=== PATIENT | male | born 1945 | race Caucasian/White ===

== ENCOUNTER 2019-06-01 16:17 | Inpatient (IN) ==
[2019-06-01] MEDS ORDERED: MoRPHine SULFATE 2 MG/ML CARP IV PRN (16:53)
[2019-06-01] MEDS ORDERED: MoRPHine SULFATE 4 MG/ML 1 ML CARP\\VIAL IV PRN ×2 (16:53→19:53)
[2019-06-01 17:38] LABS: Basophils # (auto) 0.01 K/uL (0-0.2); Eosinophils # (auto) 0.19 K/uL (0-0.5); Eosinophils % (auto) 0.9 %; Hemoglobin 13.5 g/dL (14.0-18.0); Immature Granulocytes # (auto) 0.07 K/uL (0.00-0.02); Immature Granulocytes % (auto) 0.3 %; Lymphocytes # (auto) 1.12 K/uL (1.2-3.4); Lymphocytes % (auto) 5.6 %; Mean Corpuscular Hemoglobin 26.3 pg (25-34); Mean Corpuscular Hgb Conc 31.4 g/dL (32-36); Mean Corpuscular Volume 83.8 fL (80-100); Mean Platelet Volume 9.9 fL (7.4-10.4); Monocytes # (auto) 1.51 K/uL (0.11-0.59); Monocytes % (auto) 7.5 %; Neutrophils # (auto) 17.16 K/uL (1.4-6.5); Neutrophils % (auto) 85.7 %; Nucleated RBC # (auto) 0.02 K/uL (0-0); Nucleated RBC % (auto) 0.1 %; Platelet Count 265 K/uL (130-400); RDW Coefficient of Variation 15.9 % (11.5-14.5); RDW Standard Deviation 48.6 fL (36.4-46.3); Red Blood Count 5.13 M/uL (4.7-6.1); White Blood Count 20.06 K/uL (4.8-10.8)
[2019-06-01 17:47] LABS: INR 1.1 (0.9-1.1); Partial Thromboplastin Time 26.6 Seconds (21.0-31.0); Prothrombin Time 11.1 Seconds (9.0-12.0)
[2019-06-01 17:54] LABS: BUN Creatinine Ratio 21.5 (10-20); Calcium 9.3 mg/dl (8.5-10.1); Est GFR (African American) 103.6; Est GFR (Non-African American) 89.4; Potassium 3.5 mmol/L (3.5-5.1)
--- NOTE | 2019-06-01 18:10 | XRay Report ---
XR chest 1V portable CLINICAL HISTORY: Right hip pain. COMPARISON STUDY: Chest radiograph November 21, 2009. FINDINGS: There is underlying emphysema. Cardiomediastinal silhouette is unremarkable. There is no pn eumothorax or pleural effusion. No consolidation to suggest pneumonia. Mild interstitial prominence. IMPRESSION: 1. No pneumothorax. 2. Subtle interstitial thickening which could reflect mild pulmonary edema superimposed upon emphysem a. ACT 112: Negative or not required by law. Electronically signed by: Vick Covington M.D. 06/01/2019 6:09 PM
--- NOTE | 2019-06-01 18:10 | XRay Report ---
XR hip RT 2V w pelvis HISTORY: 73 years-old Male r hip pain acute pelvic and right hip pain status post fall COMPARISON: CT abdomen and pelvis 12/30/2017 TECHNIQUE: AP view the pelvis with 2 views of the right hip FINDINGS: Mild to moderate bilateral hip osteoarthritis with chondrocalcinosis. Mildly demineralized appearance the bones. Mild soft tissue swelling about the right hip. There is an acute transcervical fracture o f the right femur with a few millimeters of impaction and superior displacement. No dislocation. No a cute pelvic fracture. IMPRESSION: Acute slightly impacted and minimally displaced transcervical fracture of the right femur . ACT 112: Negative or not required by law. The above report was generated using voice recognition software. It may contain grammatical, syntax o r spelling errors. Electronically signed by: Luis A Briseno M.D. 06/01/2019 6:08 PM
--- NOTE | 2019-06-01 18:11 | XRay Report ---
XR wrist RT min 3V routine HISTORY: 73 years-old Male r wrist pain acute right-sided wrist pain status post fall COMPARISON: None TECHNIQUE: 4 views of the right wrist FINDINGS: Demineralized appearance of the bones. Chondrocalcinosis of the TFCC and radiocarpal joint. Moderate radiocarpal with severe first carpometacarpal osteoarthritis. Moderate degenerative changes of the di stal radioulnar joint. Demineralized appearance of the bones. Cortical irregularity of the distal rad ial metaphysis is most pronounced along the dorsal margin. Mild soft tissue swelling. IMPRESSION: Cortical irregularity of the distal radial metaphysis is suggestive of a subtle acute non displaced fracture with mild associated soft tissue swelling. ACT 112: Negative or not required by law. The above report was generated using voice recognition software. It may contain grammatical, syntax o r spelling errors. Electronically signed by: Luis A Briseno M.D. 06/01/2019 6:10 PM
--- NOTE | 2019-06-01 18:22 | History & Physical Report ---
Date of Service June 01, 2019 Assessment & Plan (1) Closed right hip fracture: - Admit to med surg with tele - Ortho consulted, Dr. Cole network control technician - Hip fracture order set completed - Pain management with Tylenol [id number], Percocet, IV morphine sulfate as needed, bowel regimen ordered - Pt has not really started xarelto as this was only prescribed today. Start after surgical procedure. - Allow diet tonight and make NPO after midnight in anticipation of surgical procedure in morning. - Check type and screen - Imaging reviewed revealing an acute transcervical fracture of the right femur with a few millimeters of impaction and superior displacement. No dislocation. No acute pelvic fracture. (2) Right radial fracture: - Imaging reviewed showing cortical irregularity of the distal radial metaphysis is suggestive of a subtle acute nondisplaced fracture with mild associated soft tissue swelling. - Await ortho recs for splint (3) Atrial fibrillation with RVR: - Active on admission, cardizem not compatible with other IV meds, difficulty with placing second line. Will try lopressor IV 5 mg stat, and then Q5min prn, and give Toprol XL 25 mg PO now ( as per [employer] meds). BP elevated at 180s/90s. - Will hold on cardizem gtt at this time unless toprol not sufficient to convert. - Consider cardiology consultation - Dr. Dinero see's as outpt, was in office earlier this morning - Paroxysmal prior to this admission. - Recently had holter monitor evaluation about 2 weeks ago. - Xarelto to start after surgery, can continue asa 81 mg - EKG reviewed (4) CAD (coronary artery disease): -Continue ASA 81 mg, continue Imdur, lisinopril, metoprolol, simvastatin (5) Hypertension: -Medications as above, BP elevated at 187/77, monitor, likely due to pain (6) Hypercholesterolemia: -Continue simvastatin 40 mg HS (7) COPD (chronic obstructive pulmonary disease): - Currently smoking 1 ppd x 51 years. Will order nicotine patch to start now. - Check Vit D level with am labs, likely osteoporosis contributing to hip f racture. (8) Psoriasis: - stable (9) DVT prophylaxis: -Abdirahman on left leg, hold chemical ppx in the setting of likely surgery tomorrow CODE STATUS: Full Disposition: Patient from home, likely to remain in the hospital x1 to 2 days History of Present Illness Primary Care Provider: Mingo Dinero MD This is a 73-year-old male with past medical history of paroxysmal A. fib on Xarelto, HTN, HLD, CAD, COPD, current tobacco use with 50 pack year hx, hypokalemia, psoriasis who presents after fall sustained resulting in a right transcervical fracture of the right femur as well as a right distal radius fracture. The patient notes that he was outside attempting to picking tech some soda cans in his yard earlier this afternoon, when he lost his balance and fell in the yard. He had significant difficulty getting up and so layed in his yard for about 30 minutes. He was eventually able to crawl through the yard to his parked car, and get inside it. He called his who then notified EMS. He also notes that he was in this morning for a routine cardiology appointment, where he reviewed his holter monitor results with Dr. Dinero. He was given a Rx for Xarelto, but has not yet started taking this medication yet. He takes all other medications on the list routinely. Upon presentation to the ER the patient was found to be in A. fib with RVR with a heart rate of 130 as documented by EKG and is the same while at bedside. Allergies Allergy/AdvReac Type Severity Reaction Status Date / Time Penicillins Allergy Unknown ` Verified 06/01/19 18:11 Home Medications Home Medications Medication Instructions Recorded Confirmed Type Symbicort 2 puff INHALATION BID PRN 12/27/17 06/01/19 History aspirin [Aspir-81] 81 mg PO QAM 12/27/17 06/01/19 History isosorbide mononitrate 30 mg PO QAM 12/27/17 06/01/19 History lisinopril 20 mg PO QAM 12/27/17 06/01/19 History metoprolol succinate 25 mg PO BID 12/27/17 06/01/19 History simvastatin 40 mg PO HS 12/27/17 06/01/19 History amiodarone 200 mg tablet 200 mg PO BID #60 tab 06/01/19 06/01/19 Rx rivaroxaban 20 mg tablet 20 mg PO DAILY #90 tab 06/01/19 06/01/19 Rx Past Med/Surg History Medical History Abscess (Acute) CAD (coronary artery disease) (Chronic) COPD (chronic obstructive pulmonary disease) (Chronic) Diverticulitis (Acute) Dyslipidemia (Chronic) History of left heart catheterization (Resolved) Hypertension (Chronic) Psoriasis (Chronic) Surgical History Stented coronary artery (Resolved) Family History Father Myocardial infarction Social History Preferred Language: Irish Communication Ability: Effective Beliefs That Will Affect Care: None marital status: Current Living Situation: Spouse Other Information That Helps Us Care for You: No Feels Safe at Home: Yes Safety Concerns: Feels Safe At This Time Smoking Status: Never smoker Tobacco Type: cigarettes ; Cigarettes Per Day: 20 ; Second Hand Exposure: No ; Hx Alcohol Use: No Hx Substance Use: No Review of Systems Review of Systems: Constitutional: No fever, sweats or chills, + smells of smoke Eyes: No diplopia, no worsening or blurred vision ENT: normal hearing, no trouble swallowing Respiratory: No cough, sputum, dyspnea at rest or on exertion Cardiovascular: No chest pain, tightness or palpitations Abdomen: No pain, nausea, vomiting, diarrhea or constipation Musculoskeletal: + R hip joint pain, R wrist pain with minimal movement. No calf pain or swelling Neurologic: No weakness, numbness/tingling, or balance problems Psychiatric: No anxiety or depression Skin: No rash or itch Physical Exam Physical Exam: General: awake, alert, no apparent distress, + smells of smoke Head: Normocephalic, atraumatic ENT: PERRL, EOMI, no pharyngeal exudate, mucous membranes moist Chest: Clear to auscultation, on2L via NC, no adventitious breath sounds Cardiac: Afib with RVR with HR in the 130s at rest laying in bed, no murmur, no JVD, normal peripheral pulses, good capillary refill Abdominal: NABS x 4 quadrants, soft, nontender to palpation, no rebound, guarding or tenderness Extremities: + RLE externally rotated and shortened, pain with palpation over the R hip region, sensation to light touch intact distally. R wrist pain with pronation. Otherwise normal inspection, no peripheral edema or erythema, calfs nontender to palpation Psych: Normal mood and affect Neuro: AAO x 3, no motor deficits, speech is clear, no peripheral sensory deficits Constitutional: WD/WN, vitals as above Eyes: normal visual nicolas by confrontation and + anicteric sclerae Neck: normal visual inspection and trachea midline Respiratory: normal respiratory effort, lungs clear to auscultation Cardiovascular: Rate/Rhythm: + irregularly irregular Gastrointestinal (Abdomen): Inspection/Auscultation: abdomen not distended Percussion/Palpation: abdomen soft; abdomen nontender Musculoskeletal: Head/Neck/Chest: normocephalic and head atraumatic Neg for peripheral LE edema, + pedal pulses Skin: no rashes, warm and dry Neurologic: awake; not confused Speech / Cognition: normal speech Psychiatric: A+Ox3, euthymic affect Lymphatic: Exam as done by Amanda Noriega DO Results & Data Vital Signs (Past 12 Hours) Vital Signs Temp Pulse Resp BP Pulse Ox 06/01/19 16:27 36.8 C 78 18 211/92 H 99 Diagnostic Findings XR chest 1V portable CLINICAL HISTORY: Right hip pain. COMPARISON STUDY: Chest radiograph November 21, 2009. FINDINGS: There is underlying emphysema. Cardiomediastinal silhouette is unremarkable. There is no pneumothorax or pleural effusion. No consolidation to suggest pneumonia. Mild interstitial prominence. IMPRESSION: 1. No pneumothorax. 2. Subtle interstitial thickening which could reflect mild pulmonary edema superimposed upon emphysema. ACT 112: Negative or not required by law. XR hip RT 2V w pelvis HISTORY: 73 years-old Male r hip pain acute pelvic and right hip pain status post fall COMPARISON: CT abdomen and pelvis 12/30/2017 TECHNIQUE: AP view the pelvis with 2 views of the right hip FINDINGS: Mild to moderate bilateral hip osteoarthritis with chondrocalcinosis. Mildly demineralized appearance the bones. Mild soft tissue swelling about the right hip. There is an acute transcervical fracture of the right femur with a few millimeters of impaction and superior displacement. No dislocation. No acute pelvic fracture. IMPRESSION: Acute slightly impacted and minimally displaced transcervical fracture of the right femur. ACT 112: Negative or not required by law. The above report was generated using voice recognition software. It may contain grammatical, syntax or spelling errors. Electronically signed by: Luis A Briseno M.D. 06/01/2019 6:08 PM XR wrist RT min 3V routine HISTORY: 73 years-old Male r wrist pain acute right-sided wrist pain status post fall COMPARISON: None TECHNIQUE: 4 views of the right wrist FINDINGS: Demineralized appearance of the bones. Chondrocalcinosis of the TFCC and radiocarpal joint. Moderate radiocarpal with severe first carpometacarpal osteoarthritis. Moderate degenerative changes of the distal radioulnar joint. Demineralized appearance of the bones. Cortical irregularity of the distal radial metaphysis is most pronounced along the dorsal margin. Mild soft tissue swelling. IMPRESSION: Cortical irregularity of the distal radial metaphysis is suggestive of a subtle acute nondisplaced fracture with mild associated soft tissue swelling. ACT 112: Negative or not required by law. The above report was generated using voice recognition software. It may contain grammatical, syntax or spelling errors. ECG Additional Comments: 01-JUN-2019 18:15:01 [facility]-EDSTAT ROUTINE RETRIEVAL Poor data quality, interpretation may be adversely affected Atrial fibrillation with rapid ventricular response with premature ventricular or aberrantly conducted complexes Inferior infarct , age undetermined Marked ST abnormality, possible anterolateral subendocardial injury Abnormal ECG When compared with ECG of 24-NOV-2009 06:16, Significant changes have occurred 25mm/s 10mm/mV 150Hz 9.0.9 12SL 241 JEZ: 10 Referred by: REFERRED SELF Unconfirmed Vent. rate 130 BPM MT interval * ms QRS duration 108 ms QT/QTc 338/497 ms P-R-T axes * 46 265 Code Status & VTE Plan Code Status Full code - discussed with the pt at bedside. Supervising Physician Co-Signing Physician Notes Pt seen and examined by me. States purely mechanical fall. Has pain with any movement of R LE. Denies chest pain or SOB. Tolerating PO without issue. Agree with HPI/ROS as noted by PA See above for my exam in PE section Agree with plan as outlined above R hip fx, planning for OR R wrist fx, nondisplaced Afib, hx of same on xarelto. Monitor PG Care Time/CCT Total # of Minutes Spent Total Time Spent with Patient: Total time spent is greater than 50% in coordination of care (as documented) at patient's floor/unit and/or counseling patient: Coding Level of Care Code 25560 Initial Inpt Care Lvl 3 Diagnoses Closed right hip fracture S72.001A Right radial fracture S52.91XA Atrial fibrillation with RVR I48.91 CAD (coronary artery disease) I25.10 Associated angina: without angina Coronary Disease-Associated Artery/Lesion type: [place] artery [place] vs. transplanted heart: [place] heart Hypertension I10 Hypertension type: essential hypertension Hypercholesterolemia E78.00 COPD (chronic obstructive pulmonary disease) J44.9 COPD type: unspecified COPD Psoriasis L40.9 DVT prophylaxis Z29.9 (1) CAD (coronary artery disease) Associated angina: without angina Coronary Disease-Associated Artery/Lesion type: [place] artery [place] vs. transplanted heart: [place] heart Qualified Code(s): I25.10 - Atherosclerotic heart disease of [place] coronary artery without angina pectoris (2) COPD (chronic obstructive pulmonary disease) COPD type: unspecified COPD Qualified Code(s): J44.9 - Chronic obstructive pulmonary disease, unspecified (3) Hypertension Hypertension type: essential hypertension Qualified Code(s): I10 - Essential (primary) hypertension
[2019-06-01] MEDS ORDERED: dilTIAZem HCl 5 MG/ML 5 ML VIAL IV STA (18:29)
[2019-06-01] MEDS ORDERED: dilTIAZem HCL 125 MG in DEXTROSE 5% 100 ML IV SCH (18:30)
[2019-06-01] MEDS ORDERED: METOPROLOL TARTRATE 1 MG/ML VIAL IV PRN (18:53)
[2019-06-01] MEDS ORDERED: METOPROLOL TARTRATE 1 MG/ML VIAL IV STA (18:58)
[2019-06-01 19:18] LABS: Appearance Urine Cloudy (Clear); Bacteria Urine Automated Negative (Negative); Bilirubin Urine Negative (Negative); Blood Urine 2+ (Negative); Color Urine Dark Yellow; Epithelial Cell Urine Auto 20-30 /lpf (0-5); Glucose Urine UA Negative (Negative); Ketones Urine 1+ (Negative); Leukocyte Esterase Urine Negative (Negative); Nitrite Urine Negative (Negative); Protein Urine 1+ (Negative); RBC Urine Automated >30 /hpf (0-4); Specific Gravity Urine 1.028 (1.000-1.030); Urobilinogen Urine Negative (Negative); pH Urine 5.5 (4.5-7.5)
[2019-06-01] MEDS: METOPROLOL SUCC 50MG EXT REL TAB PO SCH ×2 (19:28→23:36)
[2019-06-01] MEDS ORDERED: NALOXONE HCL 0.4 MG/1 ML VIAL/CARP IV PRN (19:53)
[2019-06-01] MEDS ORDERED: MAGNESIUM HYDROXIDE SUSP 30 ML UDC PO PRN (19:53)
[2019-06-01] MEDS ORDERED: bisacodyL 10 MG SUPP PR PRN (19:53)
[2019-06-01] MEDS: OXYCODONE HCL IR 5 MG TAB (IMMEDIATE RELEASE) PO PRN (21:30)
[2019-06-01] MEDS: ACETAMINOPHEN 500 MG TAB PO SCH (21:31)
[2019-06-01] MEDS: AMIODARONE 200 MG TAB PO SCH (21:32)
[2019-06-01] MEDS: DOCUSATE SODIUM/SENNA 50/8.6MG TAB PO SCH (21:32)
[2019-06-01] MEDS: SIMVASTATIN 40 MG TAB PO SCH (21:33)
[2019-06-01] MEDS: NICOTINE 21 MG/24 HR TDSY TD SCH (21:34)
--- NOTE | 2019-06-01 22:47 | Emergency Department Note ---
Entered by Monica Landaverde acting as a scribe for Villa Hudson DO History of Present Illness General Chief complaint: Fall Stated complaint: FALL, R HIP & WRIST PAIN History of Present Illness Onset (ago): hour(s) (prior to arrival) Location: right (fall) Pain Consistency: + other (episode) Maximum Pain Intensity: 8 Exacerbated By: + other (pressure and rotating hip) Associated symptoms: + denies other symptoms (numbness and tingling, back pain) and + other (right hip pain, right wrist pain); no chest pain The patient is a 73 year old M who presents to the Emergency Room with complaints of an episode of a fall that occurred prior to arrival. The patient states that he was outside, trying to grape picker something from the end of his driveway, when he ended up falling. He adds that he ended up falling on his right side and injured his right wrist and right hip. He notes that due to his right hip pain, he cannot put pressure on it or rotate his hip. He denies experiencing any numbness or tingling in his toes and fingers. He also denies hitting his head from the fall. He states that he is not on any blood thinning medications. He denies that he is currently experiencing back pain and chest pain. He states that he has a history of stent placement. He adds that he is a current smoker. Home Medications Home Medications Medication Instructions Recorded Confirmed Type Symbicort 2 puff INHALATION BID PRN 12/27/17 06/01/19 History aspirin [Aspir-81] 81 mg PO QAM 12/27/17 06/01/19 History isosorbide mononitrate 30 mg PO QAM 12/27/17 06/01/19 History lisinopril 20 mg PO QAM 12/27/17 06/01/19 History metoprolol succinate 25 mg PO BID 12/27/17 06/01/19 History simvastatin 40 mg PO HS 12/27/17 06/01/19 History amiodarone 200 mg tablet 200 mg PO BID #60 tab 06/01/19 06/01/19 Rx rivaroxaban 20 mg tablet 20 mg PO DAILY #90 tab 06/01/19 06/01/19 Rx Allergies Allergy/AdvReac Type Severity Reaction Status Date / Time Penicillins Allergy Unknown ` Verified 06/01/19 18:11 Past Med/Surg History Social History Preferred Language: Luxembourgish Communication Ability: Effective Beliefs That Will Affect Care: None marital status: Current Living Situation: Spouse Other Information That Helps Us Care for You: No Feels Safe at Home: Yes Safety Concerns: Feels Safe At This Time Smoking Status: Never smoker Tobacco Type: cigarettes ; Cigarettes Per Day: 20 ; Second Hand Exposure: No ; Hx Alcohol Use: No Hx Substance Use: No Review of Systems See HPI for pertinent positives & negatives. and A total of 10 systems reviewed and were otherwise negative Physical Exam Vital Signs Vital Signs - 24 hr 06/01/19 16:27 06/01/19 17:01 06/01/19 17:31 Temperature 36.8 C Temperature Source Oral Pulse Rate 78 72 68 Pulse Rate from SpO2 Sensor 65 63 Respiratory Rate 18 23 25 H Blood Pressure 211/92 H 182/84 H 187/77 H Blood Pressure Mean 131 95 126 Pulse Oximetry 99 94 95 Oxygen Delivery Method Room Air Sepsis Recent Fever Within 48 Hours No Sepsis New/Unexplained Change in Mental Status No Sepsis Action Taken by Nursing No Action Required GENERAL: alert, well appearing, well nourished, no distress, non-toxic HEAD: normal cephalic, atraumatic EYE EXAM: normal conjunctiva, PERRL and EOM's grossly intact OROPHARYNX: no exudate, no erythema, lips, buccal mucosa, and tongue normal and mucous membranes are moist EARS: TMs clear b/l NECK: supple, no nuchal rigidity, no adenopathy, non-tender CHEST: stable to compression anteriorly and posteriorly LUNGS: clear to auscultation. Normal chest wall mechanics HEART: no murmurs, S1 normal and S2 normal ABDOMEN: abdomen soft, non-tender, normo-active bowel sounds, no masses, no rebound or guarding. PELVIS: stable to compression anteriorly and posteriorly BACK: Back is symmetrical on inspection and there is no deformity, no midline tenderness, no CVA tenderness. UPPER EXTREMITIES: Full active and passive range of motion of all extremities with exception of right wrist, skin intact radial pulse 2/4, no tenderness throughout digits, forearm and shoulder. LOWER EXTREMITIES: Full active and passive range of motion of all extremities with exception of right leg which is in 30 degree flexion, significant pain to rotation and palpation. No tenderness to palpation of the mid femur tracking through, knee, schultz and foot. Able to wiggle toes. DP pulse 2/4. NEURO EXAM: Normal sensorium, cranial nerves II-XII grossly intact, normal speech. GCS: 15. Course Course ED COURSE: Vital signs were reviewed and showed hypertension. The patients medical record was reviewed The above diagnostic studies were performed and reviewed. ED treatments and interventions as stated above. 1648: The patient was evaluated in room A3. A complete history and physical examination was performed. 1830: Patient declines any chest pain and shortness of breath. Patient is currently in A fib with RVR. He states that he wants to go with Dr. Cole, Orthopedic Surgeon. 185: I reviewed the patient's case with Patricia Webb. [facility] Hospitalist. She will evaluate the patient for further management. She states that the admitting service wants to hold the Cardizem drip because we are unable to get a secondary IV into the patient. She wants me to start the patient on IV Lopressor. 1857: Upon reevaluation, the patient is not doing any better. I discussed my findings with the patient and he understands and agrees with the treatment plan. Based on the patients age, coexisting illnesses, exam and lab findings the decision to treat as an inpatient was made. The patient remained stable while under my care. The patient will be evaluated for further management. Administered Medications Acetaminophen (Tylenol) 1,000 mg PO Q8 RAMON Stop: 07/01/19 21:59 Last Admin: 06/01/19 21:31 Dose: 1,000 mg Documented by: [id number] Amiodarone HCl (Cordarone) 200 mg PO BID RAMON Stop: 07/01/19 20:59 Last Admin: 06/01/19 21:32 Dose: 200 mg Documented by: [id number] Metoprolol Succinate (Toprol Xl) 25 mg PO BID RAMON Stop: 07/01/19 18:59 Last Admin: 06/01/19 19:28 Dose: 25 mg Documented by: [id number] Nicotine (Nicoderm Cq) 21 mg TD QAM RAMON Stop: 07/01/19 20:59 Last Admin: 06/01/19 21:34 Dose: Not Given Documented by: [id number] Oxycodone HCl (Roxicodone Immediate Rel) 5 mg PO Q4H PRN PRN Reason: MODERATE Pain (Scale 4,5,6) Stop: 06/15/19 19:52 Last Admin: 06/01/19 21:30 Dose: 5 mg Documented by: [id number] Senna/Docusate Sodium (Senokot S) 2 tab PO [facility] Stop: 07/01/19 20:59 Last Admin: 06/01/19 21:32 Dose: 2 tab Documented by: [id number] Simvastatin (Zocor) 40 mg PO [facility] Stop: 07/01/19 20:59 Last Admin: 06/01/19 21:33 Dose: 40 mg Documented by: [id number] Discontinued Medications Diltiazem HCl (Cardizem) 10 mg IV NOW STA Stop: 06/01/19 18:30 Last Admin: 06/01/19 20:03 Dose: Not Given Documented by: [id number] Diltiazem HCl 125 mg/ Dextrose 125 mls @ 5 mls/hr IV .Q24H RAMON; Protocol Stop: 07/01/19 18:29 Last Admin: 06/01/19 20:03 Dose: Not Given Documented by: [id number] Diltiazem HCl 10 mg/ Syringe 2 mls @ 1 mls/min IV ONE ONE Stop: 06/01/19 18:46 Last Admin: 06/01/19 20:03 Dose: Not Given Documented by: [id number] Metoprolol Tartrate (Lopressor) 5 mg IV NOW STA Stop: 06/01/19 18:59 Last Admin: 06/01/19 19:14 Dose: 5 mg Documented by: [id number] Morphine Sulfate (Morphine Sulfate) 4 mg IV Q1H PRN PRN Reason: Severe Pain (Rating 7,8,9,10) Stop: 06/15/19 16:52 Last Admin: 06/01/19 17:36 Dose: 4 mg Documented by: [id number] Critical Care Time Critical Care Time: Yes Total Critical Care Time: 32 I have personally spent 32 minutes of critical care time in the direct management of this patient. This includes bedside care, interpretation of diagnostic studies, and testing, discussion with consultants, patient, and family members, and other required patient management activities. This 32 minutes is in excess of all separately billable procedures. Medical Decision Making Differential Diagnosis Differential diagnoses include major intracranial, cervical, spinal, thoracic, abdominal, pelvic and neurologic injury. Fracture, contusion, sprain, strain, laceration, abrasions included as well. Medical Records Attestation: I reviewed the patient's medical records. Home Medications Current Medication List: was personally reviewed by me Laboratory Data Attestation: I reviewed the patient's lab results. Result diagrams: 06/01/19 17:20 06/01/19 17:20 Lab Results 06/01/19 06/01/19 06/01/19 Range/Units 17:20 17:20 17:20 WBC 20.06 H (4.8-10.8) K/uL RBC 5.13 (4.7-6.1) M/uL Hgb 13.5 L (14.0-18.0) g/dL Hct 43.0 (42-52) % MCV 83.8 (80-100) fL MCH 26.3 (25-34) pg MCHC 31.4 L (32-36) g/dL RDW Std Deviation 48.6 H (36.4-46.3) fL RDW Coeff of Ike 15.9 H (11.5-14.5) % Plt Count 265 (130-400) K/uL MPV 9.9 (7.4-10.4) fL Immature Gran % (Auto) 0.3 % Neut % (Auto) 85.7 % Lymph % (Auto) 5.6 % Irion % (Auto) 7.5 % Eos % (Auto) 0.9 % Baso % (Auto) 0.0 % Immature Gran # (Auto) 0.07 H (0.00-0.02) K/uL Neut # (Auto) 17.16 H (1.4-6.5) K/uL Lymph # (Auto) 1.12 L (1.2-3.4) K/uL Irion # (Auto) 1.51 H (0.11-0.59) K/uL Eos # (Auto) 0.19 (0-0.5) K/uL Baso # (Auto) 0.01 (0-0.2) K/uL Absolute Nucleated RBC 0.02 H (0-0) K/uL Nucleated RBC % (auto) 0.1 % PT 11.1 (9.0-12.0) Seconds INR 1.1 (0.9-1.1) APTT 26.6 (21.0-31.0) Seconds PTT Ratio 1.0 Sodium 140 (136-145) mmol/L Potassium 3.5 (3.5-5.1) mmol/L Chloride 103 (98-107) mmol/L Carbon Dioxide 34 H (21-32) mmol/L Anion Gap 3.0 (3-11) BUN 17 (7-18) mg/dl Creatinine 0.81 (0.6-1.4) mg/dl Est Cr Clr Drug Dosing 97.0 ml/min Est GFR ( Amer) 103.6 Est GFR (Non-Af Amer) 89.4 BUN/Creatinine Ratio 21.5 H (10-20) Glucose 112 H (70-99) mg/dl Calcium 9.3 (8.5-10.1) mg/dl Blood Type Antibody Screen 06/01/19 Range/Units 17:20 WBC (4.8-10.8) K/uL RBC (4.7-6.1) M/uL Hgb (14.0-18.0) g/dL Hct (42-52) % MCV (80-100) fL MCH (25-34) pg MCHC (32-36) g/dL RDW Std Deviation (36.4-46.3) fL RDW Coeff of Ike (11.5-14.5) % Plt Count (130-400) K/uL MPV (7.4-10.4) fL Immature Gran % (Auto) % Neut % (Auto) % Lymph % (Auto) % Irion % (Auto) % Eos % (Auto) % Baso % (Auto) % Immature Gran # (Auto) (0.00-0.02) K/uL Neut # (Auto) (1.4-6.5) K/uL Lymph # (Auto) (1.2-3.4) K/uL Irion # (Auto) (0.11-0.59) K/uL Eos # (Auto) (0-0.5) K/uL Baso # (Auto) (0-0.2) K/uL Absolute Nucleated RBC (0-0) K/uL Nucleated RBC % (auto) % PT (9.0-12.0) Seconds INR (0.9-1.1) APTT (21.0-31.0) Seconds PTT Ratio Sodium (136-145) mmol/L Potassium (3.5-5.1) mmol/L Chloride (98-107) mmol/L Carbon Dioxide (21-32) mmol/L Anion Gap (3-11) BUN (7-18) mg/dl Creatinine (0.6-1.4) mg/dl Est Cr Clr Drug Dosing ml/min Est GFR ( Amer) Est GFR (Non-Af Amer) BUN/Creatinine Ratio (10-20) Glucose (70-99) mg/dl Calcium (8.5-10.1) mg/dl Blood Type O Positive Antibody Screen NEGATIVE Imaging Data Radiologist's Impression: Radiology results as stated below per my review and the radiologist's interpretation: XR chest 1V portable CLINICAL HISTORY: Right hip pain. COMPARISON STUDY: Chest radiograph November 21, 2009. FINDINGS: There is underlying emphysema. Cardiomediastinal silhouette is u nremarkable. There is no pneumothorax or pleural effusion. No consolidation to suggest pneumonia. Mild interstitial prominence. IMPRESSION: 1. No pneumothorax. 2. Subtle interstitial thickening which could reflect mild pulmonary edema superimposed upon emphysema. ACT 112: Negative or not required by law. Electronically signed by: Vick Covington M.D. 06/01/2019 6:09 PM XR hip RT 2V w pelvis HISTORY: 73 years-old Male r hip pain acute pelvic and right hip pain status post fall COMPARISON: CT abdomen and pelvis 12/30/2017 TECHNIQUE: AP view the pelvis with 2 views of the right hip FINDINGS: Mild to moderate bilateral hip osteoarthritis with chondrocalcinosis. Mildly demineralized appearance the bones. Mild soft tissue swelling about the right hip. There is an acute transcervical fracture of the right femur with a few millimeters of impaction and superior displacement. No dislocation. No acute pelvic fracture. IMPRESSION: Acute slightly impacted and minimally displaced transcervical fracture of the right femur. ACT 112: Negative or not required by law. The above report was generated using voice recognition software. It may contain grammatical, syntax or spelling errors. Electronically signed by: Luis A Briseno M.D. 06/01/2019 6:08 PM XR wrist RT min 3V routine HISTORY: 73 years-old Male r wrist pain acute right-sided wrist pain status post fall COMPARISON: None TECHNIQUE: 4 views of the right wrist FINDINGS: Demineralized appearance of the bones. Chondrocalcinosis of the TFCC and radiocarpal joint. Moderate radiocarpal with severe first carpometacarpal osteoarthritis. Moderate degenerative changes of the distal radioulnar joint. Demineralized appearance of the bones. Cortical irregularity of the distal radial metaphysis is most pronounced along the dorsal margin. Mild soft tissue swelling. IMPRESSION: Cortical irregularity of the distal radial metaphysis is suggestive of a subtle acute nondisplaced fracture with mild associated soft tissue swelling. ACT 112: Negative or not required by law. The above report was generated using voice recognition software. It may contain grammatical, syntax or spelling errors. Electronically signed by: Luis A Briseno M.D. 06/01/2019 6:10 PM ECG Data Attestation: I personally reviewed and interpreted this ECG as follows: Indication: + other (trauma) Rate (beats per minute): 130 Rhythm: + atrial fibrillation (with RVR) ECG Intervals/blocks: + Prolonged QT ECG [place]: + Normal ECG ST segments: + ST depression (Septal, anterior and lateral) Blood Pressure Blood Pressure Findings: Elevated blood pressure Blood Pressure Disposition: further management by hospitalist MDM Narrative Patient is a 73-year-old male who presents the ER following a mechanical fall onto his right hip. IV was established blood work was obtained. X-ray showed a right hip fracture as well as a right distal radial fracture. They requested not to be seen by [facility] but did not care what other group. Labs show a leukocytosis of 20,000. No significant anemia. INR was unremarkable. BMP was unremarkable. UA was contaminated with multiple epithelial cells. Chest x-ray was unremarkable. Discussed with Dr. Cole and patient was accepted. While in the ER patient went into A. fib with RVR. EKG was obtained. Initially ordered Cardizem drip and bolus. Nishi from the hospitalist recommended sw itching to Lopressor and I canceled Cardizem. This was ordered 5 mg every 15 minutes. Patient was updated and admitted to the hospital for further work-up for hip fracture, distal radial fracture and A. fib with RVR. Impression & Plan Closed fracture of right hip, Atrial fibrillation with RVR, Distal radius fracture, right Discharge Plan Visit Data *Final* Discharge Date/Time: 06/01/19 19:10 Chief Complaint: Fall Stated Complaint: FALL, R HIP & WRIST PAIN ED Provider: Villa Hudson Discharge Problem: Closed fracture of right hip, Atrial fibrillation with RVR, Distal radius fracture, right Patient Disposition: Admitted As Inpatient Discharge Instructions Interventions: ED Discharge Assessment Last Done: 06/01/19 19:10 Discharge Problem: Closed fracture of right hip Qualifiers: Encounter type: initial encounter Qualified Code(s): S72.001A - Fracture of unspecified part of neck of right femur, initial encounter for closed fracture Distal radius fracture, right Qualifiers: Encounter type: initial encounter Fracture type: closed Fracture morphology: unspecified fracture morphology Qualified Code(s): S52.501A - Unspecified fracture of the lower end of right radius, initial encounter for closed fracture The scribe's documentation has been prepared under my direction and personally reviewed by me in its entirety. I confirm that the note above accurately refl ects all work, treatment, procedures, and medical decision making performed by me.
[2019-06-02 05:40] LABS: Hematocrit (blood only) 39.8 % (42-52); Hemoglobin 12.8 g/dL (14.0-18.0); Mean Corpuscular Hemoglobin 26.5 pg (25-34); Mean Corpuscular Hgb Conc 32.2 g/dL (32-36); Mean Corpuscular Volume 82.4 fL (80-100); Mean Platelet Volume 9.5 fL (7.4-10.4); Platelet Count 254 K/uL (130-400); RDW Standard Deviation 48.4 fL (36.4-46.3); Red Blood Count 4.83 M/uL (4.7-6.1); White Blood Count 15.69 K/uL (4.8-10.8)
[2019-06-02] MEDS ORDERED: CLINDAMYCIN 900 MG in DEXTROSE 5% 50 ML IV SCH (06:00)
[2019-06-02] MEDS: ACETAMINOPHEN 500 MG TAB PO SCH ×3 (06:05→21:37)
[2019-06-02 06:10] LABS: BUN Creatinine Ratio 18.7 (10-20); Calcium 8.9 mg/dl (8.5-10.1); Creatinine Clr Calc Pharmacy 83.4 ml/min; Est GFR (African American) 91.8; Est GFR (Non-African American) 79.2; Potassium 3.7 mmol/L (3.5-5.1)
[2019-06-02] MEDS: OXYCODONE HCL IR 5 MG TAB (IMMEDIATE RELEASE) PO PRN (06:15)
[2019-06-02] MEDS: ASPIRIN 81 MG ECTAB PO SCH (08:19)
[2019-06-02] MEDS: METOPROLOL SUCC 50MG EXT REL TAB PO SCH ×3 (08:21→21:37)
[2019-06-02] MEDS: lisinopriL 20 MG TAB PO SCH (08:21)
[2019-06-02] MEDS: ISOSORBIDE MONO EXTENDED REL 30 MG TABCR PO SCH (09:02)
[2019-06-02] MEDS: AMIODARONE 200 MG TAB PO SCH ×2 (09:02→21:45)
[2019-06-02] MEDS: bisacodyL 5 MG TABEC PO SCH (09:03)
[2019-06-02] MEDS: NICOTINE 21 MG/24 HR TDSY TD SCH (09:03)
[2019-06-02] MEDS: FLUTICASONE/VILANTEROL 100/25MCG 14 PUFFS/INHALER INH SCH (09:05)
--- NOTE | 2019-06-02 09:07 | Orthopedic Consultation ---
Date of Consultation June 02, 2019 Assessment & Plan (1) Closed fracture of right hip: He is n.p.o. at this time. We will plan to take him the operating room today for a right hip cemented bipolar hemiarthroplasty versus total hip replacement. procedure was explained clearly risks benefits and alternatives to surgery and consent was obtained. (2) Distal radius fracture, right: He is in a cock-up wrist splint at this time. We will plan on placing him into a short arm cast. History of Present Illness Reason for Consultation: Right hip pain and right wrist pain Attending Physician: Amanda Noriega DO History of Present Illness Mingo is a 73-year-old male who had a fall at home yesterday while in his driveway. He was able to eventually crawl to his vehicle and call for help. Is brought to the emergency department x-rays were obtained he is found to have a displaced femoral neck fracture as well as a distal radius fracture. He denies any hip pain prior to this fall. Previously ambulated independently. He complains of right wrist and right hip pain at this time. No numbness or tingling. No other musculoskeletal complaints. He was just at his arcgis developer yesterday and apparently was started on Xarelto which she has not taken yet. Allergies Allergy/AdvReac Type Severity Reaction Status Date / Time Penicillins Allergy Unknown ` Verified 06/01/19 18:11 Home Medications Home Medications Medication Instructions Recorded Confirmed Type Symbicort 2 puff INHALATION BID PRN 12/27/17 06/01/19 History aspirin [Aspir-81] 81 mg PO QAM 12/27/17 06/01/19 History isosorbide mononitrate 30 mg PO QAM 12/27/17 06/01/19 History lisinopril 20 mg PO QAM 12/27/17 06/01/19 History metoprolol succinate 25 mg PO BID 12/27/17 06/01/19 History simvastatin 40 mg PO HS 12/27/17 06/01/19 History amiodarone 200 mg tablet 200 mg PO BID #60 tab 06/01/19 06/01/19 Rx rivaroxaban 20 mg tablet 20 mg PO DAILY #90 tab 06/01/19 06/01/19 Rx Patient History Medical History Abscess (Acute) CAD (coronary artery disease) (Chronic) COPD (chronic obstructive pulmonary disease) (Chronic) Diverticulitis (Acute) Dyslipidemia (Chronic) History of left heart catheterization (Resolved) Hypertension (Chronic) Psoriasis (Chronic) Surgical History Stented coronary artery (Resolved) Family History Father Myocardial infarction Social History Preferred Language: Polish Communication Ability: Effective Beliefs That Will Affect Care: None marital status: Current Living Situation: Spouse Other Information That Helps Us Care for You: No Feels Safe at Home: Yes Safety Concerns: Feels Safe At This Time Smoking Status: Never smoker Tobacco Type: cigarettes ; Cigarettes Per Day: 20 ; Second Hand Exposure: No ; Hx Alcohol Use: No Hx Substance Use: No Review of Systems Musculoskeletal: as per Subjective / HPI Neurologic: no loss of sensation, no tingling and no numbness Physical Exam Physical Exam: He is alert and oriented. No acute distress. Although he is drowsy. On examination of the right upper extremity he has tenderness palpation of the distal radius. He is able to flex and extend his thumb and fingers appropriately. But does have pain with in the wrist area with motion of his fingers. He is neurovascular intact. Examination of the right lower extremity his leg is shortened and externally rotated. I did not do any motion of his hip today. He is able dorsiflex plantarflex appropriately. He is neurovascular intact. No pain with motion of the left hip. He does have lesions all around his extremities from eczema he states. No history of any cellulitis or infections. Skin: + lesion Results & Data ([facility]) Vital Signs (Past 12 Hours) Vital Signs Temp Pulse Pulse Resp BP Pulse Ox 06/02/19 07:36 72 06/02/19 06:46 37.3 C 74 20 93/59 L 92 06/02/19 03:13 37.3 C 63 20 93/60 L 96 06/01/19 22:42 36.5 C 94 H 18 117/77 95 06/01/19 21:25 116 H Diagnostic Findings X-rays of the wrist were reviewed which show a nondisplaced distal radius fracture X-rays of his hip were reviewed which show a displaced right femoral neck fracture PG Care Time/CCT Total # of Minutes Spent Total Time Spent with Patient: Total time spent is greater than 50% in coordination of care (as documented) at patient's floor/unit and/or counseling patient: Coding Level of Care Code 66980 Initial Inpt Care Lvl 3 Diagnoses Closed fracture of right hip S72.001A Encounter type: initial encounter Distal radius fracture, right S52.501A Encounter type: initial encounter Fracture morphology: unspecified fracture morphology Fracture type: closed (1) Closed fracture of right hip Encounter type: initial encounter Qualified Code(s): S72.001A - Fracture of unspecified part of neck of right femur, initial encounter for closed fracture (2) Distal radius fracture, right Encounter type: initial encounter Fracture morphology: unspecified fracture morphology Fracture type: closed Qualified Code(s): S52.501A - Unspecified fracture of the lower end of right radius, initial encounter for closed fracture
--- NOTE | 2019-06-02 11:18 | Electrocardiogram Report ---
Test Reason : Blood Pressure : / mmHG Vent. Rate : 130 BPM Atrial Rate : 096 BPM P-R Int : 000 ms QRS Dur : 108 ms QT Int : 338 ms P-R-T Axes : 000 046 265 degrees QTc Int : 497 ms Poor data quality, interpretation may be adversely affected Atrial fibrillation with rapid ventricular response with premature ventricular or aberrantly conducte d complexes Inferior infarct , age undetermined Marked ST abnormality, possible anterolateral subendocardial injury Abnormal ECG When compared with ECG of 24-NOV-2009 06:16, Atrial fibrillation is now Present ST now depressed in Anterolateral leads Confirmed by Brett Mejia ([id number]) on 06/02/2019 11:18:34 AM Referred By: REFERRED SELF Confirmed By:Brett Mejia
[2019-06-02] MEDS ORDERED: ALBUT/IPRATROP 3MG/0.5MG NEB 3 ML VIAL NEB STA (12:32)
--- NOTE | 2019-06-02 12:46 | Hospitalist Progress Note ---
Date of Service June 02, 2019 Assessment & Plan (1) Closed right hip fracture: - Admit to med surg with tele - Ortho consulted, Dr. Cole hearing healthcare practitioner - Hip fracture order set completed - Pain management with Tylenol [id number], Percocet, IV morphine sulfate as needed, bowel regimen ordered - Pt has not really started xarelto as this was just prescribed on day of admission. Plan to start after surgical procedure. - Check type and screen - Imaging reviewed revealing an acute transcervical fracture of the right femur with a few millimeters of impaction and superior displacement. No dislocation. No acute pelvic fracture. Plan for OR today--> pending ECHO without significant abnormalities as below (2) Right radial fracture: - Imaging reviewed showing cortical irregularity of the distal radial metaphysis is suggestive of a subtle acute nondisplaced fracture with mild associated soft tissue swelling. - Await ortho recs for splint and eventual casting most likely -pain control prn (3) Atrial fibrillation with RVR: - in rapid afib on admission, now converted to SB -received lopressor IV 5 mg x 1,and usual Toprol XL 25 mg PO now - Recently had event monitor which revealed frequent rapid afib with rates into the 140s-170s at times - Xarelto to start after surgery, can continue asa 81 mg - -continue Toprol XL 25mg po bid Cardio consult appreciated -continue tele monitoring post-op (4) COPD (chronic obstructive pulmonary disease): With exacerbation, requiring O2 Diminished air movement throughout -add on scheduled Duonebs -continue O2 to keep POx 88-92% - Currently smoking 1 ppd x 51 years. -continue nicotine patch (5) Abnormal ECG: Anterolat ST depressions with rapid Afib -trop mildly elevated, no chest pain Repeat ECG today now sinus rohan, no ischemic changes -discussed with Cardiology -check ECHO (6) CAD (coronary artery disease): With a h/o inferior wall [place] and RANJAN to the RCA in 11/[address] depression on admission ECG in setting of Rapid Afib -trop mildly elevated 0.131 but likely demand ischemia -no chest pain now or on admission -Continue ASA 81 mg, continue Imdur, metoprolol, simvastatin -hold lisinopril for hypotension (7) Demand ischemia of myocardium: as above, trop mildly elevated, due to rapid Afib (8) Acute respiratory failure with hypoxia: secondary to COPD exacerbation as above -wean off supplemental O2 as able to (9) Vitamin D deficiency: Vit D level only 7 -add on Vit D 1000 units po qAM (10) Psoriasis: Pt with diffuse macular rash with excoriations. He tells me he has eczema based on biopsy by [facility], NOT psoriasis No current treatment -suspect possible Staph infection -is getting Clinda for preop abx and would refer to DERM after discharge (11) Hypercholesterolemia: -Continue simvastatin 40 mg HS (12) Hypertension: -Medications as above, BP elevated, monitor, likely due to pain (13) DVT prophylaxis: -Abdirahman on left leg, hold chemical ppx in the setting of likely surgery and then will add Xarelto when ok with Irtho CODE STATUS: Full Disposition: continue tele monitoring Admission and Anticipated Discharge Date Admission Date: June 01, 2019 Subjective Feeling SOB at times, is an active heavy smoker and has COPD. Has not received any albuterol since admission. Is on O2. No chest pain now or upon admission. History reviewed and discussed case with Dr. Dinero of Cardiology Having a lot of pain in his right hip and some in right wrist. Some more minor pain in right shoulder Tele with rapid Afib and now in sinus bradycardia Review of Systems Review of Systems: All systems reviewed & are unremarkable except as noted in HPI & below Physical Exam Constitutional: WD/WN, vitals as above Eyes: + anicteric sclerae ENMT: external ear and nose normal, oropharynx normal Neck: trachea midline, no thyromegaly Respiratory: normal respiratory effort; no labored breathing Auscultation: + diminished lung sounds (throughout); no crackles, no rhonchi and no wheezes Cardiovascular: RRR, no murmur, no edema Chest (Breasts): Chest: normal inspection of chest Gastrointestinal (Abdomen): normal bowel sounds, soft, nontender, no hepatosplenomegaly Musculoskeletal: Extremities: + extremities abnormal to inspection (RLE shortened and externally rotated, distally NVI), no cyanosis and no clubbing Skin: + lesion (inumerable 0.5-1.0 cm circular macular lesions and excoriations all over ) Neurologic: moves all extremities and awake; no focal motor deficits Psychiatric: A+Ox3, euthymic affect Lymphatic: no lymphedema Results & Data ([facility]) Vital Signs (Past 12 Hours) Vital Signs Temp Pulse Pulse Resp BP Pulse Ox 06/02/19 12:00 36.5 C 75 20 91/59 L 95 06/02/19 09:00 54 L 122/70 06/02/19 07:36 72 06/02/19 06:46 37.3 C 74 20 93/59 L 92 06/02/19 03:13 37.3 C 63 20 93/60 L 96 Laboratory Results 06/02/19 06/02/19 06/02/19 Range/Units 10:01 05:18 05:18 WBC 15.69 H (4.8-10.8) K/uL RBC 4.83 (4.7-6.1) M/uL Hgb 12.8 L (14.0-18.0) g/dL Hct 39.8 L (42-52) % MCV 82.4 (80-100) fL MCH 26.5 (25-34) pg MCHC 32.2 (32-36) g/dL RDW Std Deviation 48.4 H (36.4-46.3) fL RDW Coeff of Ike 16.0 H (11.5-14.5) % Plt Count 254 (130-400) K/uL MPV 9.5 (7.4-10.4) fL Immature Gran % (Auto) % Neut % (Auto) % Lymph % (Auto) % Dixon % (Auto) % Eos % (Auto) % Baso % (Auto) % Immature Gran # (Auto) (0.00-0.02) K/uL Neut # (Auto) (1.4-6.5) K/uL Lymph # (Auto) (1.2-3.4) K/uL Dixon # (Auto) (0.11-0.59) K/uL Eos # (Auto) (0-0.5) K/uL Baso # (Auto) (0-0.2) K/uL Absolute Nucleated RBC (0-0) K/uL Nucleated RBC % (auto) % PT (9.0-12.0) Seconds INR (0.9-1.1) APTT (21.0-31.0) Seconds PTT Ratio Sodium 135 L (136-145) mmol/L Potassium 3.7 (3.5-5.1) mmol/L Chloride 98 (98-107) mmol/L Carbon Dioxide 34 H (21-32) mmol/L Anion Gap 4.0 (3-11) BUN 18 (7-18) mg/dl Creatinine 0.96 (0.6-1.4) mg/dl Est Cr Clr Drug Dosing 83.4 ml/min Est GFR ( Amer) 91.8 Est GFR (Non-Af Amer) 79.2 BUN/Creatinine Ratio 18.7 (10-20) Glucose 125 H (70-99) mg/dl Calcium 8.9 (8.5-10.1) mg/dl Troponin I 0.131 H* (0-0.045) ng/ml 25-OH Vitamin D Total (30-100) ng/ml Urine Color Urine Appearance (Clear) Urine pH (4.5-7.5) Ur Specific [place] (1.000-1.030) Urine Protein (Negative) Urine Glucose (UA) (Negative) Urine Ketones (Negative) Urine Blood (Negative) Urine Nitrite (Negative) Urine Bilirubin (Negative) Urine Urobilinogen (Negative) Ur Leukocyte Esterase (Negative) Urine WBC (Auto) (0-5) /hpf Urine RBC (Auto) (0-4) /hpf U Hyaline Cast (Auto) (0-5) /lpf U Epithel Cells (Auto) (0-5) /lpf Urine Bacteria (Auto) (Negative) Blood Type Antibody Screen 06/01/19 06/01/19 06/01/19 Range/Units 20:09 18:55 17:20 WBC (4.8-10.8) K/uL RBC (4.7-6.1) M/uL Hgb (14.0-18.0) g/dL Hct (42-52) % MCV (80-100) fL MCH (25-34) pg MCHC (32-36) g/dL RDW Std Deviation (36.4-46.3) fL RDW Coeff of Ike (11.5-14.5) % Plt Count (130-400) K/uL MPV (7.4-10.4) fL Immature Gran % (Auto) % Neut % (Auto) % Lymph % (Auto) % Dixon % (Auto) % Eos % (Auto) % Baso % (Auto) % Immature Gran # (Auto) (0.00-0.02) K/uL Neut # (Auto) (1.4-6.5) K/uL Lymph # (Auto) (1.2-3.4) K/uL Dixon # (Auto) (0.11-0.59) K/uL Eos # (Auto) (0-0.5) K/uL Baso # (Auto) (0-0.2) K/uL Absolute Nucleated RBC (0-0) K/uL Nucleated RBC % (auto) % PT (9.0-12.0) Seconds INR (0.9-1.1) APTT (21.0-31.0) Seconds PTT Ratio Sodium (136-145) mmol/L Potassium (3.5-5.1) mmol/L Chloride (98-107) mmol/L Carbon Dioxide (21-32) mmol/L Anion Gap (3-11) BUN (7-18) mg/dl Creatinine (0.6-1.4) mg/dl Est Cr Clr Drug Dosing ml/min Est GFR ( Amer) Est GFR (Non-Af Amer) BUN/Creatinine Ratio (10-20) Glucose (70-99) mg/dl Calcium (8.5-10.1) mg/dl Troponin I (0-0.045) ng/ml 25-OH Vitamin D Total 7.3 L (30-100) ng/ml Urine Color Dark Yellow Urine Appearance Cloudy A (Clear) Urine pH 5.5 (4.5-7.5) Ur Specific [place] 1.028 (1.000-1.030) Urine Protein 1+ H (Negative) Urine Glucose (UA) Negative (Negative) Urine Ketones 1+ H (Negative) Urine Blood 2+ H (Negative) Urine Nitrite Negative (Negative) Urine Bilirubin Negative (Negative) Urine Urobilinogen Negative (Negative) Ur Leukocyte Esterase Negative (Negative) Urine WBC (Auto) 1-5 (0-5) /hpf Urine RBC (Auto) >30 H (0-4) /hpf U Hyaline Cast (Auto) 5-10 H (0-5) /lpf U Epithel Cells (Auto) 20-30 H (0-5) /lpf Urine Bacteria (Auto) Negative (Negative) Blood Type O Positive Antibody Screen NEGATIVE 06/01/19 06/01/19 06/01/19 Range/Units 17:20 17:20 17:20 WBC 20.06 H (4.8-10.8) K/uL RBC 5.13 (4.7-6.1) M/uL Hgb 13.5 L (14.0-18.0) g/dL Hct 43.0 (42-52) % MCV 83.8 (80-100) fL MCH 26.3 (25-34) pg MCHC 31.4 L (32-36) g/dL RDW Std Deviation 48.6 H (36.4-46.3) fL RDW Coeff of Ike 15.9 H (11.5-14.5) % Plt Count 265 (130-400) K/uL MPV 9.9 (7.4-10.4) fL Immature Gran % (Auto) 0.3 % Neut % (Auto) 85.7 % Lymph % (Auto) 5.6 % Dixon % (Auto) 7.5 % Eos % (Auto) 0.9 % Baso % (Auto) 0.0 % Immature Gran # (Auto) 0.07 H (0.00-0.02) K/uL Neut # (Auto) 17.16 H (1.4-6.5) K/uL Lymph # (Auto) 1.12 L (1.2-3.4) K/uL Dixon # (Auto) 1.51 H (0.11-0.59) K/uL Eos # (Auto) 0.19 (0-0.5) K/uL Baso # (Auto) 0.01 (0-0.2) K/uL Absolute Nucleated RBC 0.02 H (0-0) K/uL Nucleated RBC % (auto) 0.1 % PT 11.1 (9.0-12.0) Seconds INR 1.1 (0.9-1.1) APTT 26.6 (21.0-31.0) Seconds PTT Ratio 1.0 Sodium 140 (136-145) mmol/L Potassium 3.5 (3.5-5.1) mmol/L Chloride 103 (98-107) mmol/L Carbon Dioxide 34 H (21-32) mmol/L Anion Gap 3.0 (3-11) BUN 17 (7-18) mg/dl Creatinine 0.81 (0.6-1.4) mg/dl Est Cr Clr Drug Dosing 97.0 ml/min Est GFR ( Amer) 103.6 Est GFR (Non-Af Amer) 89.4 BUN/Creatinine Ratio 21.5 H (10-20) Glucose 112 H (70-99) mg/dl Calcium 9.3 (8.5-10.1) mg/dl Troponin I (0-0.045) ng/ml 25-OH Vitamin D Total (30-100) ng/ml Urine Color Urine Appearance (Clear) Urine pH (4.5-7.5) Ur Specific [place] (1.000-1.030) Urine Protein (Negative) Urine Glucose (UA) (Negative) Urine Ketones (Negative) Urine Blood (Negative) Urine Nitrite (Negative) Urine Bilirubin (Negative) Urine Urobilinogen (Negative) Ur Leukocyte Esterase (Negative) Urine WBC (Auto) (0-5) /hpf Urine RBC (Auto) (0-4) /hpf U Hyaline Cast (Auto) (0-5) /lpf U Epithel Cells (Auto) (0-5) /lpf Urine Bacteria (Auto) (Negative) Blood Type Antibody Screen PG Care Time/CCT Total # of Minutes Spent Total Time Spent with Patient: Total time spent is greater than 50% in coordination of care (as documented) at patient's floor/unit and/or counseling patient: Coding Level of Care Code 49826 Subseq Hosp Care Lvl 3 Diagnoses Closed right hip fracture S72.001A Right radial fracture S52.91XA Atrial fibrillation with RVR I48.91 COPD (chronic obstructive pulmonary disease) J44.9 COPD type: unspecified COPD Abnormal ECG R94.31 CAD (coronary artery disease) I25.10 Coronary Disease-Associated Artery/Lesion type: [place] artery [place] vs. transplanted heart: [place] heart Associated angina: without angina Demand ischemia of myocardium I24.8 Acute respiratory failure with hypoxia J96.01 Vitamin D deficiency E55.9 Psoriasis L40.9 Hypercholesterolemia E78.00 Hypertension I10 Hypertension type: essential hypertension DVT prophylaxis Z29.9 (1) CAD (coronary artery disease) Coronary Disease-Associated Artery/Lesion type: [place] artery [place] vs. transplanted heart: [place] heart Associated angina: without angina Qualified Code(s): I25.10 - Atherosclerotic heart disease of [place] coronary artery without angina pectoris (2) Hypertension Hypertension type: essential hypertension Qualified Code(s): I10 - Essential (primary) hypertension (3) COPD (chronic obstructive pulmonary disease) COPD type: unspecified COPD Qualified Code(s): J44.9 - Chronic obstructive pulmonary disease, unspecified
--- NOTE | 2019-06-02 13:12 | XCELERA ---
[id number] [id number]
[2019-06-02] MEDS ORDERED: BACITRACIN INJ 50,000 UNIT VIAL ONE (13:55)
[2019-06-02] MEDS ORDERED: ATROPINE SULFATE 0.1 MG/ML 10ML SYR IV PRN (14:02)
[2019-06-02] MEDS ORDERED: ePHEDrine sulfate 50 MG/ML AMP IV PRN (14:02)
[2019-06-02] MEDS ORDERED: HYDROmorphone INJ 1 MG/ML SYRINGE IV PRN (14:02)
[2019-06-02] MEDS ORDERED: ONDANSETRON INJ 2 MG/ML 2 ML VIAL IV PRN (14:02)
[2019-06-02] MEDS ORDERED: fentaNYL citrate 100 MCG/2 ML VIAL IV PRN (14:02)
--- NOTE | 2019-06-02 14:04 | Anesthesiology Consultation ---
Date of Service June 02, 2019 Assessment & Plan (1) Encounter for pre-operative examination: Chart Review Chart Review: Acceptable Risk for Surgery and Patient NOT seen in Pre Admission Testing Consults Requested none History Surgery Operation Date: 06/02/19 08:50 Proposed Procedures p Right Total Hip Arthroplasty - Marcus Haines MD Height/Weight Height: 6 ft 4 in Weight: 83.5 kg Allergies Allergy/AdvReac Type Severity Reaction Status Date / Time Penicillins Allergy Unknown ` Verified 06/01/19 18:11 Medications Home Medications Medication Instructions Recorded Confirmed Last Taken Symbicort 2 puff INHALATION BID PRN 12/27/17 06/01/19 06/01/19 aspirin [Aspir-81] 81 mg PO QAM 12/27/17 06/01/19 06/01/19 isosorbide mononitrate 30 mg PO QAM 12/27/17 06/01/19 06/01/19 lisinopril 20 mg PO QAM 12/27/17 06/01/19 06/01/19 metoprolol succinate 25 mg PO BID 12/27/17 06/01/19 06/01/19 simvastatin 40 mg PO HS 12/27/17 06/01/19 05/31/19 amiodarone 200 mg tablet 200 mg PO BID #60 tab 06/01/19 06/01/19 Unknown rivaroxaban 20 mg tablet 20 mg PO DAILY #90 tab 06/01/19 06/01/19 Unknown Active Medications Generic Name Dose Route Start Last Admin Trade Name Freq PRN Reason Stop Dose Admin Acetaminophen 1,000 mg 06/01/19 22:00 06/02/19 14:05 Tylenol PO 07/01/19 21:59 Not Given Q8 RAMON Amiodarone HCl 200 mg 06/01/19 21:00 06/02/19 09:02 Cordarone PO 07/01/19 20:59 200 mg BID RAMON Administration Aspirin 81 mg 06/02/19 09:00 06/02/19 08:19 Ecotrin Ectab PO 07/02/19 08:59 Not Given QAM RAMON Bisacodyl 5 mg 06/02/19 09:00 06/02/19 09:03 Dulcolax PO 07/02/19 08:59 5 mg DAILY RAMON Administration Fluticasone/Vilanterol 1 puffs 06/02/19 09:00 06/02/19 09:05 Breo Ellipta 100/25 Mcg Inh INH 07/02/19 08:59 1 puffs DAILY RAMON Administration Clindamycin Phosphate 900 mg/ 56 mls @ 112 mls/hr 06/02/19 06:00 06/02/19 06:45 Dextrose IV 06/02/19 18:00 Infused PREOP RAMON Infusion Isosorbide Mononitrate 30 mg 06/02/19 09:00 06/02/19 09:02 Imdur Extended Rel PO 07/02/19 08:59 30 mg QAM RAMON Administration Lisinopril 20 mg 06/02/19 09:00 06/02/19 08:21 Zestril PO 07/02/19 08:59 Not Given QAM RAMON Metoprolol Succinate 25 mg 06/01/19 19:00 06/02/19 10:04 Toprol Xl PO 07/01/19 18:59 25 mg BID RAMON Administration Miscellaneous 1 ea 06/02/19 08:59 06/02/19 08:20 Remove Nicoderm Patch N/A 07/02/19 08:58 Not Given DAILY@0859 RAMON Nicotine 21 mg 06/01/19 21:00 06/02/19 09:03 Nicoderm Cq TD 07/01/19 20:59 Not Given QAM RAMON Oxycodone HCl 5 mg 06/01/19 19:53 06/02/19 06:15 Roxicodone Immediate Rel PO 06/15/19 19:52 5 mg Q4H PRN Administration MODERATE Pain (Scale 4,5,6) Senna/Docusate Sodium 2 tab 06/01/19 21:00 06/01/19 21:32 Senokot S PO 07/01/19 20:59 2 tab HS RAMON Administration Simvastatin 40 mg 06/01/19 21:00 06/01/19 21:33 Zocor PO 07/01/19 20:59 40 mg HS RAMON Administration NPO Date Last Intake of Fluids: 06/01/19 Time Last Intake of Fluids: 23:55 Last Intake of Fluids Comment: sip of water 0900 w/meds Date Last Intake of Solids: 06/01/19 Time Last Intake of Solids: 21:00 Past Medical History Medical History Abscess (Acute) CAD (coronary artery disease) (Chronic) COPD (chronic obstructive pulmonary disease) (Chronic) Diverticulitis (Acute) Dyslipidemia (Chronic) History of left heart catheterization (Resolved) Hypertension (Chronic) Psoriasis (Chronic) Vitamin D deficiency Hospitalist progress note: (3) Atrial fibrillation with RVR: - in rapid afib on admission, now converted to SB -received lopressor IV 5 mg x 1,and usual Toprol XL 25 mg PO now - Recently had event monitor which revealed frequent rapid afib with rates into the 140s-170s at times - Xarelto to start after surgery, can continue asa 81 mg - -continue Toprol XL 25mg po bid Cardio consult appreciated -continue tele monitoring post-op (4) COPD (chronic obstructive pulmonary disease): With exacerbation, requiring O2 Diminished air movement throughout -add on scheduled Duonebs -continue O2 to keep POx 88-92% - Currently smoking 1 ppd x 51 years. -continue nicotine patch (5) Abnormal ECG: Anterolat ST depressions with rapid Afib -trop mildly elevated, no chest pain Repeat ECG today now sinus rohan, no ischemic changes -discussed with Cardiology -check ECHO (6) CAD (coronary artery disease): With a h/o inferior wall [place] and RANJAN to the RCA in 11/[address] depression on admission ECG in setting of Rapid Afib -trop mildly elevated 0.131 but likely demand ischemia -no chest pain now or on admission -Continue ASA 81 mg, continue Imdur, metoprolol, simvastatin -hold lisinopril for hypotension (7) Demand ischemia of myocardium: as above, trop mildly elevated, due to rapid Afib (8) Acute respiratory failure with hypoxia: secondary to COPD exacerbation as above -wean off supplemental O2 as able to Exercise / Class Metabolic Activity II 4-5 Yardwork/Stairs/Walk up hill Past Family History Family History Father Myocardial infarction Past Surgical History Surgical History Stented coronary artery (Resolved) right knee surgery Past Anesthesia History No Hx of Anesthesia Complications History of PONV No Hx of PONV and No Hx of Motion Sickness Social History Smoking Status: Never smoker tobacco type: cigarettes Smoking cigarettes per day: 20 Do You Dip or Chew Tobacco: No Hx Alcohol Use: No alcohol intake frequency: holidays/special occasions only Hx Substance Use: No Physical Exam Vital Signs Last Vital Signs Temp 37.1 C 06/02/19 13:35 Pulse 60 06/02/19 13:35 Resp 22 06/02/19 13:35 BP 105/60 06/02/19 13:35 Pulse Ox 91 06/02/19 13:35 Testing Laboratory Results 06/02/19 05:18 06/02/19 05:18 PT 11.1 Seconds (9.0-12.0) 06/01/19 17:20 INR 1.1 (0.9-1.1) 06/01/19 17:20 APTT 26.6 Seconds (21.0-31.0) 06/01/19 17:20 Urine Color Dark Yellow 06/01/19 18:55 Urine Appearance Cloudy (Clear) A 06/01/19 18:55 Urine pH 5.5 (4.5-7.5) 06/01/19 18:55 Ur Specific [place] 1.028 (1.000-1.030) 06/01/19 18:55 Urine Protein 1+ (Negative) H 06/01/19 18:55 Urine Glucose (UA) Negative (Negative) 06/01/19 18:55 Urine Ketones 1+ (Negative) H 06/01/19 18:55 Urine Nitrite Negative (Negative) 06/01/19 18:55 Ur Leukocyte Esterase Negative (Negative) 06/01/19 18:55 Urine WBC (Auto) 1-5 /hpf (0-5) 06/01/19 18:55 Urine RBC (Auto) >30 /hpf (0-4) H 06/01/19 18:55 U Hyaline Cast (Auto) 5-10 /lpf (0-5) H 06/01/19 18:55 U Epithel Cells (Auto) 20-30 /lpf (0-5) H 06/01/19 18:55 Urine Bacteria (Auto) Negative (Negative) 06/01/19 18:55 Blood Type O Positive 06/01/19 17:20 Antibody Screen NEGATIVE 06/01/19 17:20 Electrocardiogram Date: 06/02/19 Findings: + SB @ (56) Sinus bradycardia with Premature supraventricular complexes Otherwise normal ECG When compared with ECG of 01-JUN-2019 18:15, (unconfirmed) Sinus rhythm has replaced Atrial fibrillation Vent. rate has decreased BY [address] no longer depressed in Inferior leads ST no longer depressed in Anterolateral leads T wave inversion no longer evident in Inferior leads T wave inversion no longer evident in Lateral leads Chest X-Ray Date: 06/01/19 XR chest 1V portable CLINICAL HISTORY: Right hip pain. COMPARISON STUDY: Chest radiograph November 21, 2009. FINDINGS: There is underlying emphysema. Cardiomediastinal silhouette is unremarkable. There is no pneumothorax or pleural effusion. No consolidation to suggest pneumonia. Mild interstitial prominence. IMPRESSION: 1. No pneumothorax. 2. Subtle interstitial thickening which could reflect mild pulmonary edema camacho perimposed upon emphysema. Echocardiogram Date: 06/02/19 Valvular Disease: + LV systolic function is normal. No RWMA. Mild LVH. EF 55-60%, AT LEAST MODERATE AORTIC STENOSIS.
[2019-06-02] MEDS ORDERED: BUPIVACAINE/EPINEPHRINE 0.5% MPF 1:200,000 10 ML VIAL ONE ×2 (14:05→14:10)
[2019-06-02] MEDS ORDERED: PROPOFOL IV EMULSION 10 MG/ML 20 ML VIAL IV ONE (14:13)
[2019-06-02] MEDS ORDERED: ROCURONIUM BROMIDE 10 MG/ML 5 ML VIAL ONE (14:13)
[2019-06-02] MEDS ORDERED: LIDOCAINE HCL 2% 2 ML VIAL/AMP(20MG/ML) INFIL ONE (14:13)
[2019-06-02] MEDS ORDERED: MIDAZOLAM HCL 1 MG/ML 2ML VIAL ONE (14:14)
[2019-06-02] MEDS ORDERED: fentaNYL citrate 100 MCG/2 ML VIAL ONE ×2 (14:14)
[2019-06-02] MEDS ORDERED: HYDROmorphone INJ 2 MG/ML SYR/VIAL ONE (14:14)
[2019-06-02] MEDS ORDERED: KETAMINE HCL INJ 50 MG/ML 10 ML VIAL ONE (14:14)
[2019-06-02] MEDS ORDERED: CEFAZOLIN 2000MG 2,000 MG/15 ML SYR IV ONE (14:18)
[2019-06-02] MEDS ORDERED: CEFAZOLIN 2,000 MG/15 ML IV PUSH IV ONE (14:21)
[2019-06-02] MEDS ORDERED: ALBUT/IPRATROP 3MG/0.5MG NEB 3 ML VIAL INH PRN (14:29)
[2019-06-02] MEDS ORDERED: VANCOMYCIN HCL 1000MG/20ML VIAL ONE (14:41)
--- NOTE | 2019-06-02 15:05 | Electrocardiogram Report ---
Test Reason : Blood Pressure : / mmHG Vent. Rate : 056 BPM Atrial Rate : 056 BPM P-R Int : 160 ms QRS Dur : 108 ms QT Int : 470 ms P-R-T Axes : 075 056 079 degrees QTc Int : 453 ms Sinus bradycardia with Premature supraventricular complexes Otherwise normal ECG When compared with ECG of 01-JUN-2019 18:15, (unconfirmed) Sinus rhythm has replaced Atrial fibrillation Vent. rate has decreased BY [address] no longer depressed in Inferior leads ST no longer depressed in Anterolateral leads T wave inversion no longer evident in Inferior leads Confirmed by Brett Mejia ([id number]) on 06/02/2019 3:04:47 PM Referred By: REFERRED SELF Confirmed By:Brett Mejia
[2019-06-02] MEDS: ALBUT/IPRATROP 3MG/0.5MG NEB 3 ML VIAL NEB SCH ×2 (15:08→20:07)
--- NOTE | 2019-06-02 15:11 | Cardiology Progress Note ---
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 Coronary artery disease has been quiescent on medical management. (2) Hypertension: Adequate control on current regimen. There is evidence of mild LVH on his current echocardiogram. (3) Hypercholesterolemia: Continue simvastatin. (4) Aortic stenosis: Echocardiogram today notes at least moderate aortic stenosis. Doppler study of the aortic valve was inadequate. (5) PAF (paroxysmal atrial fibrillation): The patient recently finished a 30 day event monitor which noted daily episodes of atrial fibrillation. He was seen in the office yesterday and started on amiodarone and Xarelto. (6) Preoperative cardiovascular examination: Acceptable cardiac risk for orthopedic surgery without further cardiac testing. Admission and Anticipated Discharge Date Admission Date: June 01, 2019 Subjective The patient is resting comfortably in bed without complaints of chest pain, dyspnea, or palpitations. The patient was just seen in the office yesterday. On his return home, the patient fell fracturing his right hip. He will undergo surgical repair today. Physical Exam Physical Exam: In general this is a well-developed well-nourished white male in no acute distress. HEENT exam is negative. Neck reveals normal carotid upstrokes without bruits. No JVD. There is no thyromegaly. Cardiovascular exam reveals a regular rhythm with a normal S1 and S2. A 2/6 basal systolic ejection murmur is noted.. Lungs are clear without rales, rhonchi, or wheezes. Abdomen is soft without bruits. Extremities reveal intact radial artery and posterior tibial pulses bilaterally. There is no peripheral edema. Results & Data ([facility]) Vital Signs (Past 12 Hours) Vital Signs Temp Pulse Pulse Resp BP Pulse Ox 06/02/19 13:35 37.1 C 60 22 105/60 91 06/02/19 12:56 68 20 92 06/02/19 12:00 36.5 C 75 20 91/59 L 95 06/02/19 09:00 54 L 122/70 06/02/19 07:36 72 06/02/19 06:46 37.3 C 74 20 93/59 L 92 06/02/19 03:13 37.3 C 63 20 93/60 L 96 Laboratory Results CBC notes a hemoglobin of 12.8, hematocrit 39.8, white count 15.6, platelet count of [id number]. Electrolytes notes a sodium of 135, potassium 3.7, chloride 98, bicarb 34, BUN 18, creatinine 0.96, a glucose of 125. Troponin I level was 0.131. Diagnostic Findings Initial EKG noted atrial fibrillation with a rapid ventricular response. There is an old inferior myocardial infarction pattern and a market anterolateral ST abnormality. Follow-up study noted sinus rhythm PG Care Time/CCT Total # of Minutes Spent Total Time Spent with Patient: Total time spent is greater than 50% in coordination of care (as documented) at patient's floor/unit and/or counseling patient: Coding Level of Care Code 89407 Subseq Hosp Care Lvl 3 Diagnoses CAD (coronary artery disease) I25.10 Associated angina: without angina Coronary Disease-Associated Artery/Lesion type: [place] artery [place] vs. transplanted heart: [place] heart Hypertension I10 Hypertension type: essential hypertension Hypercholesterolemia E78.00 Aortic stenosis I35.0 PAF (paroxysmal atrial fibrillation) I48.0 Preoperative cardiovascular examination Z01.810 (1) CAD (coronary artery disease) Associated angina: without angina Coronary Disease-Associated Artery/Lesion type: [place] artery [place] vs. transplanted heart: [place] heart Qualified Code(s): I25.10 - Atherosclerotic heart disease of [place] coronary artery without angina pectoris (2) Hypertension Hypertension type: essential hypertension Qualified Code(s): I10 - Essential (primary) hypertension
[2019-06-02] MEDS ORDERED: ePHEDrine sulfate 50 MG/ML AMP ONE (16:04)
[2019-06-02] MEDS ORDERED: SODIUM CHLORIDE 0.9% INJ 10 ML VIAL ONE (16:04)
[2019-06-02] MEDS ORDERED: DEXAMETHASONE SOD INJ 4 MG/ML VIAL ONE (16:04)
[2019-06-02] MEDS ORDERED: ONDANSETRON INJ 2 MG/ML 2 ML VIAL ONE (16:04)
[2019-06-02] MEDS ORDERED: PHENYLEPHRINE 100MCG/ML 5ML SYR ONE (16:04)
[2019-06-02] MEDS: BUPIVACAINE/EPINEPHRINE 0.5% MPF 1:200,000 10 ML VIAL ONE ×2 (16:09→16:14)
--- NOTE | 2019-06-02 16:41 | Post Operative Brief Note ---
PG Immediate Post Op with CF Date of Surgery June 02, 2019 Pre & Post Diagnosis Operation Date: 06/02/19 08:50 Pre-Op Diagnosis: Right hip fracture, Right distal radius fracture Post-Op Diagnosis: Right hip fracture, Right distal radius fracture I identified the patient and participated in the time-out.: Yes Procedure Operation Date: 06/02/19 08:50 Actual Procedures p Right Total Hip Arthroplasty and Casting of Right distal radius fracture(Right) - Marcus Haines MD Surgeon Marcus Haines MD Territory Representative Elisha, TATYANA Estimated Blood Loss 200 Findings Consistent with Post-Op Diagnosis Fluids 1300 cc Specimens Specimen Description: A: Right Femoral Head Anesthesia Type General Complications none Disposition Accompanied Patient To Recovery: No Disposition: Recovery Room
--- NOTE | 2019-06-02 17:24 | XRay Report ---
XR hip RT min 2V CLINICAL HISTORY: 73 years-old Male presenting with Post-Operative implant position. TECHNIQUE: Frontal and crosstable lateral views of the right hip were obtained. COMPARISON: 06/01/2019. FINDINGS: There has been interval total right hip arthroplasty for the transcervical right femoral neck fractur e. No malalignment. No periprosthetic fracture. Overlying skin edie and soft tissue emphysema note d. Visualized portion of the bony pelvis intact apart from postsurgical change. IMPRESSION: Expected postsurgical appearance status post total right hip arthroplasty. ACT 112: Negative or not required by law. Electronically signed by: Miguel Ellison M.D. 06/02/2019 5:23 PM
--- NOTE | 2019-06-02 17:26 | Operative Report ---
Post Operative Report Pre & Post Diagnosis Operation Date: 06/02/19 08:50 Pre-Op Diagnosis: Right displaced femoral neck fracture, Right distal radius fracture Post-Op Diagnosis: Right displaced femoral neck fracture, Right distal radius fracture I identified the patient and participated in the time-out.: Yes Procedure Operation Date: 06/02/19 08:50 Actual Procedures p Right Total Hip Arthroplasty and Casting of Right distal radius fracture(Right) - Marcus Haines MD Surgeon Marcus Haines MD Money Examiner Elisha, PAC Estimated Blood Loss 200 Findings Consistent with Post-Op Diagnosis Fluids 1300 cc Specimens Right femoral head sent for pathology. Drains None. Anesthesia Type General Complications none Disposition Accompanied Patient To Recovery: No Disposition: Recovery Room Indications Patient is a 73-year-old gentleman with multiple medical comorbidities who sustained a fall yesterday. He injured his right hip and his right wrist. Of note, he has been recently diagnosed with atrial fibrillation. He was mid to the emergency room, medically optimized, and indicated for surgical treatment. We discussed in depth the treatment of his hip fracture and the he is elected to proceed with total hip arthroplasty as he is very independent ambulator and fairly active gentleman. His wrist fracture was nondisplaced. Description of Procedure Operative implants consisted of: 1. Biomet G7 size 56 mm acetabular shell. 2. Highly cross-linked polyethylene liner with a 56 mm outer diameter and 40 mm inner diameter. 3. 6.5 cancellus acetabular screws 1 of 35 mm length and 130 mm length. 4. [place] eliminator. 5. Peng size 5 [place] cemented high offset femoral stem. 6. +5/40 mm metal articular ball. Patient taken to the operating room identified placed on the operating table supine position protectors were properly padded. IV antibiotics were tried by anesthesia team. A general anesthetic was implemented. The patient was then placed in the left lateral decubitus position. An axillary roll was placed. A Stulberg hip positioner was used for positioning. The right hip and leg were then scrubbed with Hibiclens and then prepped with ChloraPrep and draped in the usual sterile fashion. A posterior lateral approach of the right hip was then performed to a curvilinear incision centered over the greater trochanter. Sharp lysis got through subcutaneous tissue down to level the IT band gluteal fascia with the IT band gluteal fascia were then incised longitudinally in line with the skin incision. The underlying greater bursa was excised. Piriformis and external rotators and the posterior capsule were then released in the posterior aspect of the hip joint as a single layer. Great care was taken throughout the procedure to protect the sciatic nerve at all times. Hip was then internally rotated. Femoral neck osteotomy cut was made just below the fracture site. The femoral neck was removed and sent for pathology. The femur was retracted anteriorly. The femoral head was removed and this was sent for pathology as well. The acetabulum labrum was excised. The pulmonary fat was excised. Sequential reaming the acetabular was then performed begin with size 47 and progressing up to a 55. Then trialed with a 55 trial and it was still pretty tight so I did reamed with a 56. A 56 mm Biomet G7 acetabular shell was then placed in about 40 degrees lateral opening and 20 degrees of anteversion. It was fixed with two 6.5 cancellus acetabular screws. A trial liner was placed. Attention drawn the femur. The proximal femur was entered with a cookie-cutter followed by canal finder and lateralizing reamer. I then broached beginning with the size 1 and progressing up to 5. Got good fit with a 5. We then trialed the hip and the high offset stem fit most appropriately. Create re-created the leg lengths and soft tissue tension appropriately and the hip was fully stable in full extension external rotation and internal rotation to [address] I elected to place these implants. We elected to maximize his head size to him in order to maximize his stability. All trial implants were removed. An apex hole limited was placed but highly cross-link polyethylene liner was placed. A large cement restrictor was then placed down the canal. A double batch [place] G cement was mixed. I did add an additional gram of vancomycin as he has a terrible extensive skin condition throughout his body to decrease the risk of infection. The canal was then injected with the cement and a [place] size 5 high offset femoral stem was placed. All extraneous cement was removed. We held this until cement hardened. A +5/40 mm metal articular ball was then placed and hip was located once again found to be stable. Attention turned toward closing. The wound was irrigated extensively. I did inject locally with 50 cc of half percent Marcaine with epinephrine. Posterior capsule and external rotators were repaired as a single layer through the drill holes in the posterior trochanter with #2 Tycron suture. The IT band gluteal fascia then closed with #1 PDS suture in a running fashion subcutaneous tissue then closed with 2 layers the deep layer #1 Vicryl suture and subcutaneous tissues with 2-0 Dexon suture in a buried interrupted fashion. Skin was then closed with skin edie. The leg was then cleaned and dried a sterile dressing composed of Xeroform, 4 x 4's, sterile ABD pad and foam tape was applied. The patient was then placed back on the transport cart but Under general anesthesia while we placed his cast. The splint was removed from the right arm. A right arm short arm fiberglass cast was well molded to the wrist in neutral position and placed. Once this was set and molded the patient was then brought out of general anesthesia and transferred to the recovery room in stable condition. The patient tolerated procedure well and there were no complications. I attest to the content of the Intraoperative Record and any orders documented therein. Any exceptions are noted below.
--- NOTE | 2019-06-02 17:53 | Anesthesiology Progress Note ---
Date of Service June 02, 2019 Anesthesia Post Procedure Vital Signs Vital Signs: Temp Pulse Pulse Resp BP BP Pulse Ox 06/02/19 17:45 62 14 104/62 95 06/02/19 17:41 59 L 16 95 06/02/19 17:35 57 L 10 L 97/61 L 96 06/02/19 17:25 59 L 13 100/63 92 06/02/19 17:15 63 13 84/62 L 92 06/02/19 17:05 57 L 11 L 93/53 L 92 06/02/19 16:56 36.3 C L 57 L 10 L 102/53 L 96 06/02/19 13:35 37.1 C 60 22 105/60 91 06/02/19 12:56 68 20 92 06/02/19 12:00 36.5 C 75 20 91/59 L 95 06/02/19 09:00 54 L 122/70 06/02/19 07:36 72 06/02/19 06:46 37.3 C 74 20 93/59 L 92 06/02/19 03:13 37.3 C 63 20 93/60 L 96 06/01/19 22:42 36.5 C 94 H 18 117/77 95 06/01/19 21:25 116 H 06/01/19 19:56 36.6 C 96 H 18 162/91 H 96 06/01/19 19:29 105 H 20 126/80 92 06/01/19 19:16 134 H 19 125/90 93 06/01/19 19:14 121 H 125/90 06/01/19 19:10 115 H 20 132/97 94 06/01/19 19:00 124 H 17 132/97 91 06/01/19 18:31 141 H 16 165/87 H 90 Pain Intensity Right Hip: Pain Intensity: 0 Transfer of Care Handoff Completed per policy Notes Mental Status: alert / awake / arousable and participated in evaluation Patient Amnestic to Procedure: Yes Nausea / Vomiting: adequately controlled Pain: adequately controlled Airway Patency, RR, SpO2: stable & adequate BP & HR: stable & adequate Hydration State: stable & adequate Anesthetic Complications: no major complications apparent
[2019-06-02] MEDS ORDERED: NALOXONE HCL 0.4 MG/1 ML VIAL/CARP IV PRN (18:19)
[2019-06-02] MEDS: SIMVASTATIN 40 MG TAB PO SCH (21:36)
[2019-06-02] MEDS: DOCUSATE SODIUM/SENNA 50/8.6MG TAB PO SCH (21:38)
[2019-06-03] MEDS: ACETAMINOPHEN 500 MG TAB PO SCH ×3 (05:45→22:05)
[2019-06-03] MEDS: ALBUT/IPRATROP 3MG/0.5MG NEB 3 ML VIAL NEB SCH ×2 (06:46→11:39)
--- NOTE | 2019-06-03 07:36 | Anesthesiology Progress Note ---
Date of Service June 03, 2019 Anesthesia Post Procedure Vital Signs Vital Signs: Temp Pulse Pulse Resp BP Pulse Ox Pulse Ox 06/03/19 06:49 78 18 96 06/03/19 04:00 95 06/03/19 03:00 36.6 C 60 19 98/58 L 95 06/02/19 23:54 36.4 C L 58 L 18 105/58 L 98 06/02/19 22:19 54 L 06/02/19 20:16 36.3 C L 53 L 12 105/62 99 06/02/19 20:15 36.3 C L 54 L 14 100/63 94 06/02/19 20:07 54 L 16 94 06/02/19 19:53 97 06/02/19 19:45 36.2 C L 56 L 13 94/51 L 95 06/02/19 19:15 36.2 C L 61 15 94/58 L 96 06/02/19 18:51 53 L 06/02/19 18:21 36.6 C 53 L 14 102/59 L 92 06/02/19 18:00 56 L 15 100/62 92 06/02/19 17:55 36.4 C L 58 L 17 102/55 L 92 06/02/19 17:45 62 14 104/62 95 06/02/19 17:41 59 L 16 95 06/02/19 17:35 57 L 10 L 97/61 L 96 06/02/19 17:25 59 L 13 100/63 92 06/02/19 17:15 63 13 84/62 L 92 06/02/19 17:05 57 L 11 L 93/53 L 92 06/02/19 16:56 36.3 C L 57 L 10 L 102/53 L 96 06/02/19 13:35 37.1 C 60 22 105/60 91 06/02/19 12:56 68 20 92 06/02/19 12:00 36.5 C 75 20 91/59 L 95 06/02/19 09:00 54 L 122/70 Pain Intensity Right Hip: Pain Intensity: 0 Notes Mental Status: alert / awake / arousable and participated in evaluation Patient Amnestic to Procedure: Yes Nausea / Vomiting: adequately controlled Pain: adequately controlled Airway Patency, RR, SpO2: stable & adequate BP & HR: stable & adequate Hydration State: stable & adequate Anesthetic Complications: no major complications apparent and Pt Satisfied with anesthetic care
[2019-06-03 07:54] LABS: Basophils # (auto) 0.01 K/uL (0-0.2); Basophils % (auto) 0.1 %; Eosinophils # (auto) 0.98 K/uL (0-0.5); Eosinophils % (auto) 7.7 %; Hematocrit (blood only) 33.8 % (42-52); Hemoglobin 10.5 g/dL (14.0-18.0); Immature Granulocytes # (auto) 0.02 K/uL (0.00-0.02); Immature Granulocytes % (auto) 0.2 %; Lymphocytes % (auto) 9.4 %; Mean Corpuscular Hemoglobin 26.2 pg (25-34); Mean Corpuscular Hgb Conc 31.1 g/dL (32-36); Mean Corpuscular Volume 84.3 fL (80-100); Mean Platelet Volume 9.9 fL (7.4-10.4); Monocytes # (auto) 1.46 K/uL (0.11-0.59); Monocytes % (auto) 11.5 %; Neutrophils # (auto) 9.07 K/uL (1.4-6.5); Neutrophils % (auto) 71.1 %; Platelet Count 204 K/uL (130-400); RDW Coefficient of Variation 16.1 % (11.5-14.5); RDW Standard Deviation 49.6 fL (36.4-46.3); Red Blood Count 4.01 M/uL (4.7-6.1); White Blood Count 12.74 K/uL (4.8-10.8)
[2019-06-03 08:22] LABS: BUN Creatinine Ratio 25.8 (10-20); Calcium 8.7 mg/dl (8.5-10.1); Creatinine Clr Calc Pharmacy 68.5 ml/min; Est GFR (African American) 70.8; Est GFR (Non-African American) 61.1; Potassium 3.5 mmol/L (3.5-5.1)
--- NOTE | 2019-06-03 10:03 | Cardiology Progress Note ---
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 Coronary disease has been quiescent on medical management. (2) Hypertension: Adequate control on current regimen. Mild LVH on his current echocardiogram. (3) Hypercholesterolemia: Continue simvastatin. (4) Aortic stenosis: Echocardiogram notes at least moderate aortic stenosis. Doppler study of the aortic valve was inadequate. (5) PAF (paroxysmal atrial fibrillation): The patient finished a 30 day event monitor which noted daily episodes of atrial fibrillation. He was seen in the office earlier this week and started on amiodarone and Xarelto. (6) Closed fracture of right hip: The patient underwent a right total hip replacement yesterday Dr. Haines. Admission and Anticipated Discharge Date Admission Date: June 01, 2019 Subjective The patient is resting comfortably in bed without complaints of chest pain, dyspnea, or palpitations. Postoperative pain is adequately controlled. Physical Exam Physical Exam: In general this is a well-developed well-nourished white male in no acute distress. HEENT exam is negative. Neck reveals normal carotid upstrokes without bruits. No JVD. There is no thyromegaly. Cardiovascular exam reveals a regular rhythm with a normal S1 and S2. A 2/6 basal systolic ejection murmur is noted.. Lungs are clear without rales, rhonchi, or wheezes. Abdomen is soft without bruits. Extremities reveal intact radial artery and posterior tibial pulses bilaterally. There is no peripheral edema. Results & Data ([facility]) Vital Signs (Past 12 Hours) Vital Signs Temp Pulse Pulse Resp BP Pulse Ox Pulse Ox 06/03/19 08:28 57 L 06/03/19 08:05 36.9 C 66 19 100/52 L 90 06/03/19 06:49 78 18 96 06/03/19 04:00 95 06/03/19 03:00 36.6 C 60 19 98/58 L 95 06/02/19 23:54 36.4 C L 58 L 18 105/58 L 98 06/02/19 22:19 54 L PG Care Time/CCT Total # of Minutes Spent Total Time Spent with Patient: Total time spent is greater than 50% in coordination of care (as documented) at patient's floor/unit and/or counseling patient: Coding Level of Care Code 55850 Subseq Hosp Care Lvl 3 Diagnoses CAD (coronary artery disease) I25.10 Associated angina: without angina Coronary Disease-Associated Artery/Lesion type: [place] artery [place] vs. transplanted heart: [place] heart Hypertension I10 Hypertension type: essential hypertension Hypercholesterolemia E78.00 Aortic stenosis I35.0 PAF (paroxysmal atrial fibrillation) I48.0 Closed fracture of right hip S72.001A Encounter type: initial encounter (1) CAD (coronary artery disease) Associated angina: without angina Coronary Disease-Associated Artery/Lesion type: [place] artery [place] vs. transplanted heart: [place] heart Qualified Code(s): I25.10 - Atherosclerotic heart disease of [place] coronary artery without angina pectoris (2) Hypertension Hypertension type: essential hypertension Qualified Code(s): I10 - Essential (primary) hypertension (3) Closed fracture of right hip Encounter type: initial encounter Qualified Code(s): S72.001A - Fracture of unspecified part of neck of right femur, initial encounter for closed fracture
[2019-06-03] MEDS: FLUTICASONE/VILANTEROL 100/25MCG 14 PUFFS/INHALER INH SCH (10:09)
[2019-06-03] MEDS: AMIODARONE 200 MG TAB PO SCH (10:09)
[2019-06-03] MEDS: CHOLECALCIFEROL 1,000 UNITS 25 MCG TAB PO SCH (10:09)
[2019-06-03] MEDS: bisacodyL 5 MG TABEC PO SCH (10:10)
[2019-06-03] MEDS: ISOSORBIDE MONO EXTENDED REL 30 MG TABCR PO SCH (10:10)
[2019-06-03] MEDS: ASPIRIN 81 MG ECTAB PO SCH (10:11)
[2019-06-03] MEDS: NICOTINE 21 MG/24 HR TDSY TD SCH (10:11)
[2019-06-03] MEDS: OXYCODONE HCL IR 5 MG TAB (IMMEDIATE RELEASE) PO PRN (10:19)
[2019-06-03] MEDS ORDERED: SODIUM CHLORIDE 0.9% 500 ML IV SCH ×2 (12:00→16:30)
[2019-06-03] MEDS: METOPROLOL SUCC 50MG EXT REL TAB PO SCH (13:10)
[2019-06-03] MEDS: lisinopriL 20 MG TAB PO SCH (13:11)
[2019-06-03] MEDS ORDERED: ALBUT/IPRATROP 3MG/0.5MG NEB 3 ML VIAL NEB PRN (14:23)
[2019-06-03] MEDS ORDERED: METOPROLOL TARTRATE 1 MG/ML VIAL IV STA (14:53)
[2019-06-03] MEDS ORDERED: METOPROLOL TARTRATE 1 MG/ML VIAL IV ONE (14:56)
[2019-06-03] MEDS ORDERED: POTASSIUM CHLORIDE 20 MEQ TABCR PO STA (16:28)
--- NOTE | 2019-06-03 16:39 | Hospitalist Progress Note ---
Date of Service June 03, 2019 Assessment & Plan (1) Closed right hip fracture: Secondary to mechanical fall onto his driveway after slipping - Ortho consulted-appreciate management-no status post right hybrid total hip arthroplasty for displaced femoral neck fracture -Continue pain management with Tylenol [id number], Percocet, but will DC IV morphine given low blood pressures -Continue bowel regimen -DVT prophylaxis with Xarelto 10 mg daily x3 days starting 06/04, then orthoped ics says it would be safe to increase to the full anticoagulation dose for his A. fib as below -Hemoglobin did drop somewhat since admission from 12.8-10.5-acute blood loss anemia secondary to hip fracture and hip surgery -Follow CBC in the morning PT/OT evaluations-orthopedics reports he is allowed to fully weight-bear as tolerated in the right leg (2) Right radial fracture: - Imaging reviewed showing cortical irregularity of the distal radial metaphysis is suggestive of a subtle acute nondisplaced fracture with mild associated soft tissue swelling. -He is now status post casting of a right distal radius fracture -pain control prn as above -Orthopedics recommends he can use his right arm for weightbearing and walker assistance and would probably benefit from a platform walker given his hip fracture as above (3) Atrial fibrillation with RVR: - in rapid afib on admission, then converted to sinus bradycardia prior to surgery on 06/02 -He has now been in rapid atrial fibrillation again since the afternoon of 06/03 again with rates to the 160s-170s -He gets symptomatic with palpitations and left upper extremity pain when his rates are very fast - Recently had event monitor as an outpatient which revealed frequent rapid afib with rates into the 140s-170s at times and was seen by cardiology on the day of admission-recommendation was to start p.o. amiodarone and Xarelto -Was given 2 doses of IV Lopressor today which did slow the rates down somewhat, however his blood pressure has been low at times in the 80s to 90s systolic. He has been unable to receive his metoprolol today by mouth -Discussed with cardiology-we will start amiodarone drip without a bolus given the soft blood pressures -DC p.o. amiodarone for now -Convert Toprol-XL to metoprolol tartrate for now in case has low blood pressures, give only if systolic blood pressure greater than 100 Cardio consult appreciated -continue tele monitoring-transitioning to PCU today given the need for amiodarone drip -To start Xarelto 10 mg daily tomorrow as above per orthopedic recommendation and can increase further to the therapeutic 20 mg dose daily 3 days after that to reduce the risk of hematoma with the recent hip surgery -Keep electrolytes replete-we will give potassium chloride 40 mEq p.o. x1 today -Follow BMP, magnesium (4) COPD (chronic obstructive pulmonary disease): With mild exacerbation on admission, requiring O2 Diminished air movement throughout Improved today, no longer short of breath but remains on supplemental O2 -Change scheduled Duonebs to as needed -continue O2 to keep POx 88-92% - Currently smoking 1 ppd x 51 years. -continue nicotine patch (5) Abnormal ECG: Anterolat ST depressions with rapid Afib -trop mildly elevated, no chest pain Repeat ECG the morning after admission then with sinus rohan, no further ST depressions Echocardiogram with mild LVH, at least moderate aortic stenosis, no wall motion abnormalities and preserved LV function (6) CAD (coronary artery disease): With a h/o inferior wall [place] and RANJAN to the RCA in 11/[address] depression on admission ECG in setting of Rapid Afib -trop mildly elevated 0.131 but likely demand ischemia -no chest pain now or on admission -Continue ASA 81 mg -Will hold Imdur now for hypotension -Continue metoprolol but convert to tartrate 25 mg twice daily for now given rapid A. fib and hypotension -Continue simvastatin -Continue to hold lisinopril for hypotension (7) Demand ischemia of myocardium: as above, trop mildly elevated, due to rapid Afib (8) Acute respiratory failure with hypoxia: secondary to COPD exacerbation as above -wean off supplemental O2 as able to (9) Vitamin D deficiency: Vit D level only 7 -add on Vit D 1000 units po qAM (10) Psoriasis: Pt with diffuse macular rash with excoriations. He tells me he has eczema based on biopsy by [facility], NOT psoriasis No current treatment -suspect possible Staph infection -is getting Clinda for preop abx and would refer to DERM after discharge (11) Hypercholesterolemia: -Continue simvastatin 40 mg HS (12) Hypertension: With hypotension postoperatively due to acute blood loss anemia, rapid atrial fibrillation -Hold lisinopril and Imdur -Give metoprolol with hold parameters for rapid atrial fibrillation -Attempting to cardiovert medically with IV amiodarone as above which should help with blood pressures -Give gentle normal saline IV fluid boluses as needed for low blood pressures Continue to monitor blood pressure (13) Aortic stenosis: (14) DVT prophylaxis: -Teds, SCDs, starting Xarelto 10 mg daily on 06/04 CODE STATUS: Full Disposition: continue tele monitoring and transition to PCU for IV amiodarone drip as above PT/OT will continue to work with him daily Referrals have been made to rehab facility Admission and Anticipated Discharge Date Admission Date: June 01, 2019 Anticipated date of discharge: 06/05/19 Subjective Patient reports pain in the hip is much improved since his surgery. He is also having pain in the right wrist and is now casted. He went into rapid atrial fibrillation earlier this afternoon with rates as high as the 170s and he was symptomatic with palpitations and pain down the left arm as he has been in the past with this. He was given IV Lopressor and had improvement of his rates down to the 120s to 130s and had resolution of the left arm pain. Blood pressures however remained quite borderline he was bolused 500 mL's of normal saline on 2 occasions. He denies chest pains. Reports that shortness of breath is improved now on oxygen. Denies abdominal pain or nausea. He is tolerating p.o. No bowel movement yet. He is making urine. I discussed the case with cardiology on 2 occasions today. Decision was then made to put him on IV amiodarone and transfer him to the PCU I also discussed his case with the orthopedic surgeon in regards to his Xarelto dosing. Telemetry with normal sinus rhythm rates in the 50s to 60s followed by rapid atrial fibrillation as above Review of Systems Review of Systems: All systems reviewed & are unremarkable except as noted in HPI & below Physical Exam Constitutional: WD/WN, vitals as above Eyes: + anicteric sclerae ENMT: external ear and nose normal, oropharynx normal Neck: trachea midline, no thyromegaly Respiratory: normal respiratory effort; no labored breathing Auscultation: + diminished lung sounds (throughout); no crackles, no rhonchi and no wheezes Cardiovascular: Rate/Rhythm: + tachycardic and + irregularly irregular Heart Sounds: no murmur Extremities: no edema Chest (Breasts): Chest: normal inspection of chest Gastrointestinal (Abdomen): normal bowel sounds, soft, nontender, no hepatosplenomegaly Musculoskeletal: Extremities: + wrist abnormality Right (Cast in place over right forearm); + extremities abnormal to inspection (Right hip with dressing clean dry and intact, 1+ dorsalis pedis pulses bilaterally, sensation intact distally in the feet), no cyanosis and no clubbing Skin: + lesion (inumerable 0.5-1.0 cm circular macular lesions and excoriations all over ) Neurologic: moves all extremities and awake; no focal motor deficits Psychiatric: A+Ox3, euthymic affect Lymphatic: no lymphedema Results & Data ([facility]) Vital Signs (Past 12 Hours) Vital Signs Temp Pulse Pulse Resp BP BP Pulse Ox 06/03/19 15:02 132 H 06/03/19 13:10 144 H 133/67 06/03/19 12:47 36.6 C 132 H 20 133/67 94 06/03/19 11:53 36.3 C L 70 20 88/52 L 93 06/03/19 11:41 70 18 93 06/03/19 10:14 80 06/03/19 08:28 57 L 06/03/19 08:05 36.9 C 66 19 100/52 L 90 06/03/19 06:49 78 18 96 Laboratory Results 06/03/19 06/03/19 Range/Units 07:07 07:07 WBC 12.74 H (4.8-10.8) K/uL RBC 4.01 L (4.7-6.1) M/uL Hgb 10.5 L (14.0-18.0) g/dL Hct 33.8 L (42-52) % MCV 84.3 (80-100) fL MCH 26.2 (25-34) pg MCHC 31.1 L (32-36) g/dL RDW Std Deviation 49.6 H (36.4-46.3) fL RDW Coeff of [place]ke 16.1 H (11.5-14.5) % Plt Count 204 (130-400) K/uL MPV 9.9 (7.4-10.4) fL Immature Gran % (Auto) 0.2 % Neut % (Auto) 71.1 % Lymph % (Auto) 9.4 % [place] % (Auto) 11.5 % Eos % (Auto) 7.7 % Baso % (Auto) 0.1 % Immature Gran # (Auto) 0.02 (0.00-0.02) K/uL Neut # (Auto) 9.07 H (1.4-6.5) K/uL Lymph # (Auto) 1.20 (1.2-3.4) K/uL [place] # (Auto) 1.46 H (0.11-0.59) K/uL Eos # (Auto) 0.98 H (0-0.5) K/uL Baso # (Auto) 0.01 (0-0.2) K/uL Sodium 134 L (136-145) mmol/L Potassium 3.5 (3.5-5.1) mmol/L Chloride 97 L (98-107) mmol/L Carbon Dioxide 30 (21-32) mmol/L Anion Gap 7.0 (3-11) BUN 31 H D (7-18) mg/dl Creatinine 1.19 (0.6-1.4) mg/dl Est Cr Clr Drug Dosing 68.5 ml/min Est GFR ( Amer) 70.8 Est GFR (Non-Af Amer) 61.1 BUN/Creatinine Ratio 25.8 H (10-20) Glucose 114 H (70-99) mg/dl Calcium 8.7 (8.5-10.1) mg/dl PG Care Time/CCT Total # of Minutes Spent Total Time Spent with Patient: Total time spent is greater than 50% in coordination of care (as documented) at patient's floor/unit and/or counseling patient: Coding Level of Care Code 39144 Subseq Hosp Care Lvl 3 Diagnoses Closed right hip fracture S72.001A Right radial fracture S52.91XA Atrial fibrillation with RVR I48.91 COPD (chronic obstructive pulmonary disease) J44.9 COPD type: unspecified COPD Abnormal ECG R94.31 CAD (coronary artery disease) I25.10 Associated angina: without angina Coronary Disease-Associated Artery/Lesion type: [place] artery [place] vs. transplanted heart: [place] heart Demand ischemia of myocardium I24.8 Acute respiratory failure with hypoxia J96.01 Vitamin D deficiency E55.9 Psoriasis L40.9 Hypercholesterolemia E78.00 Hypertension I10 Hypertension type: essential hypertension Aortic stenosis I35.0 DVT prophylaxis Z29.9 (1) CAD (coronary artery disease) Associated angina: without angina Coronary Disease-Associated Artery/Lesion type: [place] artery [place] vs. transplanted heart: [place] heart Qualified Code(s): I25.10 - Atherosclerotic heart disease of [place] coronary artery without angina pectoris (2) COPD (chronic obstructive pulmonary disease) COPD type: unspecified COPD Qualified Code(s): J44.9 - Chronic obstructive pulmonary disease, unspecified (3) Hypertension Hypertension type: essential hypertension Qualified Code(s): I10 - Essential (primary) hypertension
[2019-06-03] MEDS ORDERED: AMIODARONE / D5W 360 MG/200 ML BAG IV SCH (17:00)
[2019-06-03] MEDS: METOPROLOL TARTRATE 25 MG TAB PO SCH ×2 (18:14→20:25)
--- NOTE | 2019-06-03 19:15 | Progress Note ---
DATE: 06/03/2019 SUBJECTIVE: 73-year-old gentleman postop day 1 from a right hybrid total hip arthroplasty done for fracture as well as casting of a right wrist fracture. He is doing well. He has minimal pain while resting. He says it hurts quite a bit when he has been up and ambulating with some assistance. His wrist is sore but manageable. No other new complaints. He denied any chest pain or shortness of breath on rounds this morning. OBJECTIVE: VITAL SIGNS: Temperature 36.6. Vital signs stable. GENERAL: He is a pleasant elderly male. He is lying in bed, looks pretty comfortable. EXTREMITIES: Examination of the right hip reveals leg lengths to be equal. His dressing is clean, dry and intact. Thigh is soft and supple. He can dorsiflex and plantarflex his foot appropriately. He is neurologically intact. Examination of the wrist reveals short arm cast to be in place. No swelling. His wrist looks well aligned. He is neurologically intact. Reflexes and extends his fingers appropriately. LABORATORY DATA: Hemoglobin is 10.5, hematocrit 33.8. ASSESSMENT: 73-year-old gentleman with new onset atrial fibrillation now postop day 1 from a right hybrid total hip arthroplasty for displaced femoral neck fracture and casting of a right distal radius fracture. Orthopedically seems to be doing well. Pain is reasonably well controlled. Hip is located. He is neurologically intact. PLAN: 1. DVT prophylaxis including thigh-high TEDS, SCDs and he is going to be going on Xarelto. We will start him on a prophylactic dose 24 hours after surgery and then once he is 3 days out I think it is fine to go to full dose. I would really prefer him to stay at the prophylactic dose unless it is really medically necessary for him to be on a higher dose and then we can do that. Certainly this risks him developing a hematoma which could require further surgical intervention which we obviously want to avoid. 2. PT/OT. He can fully weightbear as tolerated in the right leg. He can also use his right arm for weightbearing in walker assistance. Probably benefit from a platform walker. 3. Pain control. Seems to be doing pretty well with current pain regimen. 4. Medical management as per the medical service. Once again for his atrial fibrillation it would be best if he can wait 3 days before putting on a full dose of anticoagulation. If it is absolutely medically necessary to do so beforehand, obviously that would be okay with us, but it risks hematoma formation. 5. Disposition: He will likely need a rehab stay.
[2019-06-03] MEDS ORDERED: SODIUM CHLORIDE 0.9% 1000ML 1,000 ML IV ONE (20:21)
[2019-06-03] MEDS: DOCUSATE SODIUM/SENNA 50/8.6MG TAB PO SCH (20:26)
[2019-06-03] MEDS: SIMVASTATIN 40 MG TAB PO SCH (20:26)
[2019-06-03] MEDS ORDERED: METOPROLOL SUCC 25MG EXT REL TAB PO SCH (21:00)
[2019-06-04] MEDS: AMIODARONE / D5W 360 MG/200 ML BAG IV SCH ×2 (01:27→12:42)
[2019-06-04 05:57] LABS: Basophils # (auto) 0.01 K/uL (0-0.2); Basophils % (auto) 0.1 %; Eosinophils # (auto) 1.04 K/uL (0-0.5); Eosinophils % (auto) 9.3 %; Hemoglobin 10.2 g/dL (14.0-18.0); Immature Granulocytes # (auto) 0.02 K/uL (0.00-0.02); Immature Granulocytes % (auto) 0.2 %; Lymphocytes # (auto) 1.05 K/uL (1.2-3.4); Lymphocytes % (auto) 9.4 %; Mean Corpuscular Hemoglobin 26.3 pg (25-34); Mean Corpuscular Hgb Conc 31.9 g/dL (32-36); Mean Corpuscular Volume 82.5 fL (80-100); Mean Platelet Volume 10.1 fL (7.4-10.4); Monocytes % (auto) 11.7 %; Neutrophils # (auto) 7.73 K/uL (1.4-6.5); Neutrophils % (auto) 69.3 %; Platelet Count 179 K/uL (130-400); RDW Standard Deviation 48.2 fL (36.4-46.3); Red Blood Count 3.88 M/uL (4.7-6.1); White Blood Count 11.15 K/uL (4.8-10.8)
[2019-06-04] MEDS: ACETAMINOPHEN 500 MG TAB PO SCH ×3 (06:07→21:11)
[2019-06-04 06:33] LABS: BUN Creatinine Ratio 25.3 (10-20); Calcium 8.3 mg/dl (8.5-10.1); Creatinine Clr Calc Pharmacy 107.2 ml/min; Est GFR (African American) 106.4; Est GFR (Non-African American) 91.8; Magnesium 1.6 mg/dl (1.8-2.4); Potassium 3.3 mmol/L (3.5-5.1)
[2019-06-04] MEDS: NICOTINE 21 MG/24 HR TDSY TD SCH (08:14)
[2019-06-04] MEDS: ASPIRIN 81 MG ECTAB PO SCH (08:15)
[2019-06-04] MEDS: FLUTICASONE/VILANTEROL 100/25MCG 14 PUFFS/INHALER INH SCH (08:15)
[2019-06-04] MEDS: CHOLECALCIFEROL 1,000 UNITS 25 MCG TAB PO SCH (08:16)
[2019-06-04] MEDS: RIVAROXABAN 10 MG TABLET PO SCH (08:16)
--- NOTE | 2019-06-04 08:21 | Progress Note ---
DATE: 06/04/2019 SUBJECTIVE: A 73-year-old gentleman postop day 2 from right hybrid total hip arthroplasty for femoral neck fracture and casting of a distal radius fracture. He is doing okay. He has been moved to the PCU due to increased heart rate related to his AFib. He is really asymptomatic. Both his hip and wrist hurt him some, but manageable. No new complaints. OBJECTIVE: VITAL SIGNS: Temperature 36.9. Vital signs stable. Heart rate around 100. GENERAL: Reveals a pleasant, middle-aged male. He is sitting on bed, looks pretty comfortable. EXTREMITIES: Examination of the right wrist reveals a short arm cast to be in place. There is no significant swelling. No visible deformity. He can flex and extend his fingers appropriately. Examination of the right hip reveals the leg lengths to be equal. Dressing is clean, dry and intact. Thigh is soft and supple. He is neurologically intact. LABORATORY DATA: Hemoglobin is 10.2. Hematocrit 32.0. White cell count is slightly elevated related to stress. Electrolytes are stable. Potassium a little bit low at 3.3. ASSESSMENT: A 73-year-old gentleman with multiple medical comorbidities with recently diagnosed with atrial fibrillation postop day 2 from right hybrid total hip arthroplasty for fracture and treatment and casting for risk fracture. Orthopedically, he is doing fine. He has had tachycardia now, the PCU for rate control. Seems to be getting better, but is still a little on the tachycardic side. PLAN: From the orthopedic standpoint, he can weightbear as tolerated. Needs to obey hip precautions. We are going to start him on prophylactic dose of Lovenox, I believe it is going to start this morning and we will do that for 2 days. After that, I think he could go to full dose. This is a risk-benefit ratio concerning his recent surgery and bleeding and hematoma formation. Continue other DVT prophylaxis including TEDs and SCDs. He can weightbear as tolerated. Needs to obey hip precautions. Any orthopedic questions can be directed to me at [phone]. From the orthopedic standpoint, he can be discharged to a rehab any time medically stable.
[2019-06-04] MEDS ORDERED: Nursing to Pharmacy Communication ONE (08:23)
[2019-06-04] MEDS: METOPROLOL TARTRATE 25 MG TAB PO SCH ×2 (08:25→21:10)
[2019-06-04] MEDS ORDERED: POTASSIUM CHLORIDE 20 MEQ TABCR PO STA (08:46)
[2019-06-04] MEDS: MAGNESIUM SULFATE / D5W 1 GM/100 ML BAG IV SCH ×2 (09:40→11:20)
--- NOTE | 2019-06-04 11:50 | Cardiology Progress Note ---
Date of Service June 04, 2019 Assessment & Plan (1) CAD (coronary artery disease): He has coronary disease but that does not seem to be an acute issue, he has no symptoms to suggest angina. (2) Hypertension: Adequate control on current regimen. Mild LVH on his current echocardiogram. (3) Hypercholesterolemia: Maintained on simvastatin which he should continue with his coronary artery disease. (4) Aortic stenosis: He has newly discovered aortic stenosis which is at least moderate. His had questions about the disease and prognosis, I did tell her that I could not tell her too much about the valve because it was not well visualized but it is somewhat narrowed and it probably will progress over time and ultimately he may need a valve replacement but certainly not in the near future and this will have to be followed. (5) PAF (paroxysmal atrial fibrillation): He remains in atrial fibrillation with a rapid heart rate, even on intravenous amiodarone. Amiodarone clearly is not working in intravenous form, I am therefore going to discontinue it. We need something for rate control and he was having difficulty with hypotension causing holding of his beta-blockade. This morning he did receive low-dose metoprolol (12.5 mg) which may have helped somewhat with the heart rate but it still remains high. I am going to add digoxin to his regimen because of the hypotension and continue metoprolol 12.5 mg twice a day. He needs to continue on anticoagulation I would increase to full anticoagulation as soon as it is felt safe. (6) Closed fracture of right hip: The is doing well postoperatively, he is on low-dose anticoagulation. When safe from the orthopedic standpoint I would like to increase that to Xarelto 20 mg daily. Admission and Anticipated Discharge Date Admission Date: June 01, 2019 Anticipated date of discharge: 06/05/19 Subjective Patient feels pretty well today, he is discouraged from having to stay here but is not having hip or arm discomfort and is generally not aware of his atrial arrhythmia. He has remained in atrial fibrillation for about 24 hours now, the rate is only moderately well controlled. He is only aware of the rhythm when it is more rapid however. No chest pain to suggest angina. Physical Exam Physical Exam: Constitutional: Alert, cooperative and in no distress. HEENT: Unremarkable Neck: No jugular venous distention, carotid pulses are irregular but otherwise normal and equal bilaterally without bruits. Pulmonary: Clear to auscultation bilaterally. Cardiac: Irregular rapid rhythm with a grade 2/6 crescendo decrescendo murmur at the base, no gallop or rub. Abdomen: Soft, nontender with normal bowel sounds. Extremities: No edema. Distal pulses intact. Neurologic: No focal findings. Gait is steady. Skin: No rash, ecchymoses or petechiae. Results & Data ([facility]) Vital Signs (Past 12 Hours) Vital Signs Temp Pulse Pulse Resp BP Pulse Ox Pulse Ox 06/04/19 11:01 36.8 C 96 H 18 123/66 97 06/04/19 10:30 93 H 98/63 L 06/04/19 09:37 113 H 101/60 06/04/19 08:00 123 H 113/65 06/04/19 07:05 36.9 C 100 H 20 100/63 100 06/04/19 06:15 101 H 93/64 L 93 06/04/19 05:05 109 H 88/58 L 94 06/04/19 04:00 37.0 C 131 H 20 86/62 L 95 93 06/04/19 01:45 119 H Laboratory Results CBC 06/04/19 Range/Units 05:32 WBC 11.15 H (4.8-10.8) K/uL RBC 3.88 L (4.7-6.1) M/uL Hgb 10.2 L (14.0-18.0) g/dL Hct 32.0 L (42-52) % Plt Count 179 (130-400) K/uL Neut # (Auto) 7.73 H (1.4-6.5) K/uL Lymph # (Auto) 1.05 L (1.2-3.4) K/uL [place] # (Auto) 1.30 H (0.11-0.59) K/uL Eos # (Auto) 1.04 H (0-0.5) K/uL Baso # (Auto) 0.01 (0-0.2) K/uL Comprehensive Metabolic Panel 06/04/19 Range/Units 05:32 Sodium 135 L (136-145) mmol/L Potassium 3.3 L (3.5-5.1) mmol/L Chloride 101 (98-107) mmol/L Carbon Dioxide 29 (21-32) mmol/L BUN 19 H (7-18) mg/dl Creatinine 0.76 D (0.6-1.4) mg/dl Glucose 116 H (70-99) mg/dl Calcium 8.3 L (8.5-10.1) mg/dl Intake and Output 06/03/19 06/04/19 06/04/19 22:59 06:59 14:59 Intake Total 1620 / 2587.863 247.863 / 2587.863 100 / 100 Output Total 400 / 625 125 / 625 Balance 1220 / 1962.863 122.863 / 1962.863 100 / 100 Intake: IV 1500 / 2242.863 242.863 / 2242.863 100 / 100 NEXTERONE / D5W 360 mg In 200 242.863 / 242.863 ml @ 0.5 MG/MIN 16.667 mls/hr IV .Q12H RAMON Rx#:[id number] MAGNESIUM SULFATE / D5W 1 gm In 100 / 100 100 ml @ 100 mls/hr IV Q1H RAMON Rx#:[id number] Nss 1000ML 1,000 ml @ 999 mls/ 1000 / 1000 hr IV .Q1H1M ONE Rx#:[id number] Nss 500 ml @ 250 mls/hr IV .Q2H 500 / 500 RAMON Rx#:[id number] Oral 120 / 345 5 / 345 Output: Urine 400 / 625 125 / 625 Other: Weight 86.4 kg Diagnostic Findings Telemetry: Atrial fibrillation and flutter since around 11 AM on June 03, 2019. The rate has improved somewhat, but still remains rapid. This morning he appears to be in atrial flutter with 2-1 AV conduction. PG Care Time/CCT Total # of Minutes Spent Total Time Spent with Patient: Total time spent is greater than 50% in coordination of care (as documented) at patient's floor/unit and/or counseling patient: Coding Level of Care Code 53148 Subseq Hosp Care Lvl 3 Diagnoses CAD (coronary artery disease) I25.10 Coronary Disease-Associated Artery/Lesion type: [place] artery [place] vs. transplanted heart: [place] heart Associated angina: without angina Hypertension I10 Hypertension type: essential hypertension Hypercholesterolemia E78.00 Aortic stenosis I35.0 PAF (paroxysmal atrial fibrillation) I48.0 Closed fracture of right hip S72.001A Encounter type: initial encounter (1) CAD (coronary artery disease) Coronary Disease-Associated Artery/Lesion type: [place] artery [place] vs. transplanted heart: [place] heart Associated angina: without angina Qualified Code(s): I25.10 - Atherosclerotic heart disease of [place] coronary artery without angina pectoris (2) Hypertension Hypertension type: essential hypertension Qualified Code(s): I10 - Essential (primary) hypertension (3) Closed fracture of right hip Encounter type: initial encounter Qualified Code(s): S72.001A - Fracture of unspecified part of neck of right femur, initial encounter for closed fracture
--- NOTE | 2019-06-04 12:00 | Hospitalist Progress Note ---
Date of Service June 04, 2019 Assessment & Plan (1) Closed right hip fracture: Secondary to mechanical fall onto his driveway after slipping Likely osteoporosis with current pathological fracture, R femur and R radius - Ortho consulted-appreciate management-now status post right hybrid total hip arthroplasty for displaced femoral neck fracture on 06/02 -Continue pain management with Tylenol [id number], Percocet prn -Continue bowel regimen -DVT prophylaxis with Xarelto 10 mg daily x3 days starting 06/04, then orthopedics says it would be safe to increase to the full anticoagulation dose for his A. fib as below -Hemoglobin did drop somewhat since admission from 12.8-10.5 on POD1 and now stable-acute blood loss anemia secondary to hip fracture and hip surgery -Follow CBC in the morning PT/OT evaluations-orthopedics reports he is allowed to fully weight-bear as tolerated in the right leg (2) Right radial fracture: - Imaging reviewed showing cortical irregularity of the distal radial metaphysis is suggestive of a subtle acute nondisplaced fracture with mild associated soft tissue swelling. -He is now status post casting of a right distal radius fracture on 06/02 -pain control prn as above -Orthopedics recommends he can use his right arm for weightbearing and walker assistance and would probably benefit from a platform walker given his hip fracture as above (3) Atrial fibrillation with RVR: - in rapid afib on admission, then converted to sinus bradycardia prior to surgery on 06/02 -He has now been in rapid atrial fibrillation again since the afternoon of 06/03 -rates initially in the 160s, now improved but remain 100-130s despite IV amiodarone and IV lopressor, po metoprolol lowd ose -Low BPs limiting use of AV hyacinth blocking agents -He gets symptomatic with palpitations and left upper extremity pain when his rates are very fast - Recently had event monitor as an outpatient which revealed frequent rapid afib with rates into the 140s-170s at times and was seen by cardiology on the day of admission-recommendation was to start p.o. amiodarone and Xarelto Cardio consult appreciated -dc IV amiodarone and load with IV digoxin followed by po digoxin today -continue metoprolol tartrate but lowered dose to 12.5mg po bid due to low BPs -continue tele monitoring -cont Xarelto 10 mg daily as above per orthopedic recommendation and can increase further to the therapeutic 20 mg dose daily 3 days (on 06/07) after that to reduce the risk of hematoma with the recent hip surgery -Keep electrolytes replete- will give potassium chloride 60 mEq p.o. x1 today -Follow BMP, magnesium (4) COPD (chronic obstructive pulmonary disease): With mild exacerbation on admission, requiring O2 Diminished air movement throughout but is now improving -dyspnea improved but remains on supplemental O2 -continue Duonebs as needed -continue O2 to keep POx 88-92% - Currently smoking 1 ppd x 51 years-encouraged cessation -continue nicotine patch (5) Abnormal ECG: Anterolat ST depressions with rapid Afib on admission -trop mildly elevated at 0.131, no chest pain Repeat ECG the morning after admission then with sinus rohan, no further ST depressions Echocardiogram with mild LVH, at least moderate aortic stenosis, no wall motion abnormalities and preserved LV function (6) CAD (coronary artery disease): With a h/o inferior wall [place] and RANJAN to the RCA in 11/[address] depression on admission ECG in setting of Rapid Afib -trop mildly elevated 0.131 but likely demand ischemia -no chest pain now or on admission -Continue ASA 81 mg -Will hold Imdur now for hypotension -Continue metoprolol tartrate 12.5 mg twice daily -Continue simvastatin -Continue to hold lisinopril for hypotension (7) Demand ischemia of myocardium: as above, trop mildly elevated, due to rapid Afib (8) Acute respiratory failure with hypoxia: secondary to COPD exacerbation as above -wean off supplemental O2 as able to (9) Vitamin D deficiency: Vit D level only 7 -started Vit D 1000 units po qAM (10) Psoriasis: Pt with diffuse macular rash with excoriations. He tells me he has eczema based on biopsy by [facility], NOT psoriasis No current treatment -suspect possible Staph infection -is getting Clinda for preop abx and would refer to DERM after discharge (11) Hypercholesterolemia: -Continue simvastatin 40 mg HS (12) Hypertension: With hypotension postoperatively due to acute blood loss anemia, rapid atrial fibrillation -Hold lisinopril and Imdur -Give metoprolol with hold parameters for rapid atrial fibrillation -Give gentle normal saline IV fluid boluses as needed for low blood pressures Continue to monitor blood pressure (13) Aortic stenosis: at least moderate follow as outpt (14) Acute blood loss anemia: with hgb drop as above no need for transfusion hemodynamic instability related to rapid Af-b -follow CBC (15) DVT prophylaxis: -Teds, SCDs, starting Xarelto 10 mg daily CODE STATUS: Full Disposition: continue tele PT/OT will continue to work with him daily Referrals have been made to rehab facility Admission and Anticipated Discharge Date Admission Date: June 01, 2019 Anticipated date of discharge: 06/05/19 Subjective Pt feeling much better today. Less pain in hip. BPs were quite low overnight in the 70s systolic and responded to bolus of IVFs 1 LNS. Remains in rapid Afib today and I discussed the case with Cardiology-decided to dc IV amiodarone and digoxin load. Pt denies chest pain or SOB. He denies abd pain or nausea. Tele with rapid Afib in the 100s-130s Review of Systems Review of Systems: All systems reviewed & are unremarkable except as noted in HPI & below Physical Exam Constitutional: WD/WN, vitals as above Eyes: + anicteric sclerae Neck: trachea midline, no thyromegaly Respiratory: normal respiratory effort; no labored breathing Auscultation: + diminished lung sounds (throughout); no crackles, no rhonchi and no wheezes Cardiovascular: Rate/Rhythm: + tachycardic and + irregularly irregular Heart Sounds: + murmur (2/6 SAIRA at RUSB) Extremities: no edema Chest (Breasts): Chest: normal inspection of chest Gastrointestinal (Abdomen): normal bowel sounds, soft, nontender, no hepatosplenomegaly Musculoskeletal: Extremities: + wrist abnormality (cast in place, rt fingers NVI) Right; + extremities abnormal to inspection (Right hip with dressing clean dry and intact, 1+ dorsalis pedis pulses bilaterally, sensation intact distally in the feet), no cyanosis and no clubbing Skin: + lesion (inumerable 0.5-1.0 cm circular macular lesions and excoriations all over ) Neurologic: awake Psychiatric: A+Ox3, euthymic affect Lymphatic: no lymphedema Results & Data ([facility]) Vital Signs (Past 12 Hours) Vital Signs Temp Pulse Pulse Resp BP Pulse Ox Pulse Ox 06/04/19 11:01 36.8 C 96 H 18 123/66 97 06/04/19 10:30 93 H 98/63 L 06/04/19 09:37 113 H 101/60 06/04/19 08:00 123 H 113/65 06/04/19 07:05 36.9 C 100 H 20 100/63 100 06/04/19 06:15 101 H 93/64 L 93 06/04/19 05:05 109 H 88/58 L 94 06/04/19 04:00 37.0 C 131 H 20 86/62 L 95 93 06/04/19 01:45 119 H Laboratory Results 06/04/19 06/04/19 Range/Units 05:32 05:32 WBC 11.15 H (4.8-10.8) K/uL RBC 3.88 L (4.7-6.1) M/uL Hgb 10.2 L (14.0-18.0) g/dL Hct 32.0 L (42-52) % MCV 82.5 (80-100) fL MCH 26.3 (25-34) pg MCHC 31.9 L (32-36) g/dL RDW Std Deviation 48.2 H (36.4-46.3) fL RDW Coeff of Ike 16.0 H (11.5-14.5) % Plt Count 179 (130-400) K/uL MPV 10.1 (7.4-10.4) fL Immature Gran % (Auto) 0.2 % Neut % (Auto) 69.3 % Lymph % (Auto) 9.4 % [place] % (Auto) 11.7 % Eos % (Auto) 9.3 % Baso % (Auto) 0.1 % Immature Gran # (Auto) 0.02 (0.00-0.02) K/uL Neut # (Auto) 7.73 H (1.4-6.5) K/uL Lymph # (Auto) 1.05 L (1.2-3.4) K/uL [place] # (Auto) 1.30 H (0.11-0.59) K/uL Eos # (Auto) 1.04 H (0-0.5) K/uL Baso # (Auto) 0.01 (0-0.2) K/uL Sodium 135 L (136-145) mmol/L Potassium 3.3 L (3.5-5.1) mmol/L Chloride 101 (98-107) mmol/L Carbon Dioxide 29 (21-32) mmol/L Anion Gap 6.0 (3-11) BUN 19 H (7-18) mg/dl Creatinine 0.76 D (0.6-1.4) mg/dl Est Cr Clr Drug Dosing 107.2 ml/min Est GFR ( Amer) 106.4 Est GFR (Non-Af Amer) 91.8 BUN/Creatinine Ratio 25.3 H (10-20) Glucose 116 H (70-99) mg/dl Calcium 8.3 L (8.5-10.1) mg/dl Magnesium 1.6 L (1.8-2.4) mg/dl PG Care Time/CCT Total # of Minutes Spent Total Time Spent with Patient: Total time spent is greater than 50% in coordination of care (as documented) at patient's floor/unit and/or counseling patient: Coding Level of Care Code 79246 Subseq Hosp Care Lvl 3 Diagnoses Closed right hip fracture S72.001A Right radial fracture S52.91XA Atrial fibrillation with RVR I48.91 COPD (chronic obstructive pulmonary disease) J44.9 COPD type: unspecified COPD Abnormal ECG R94.31 CAD (coronary artery disease) I25.10 Associated angina: without angina Coronary Disease-Associated Artery/Lesion type: [place] artery [place] vs. transplanted heart: [place] heart Demand ischemia of myocardium I24.8 Acute respiratory failure with hypoxia J96.01 Vitamin D deficiency E55.9 Psoriasis L40.9 Hypercholesterolemia E78.00 Hypertension I10 Hypertension type: essential hypertension Aortic stenosis I35.0 Acute blood loss anemia D62 DVT prophylaxis Z29.9 (1) CAD (coronary artery disease) Associated angina: without angina Coronary Disease-Associated Artery/Lesion type: [place] artery [place] vs. transplanted heart: [place] heart Qualified Code(s): I25.10 - Atherosclerotic heart disease of [place] coronary artery without angina pectoris (2) COPD (chronic obstructive pulmonary disease) COPD type: unspecified COPD Qualified Code(s): J44.9 - Chronic obstructive pulmonary disease, unspecified (3) Hypertension Hypertension type: essential hypertension Qualified Code(s): I10 - Essential (primary) hypertension
[2019-06-04] MEDS ORDERED: DIGOXIN 250 MCG in SYRINGE 9 ML IV ONE (13:00)
[2019-06-04] MEDS ORDERED: DIGOXIN 0.125 MG TAB PO SCH ×2 (14:15→16:00)
[2019-06-04] MEDS ORDERED: METOPROLOL TARTRATE 25 MG TAB PO SCH (21:00)
[2019-06-04] MEDS: SIMVASTATIN 40 MG TAB PO SCH (21:10)
[2019-06-04] MEDS: DOCUSATE SODIUM/SENNA 50/8.6MG TAB PO SCH (21:15)
[2019-06-04] MEDS: OXYCODONE HCL IR 5 MG TAB (IMMEDIATE RELEASE) PO PRN (22:56)
[2019-06-05] MEDS: ACETAMINOPHEN 500 MG TAB PO SCH ×3 (06:07→21:11)
[2019-06-05 06:21] LABS: Basophils # (auto) 0.02 K/uL (0-0.2); Basophils % (auto) 0.2 %; Eosinophils # (auto) 1.39 K/uL (0-0.5); Hematocrit (blood only) 33.6 % (42-52); Hemoglobin 10.8 g/dL (14.0-18.0); Immature Granulocytes # (auto) 0.03 K/uL (0.00-0.02); Immature Granulocytes % (auto) 0.2 %; Lymphocytes # (auto) 1.35 K/uL (1.2-3.4); Lymphocytes % (auto) 10.7 %; Mean Corpuscular Hemoglobin 26.2 pg (25-34); Mean Corpuscular Hgb Conc 32.1 g/dL (32-36); Mean Corpuscular Volume 81.4 fL (80-100); Mean Platelet Volume 9.6 fL (7.4-10.4); Monocytes # (auto) 1.54 K/uL (0.11-0.59); Monocytes % (auto) 12.2 %; Neutrophils # (auto) 8.32 K/uL (1.4-6.5); Neutrophils % (auto) 65.7 %; Platelet Count 226 K/uL (130-400); RDW Coefficient of Variation 15.9 % (11.5-14.5); RDW Standard Deviation 47.5 fL (36.4-46.3); Red Blood Count 4.13 M/uL (4.7-6.1); White Blood Count 12.65 K/uL (4.8-10.8)
[2019-06-05 06:51] LABS: BUN Creatinine Ratio 14.7 (10-20); Calcium 8.7 mg/dl (8.5-10.1); Creatinine Clr Calc Pharmacy 113.7 ml/min; Est GFR (African American) 108.2; Est GFR (Non-African American) 93.3; Magnesium 1.9 mg/dl (1.8-2.4); Potassium 3.7 mmol/L (3.5-5.1)
--- NOTE | 2019-06-05 08:52 | Progress Note ---
DATE: 06/05/2019 SUBJECTIVE: A 73-year-old gentleman postop day 3 from a right total hip replacement done for femoral neck fracture and casting of a wrist fracture. He has been in the PCU for new onset atrial fibrillation with a rapid rate. His rate is under better control this morning. Pain seems to be getting a little bit better. Still pretty "ouchie." PHYSICAL EXAMINATION: GENERAL: Shows a pleasant, middle-aged male. He is sitting up in bed, looks pretty comfortable this morning. EXTREMITIES: Examination of the right arm reveals the cast to be fitting well. No significant swelling. Wrist is well aligned. He is neurologically intact. Examination of the right hip reveals the leg lengths to be equal. His dressing has been changed. It is clean. His thigh is soft and supple. His hip is located. He is neurologically intact. LABORATORY DATA: Hemoglobin is 10.8. Hematocrit 33.6. Electrolytes are stable. ASSESSMENT: A 73-year-old gentleman postop day 3 from right hybrid total hip replacement done for femoral neck fracture and casting of a distal radius fracture. Orthopedically, he is doing well. Having some pain which is not unexpected. His heart rate seems to be under better control. PLAN: 1. DVT prophylaxis including thigh-high TEDs, SCDs, and he is on Xarelto now. He should be on a prophylactic dose today and then tomorrow he can go up to a therapeutic dose from the orthopedic standpoint. 2. PT/OT. He can weightbear as tolerated. He can fully weightbear on the right hip. He needs to follow hip precautions. He can use his right arm on a platform crutch. 3. Medical management as per the medicine service. 4. Disposition: He is orthopedically okay for discharge any time medically stable. Any orthopedic questions can be directed to me at [phone]. I need to see him back somewhere between 2 and 3 weeks out from his surgery date.
[2019-06-05] MEDS: ASPIRIN 81 MG ECTAB PO SCH (09:24)
[2019-06-05] MEDS: RIVAROXABAN 10 MG TABLET PO SCH (09:24)
[2019-06-05] MEDS: METOPROLOL TARTRATE 25 MG TAB PO SCH ×2 (09:25→21:20)
[2019-06-05] MEDS: CHOLECALCIFEROL 1,000 UNITS 25 MCG TAB PO SCH (09:25)
[2019-06-05] MEDS: FLUTICASONE/VILANTEROL 100/25MCG 14 PUFFS/INHALER INH SCH (09:26)
[2019-06-05] MEDS ORDERED: MAGNESIUM SULFATE / D5W 1 GM/100 ML BAG IV ONE (09:29)
[2019-06-05] MEDS ORDERED: POTASSIUM CHLORIDE 20 MEQ TABCR PO STA (09:29)
[2019-06-05] MEDS ORDERED: METOPROLOL TARTRATE 50 MG TAB PO STA (09:37)
[2019-06-05] MEDS ORDERED: DIGOXIN 0.25 MG TAB PO ONE (09:37)
--- NOTE | 2019-06-05 09:37 | Cardiology Progress Note ---
Date of Service June 05, 2019 Assessment & Plan (1) CAD (coronary artery disease): He has coronary disease but that does not seem to be an acute issue, he has no symptoms to suggest angina. (2) Hypertension: Adequate control on current regimen. Mild LVH on his current echocardiogram. He had been hypotensive for several days but currently he is relatively normotensive. (3) Hypercholesterolemia: Maintained on simvastatin which he should continue with his coronary artery disease. (4) Aortic stenosis: He has newly discovered aortic stenosis which is at least moderate. His had questions about the disease and prognosis, I did tell her that I could not tell her too much about the valve because it was not well visualized but it is somewhat narrowed and it probably will progress over time and ultimately he may need a valve replacement but certainly not in the near future and this will have to be followed. (5) PAF (paroxysmal atrial fibrillation): He remains in atrial fibrillation intermittently, over the past 24 hours visually he appears to be in it about half of the time. The heart rate is better controlled today on digoxin but is still somewhat elevated and his digoxin level is only 0.7. I am going to give him another dose of digoxin this morning and increase his daily dose. We will need to follow that up with another level in a week or 2 to make sure that he is at steady state, the level today really reflects the loading dose. Since his blood pressure is good I am going to go up on the metoprolol as well, back to his outpatient dose of 25 mg twice daily. I would continue amiodarone even though so far it has not worked very well but could over the long run. (6) Closed fracture of right hip: The is doing well postoperatively, he is on low-dose anticoagulation. When safe from the orthopedic standpoint I would like to increase that to Xarelto 20 mg daily. Admission and Anticipated Discharge Date Admission Date: June 01, 2019 Anticipated date of discharge: 06/05/19 Subjective He is complaining of feeling tired, he was aware that he was in and out of atrial fibrillation during the night but he did not have symptoms related to it. He has not had lightheadedness or dizziness. He is tolerating the digoxin well. Physical Exam Physical Exam: Constitutional: Alert, cooperative and in no distress. HEENT: Unremarkable Neck: No jugular venous distention, carotid pulses are irregular but otherwise normal and equal bilaterally without bruits. Pulmonary: Clear to auscultation bilaterally. Cardiac: Irregular rapid rhythm with a grade 2/6 crescendo decrescendo murmur at the base, no gallop or rub. Abdomen: Soft, nontender with normal bowel sounds. Extremities: No edema. Distal pulses intact. Neurologic: No focal findings. Gait is steady. Skin: No rash, ecchymoses or petechiae. Results & Data ([facility]) Vital Signs (Past 12 Hours) Vital Signs Temp Pulse Pulse Resp BP Pulse Ox Pulse Ox 06/05/19 08:00 59 L 06/05/19 07:08 37.0 C 60 20 138/60 98 06/05/19 04:00 95 06/05/19 03:59 36.8 C 58 L 17 140/68 95 06/05/19 00:00 62 Laboratory Results CBC 06/05/19 Range/Units 06:04 WBC 12.65 H (4.8-10.8) K/uL RBC 4.13 L (4.7-6.1) M/uL Hgb 10.8 L (14.0-18.0) g/dL Hct 33.6 L (42-52) % Plt Count 226 (130-400) K/uL Neut # (Auto) 8.32 H (1.4-6.5) K/uL Lymph # (Auto) 1.35 (1.2-3.4) K/uL [place] # (Auto) 1.54 H (0.11-0.59) K/uL Eos # (Auto) 1.39 H (0-0.5) K/uL Baso # (Auto) 0.02 (0-0.2) K/uL Comprehensive Metabolic Panel 06/05/19 Range/Units 06:04 Sodium 136 (136-145) mmol/L Potassium 3.7 (3.5-5.1) mmol/L Chloride 101 (98-107) mmol/L Carbon Dioxide 32 (21-32) mmol/L BUN 11 (7-18) mg/dl Creatinine 0.73 (0.6-1.4) mg/dl Glucose 96 (70-99) mg/dl Calcium 8.7 (8.5-10.1) mg/dl Intake and Output 06/04/19 06/05/19 06/05/19 22:59 06:59 14:59 Intake Total 622 / 1079.137 100 / 1079.137 Output Total 250 / 1051 550 / 1051 Balance 372 / 28.137 -450 / 28.137 Intake: Oral 622 / 722 100 / 722 Output: Urine 550 / 800 Other 250 / 250 Other: Weight 86.6 kg Diagnostic Findings Telemetry: He has been going in and out of atrial fibrillation, during atrial fibrillation his heart rate is better controlled at around 100, during sinus rhythm his heart rate is around 60. PG Care Time/CCT Total # of Minutes Spent Total Time Spent with Patient: Total time spent is greater than 50% in coordination of care (as documented) at patient's floor/unit and/or counseling patient: Coding Level of Care Code 02286 Subseq Hosp Care Lvl 3 Diagnoses CAD (coronary artery disease) I25.10 Associated angina: without angina Coronary Disease-Associated Artery/Lesion type: [place] artery [place] vs. transplanted heart: [place] heart Hypertension I10 Hypertension type: essential hypertension Hypercholesterolemia E78.00 Aortic stenosis I35.0 PAF (paroxysmal atrial fibrillation) I48.0 Closed fracture of right hip S72.001A Encounter type: initial encounter (1) CAD (coronary artery disease) Associated angina: without angina Coronary Disease-Associated Artery/Lesion type: [place] artery [place] vs. transplanted heart: [place] heart Qualified Code(s): I25.10 - Atherosclerotic heart disease of [place] coronary artery without angina pectoris (2) Hypertension Hypertension type: essential hypertension Qualified Code(s): I10 - Essential (primary) hypertension (3) Closed fracture of right hip Encounter type: initial encounter Qualified Code(s): S72.001A - Fracture of unspecified part of neck of right femur, initial encounter for closed fracture
[2019-06-05] MEDS: NICOTINE 21 MG/24 HR TDSY TD SCH (10:40)
[2019-06-05] MEDS: OXYCODONE HCL IR 5 MG TAB (IMMEDIATE RELEASE) PO PRN ×2 (10:48→23:20)
[2019-06-05] MEDS: DIGOXIN 0.25 MG TAB PO SCH (15:05)
[2019-06-05] MEDS: SIMVASTATIN 40 MG TAB PO SCH (21:21)
[2019-06-05] MEDS: DOCUSATE SODIUM/SENNA 50/8.6MG TAB PO SCH (21:21)
--- NOTE | 2019-06-05 23:29 | Hospitalist Progress Note ---
Date of Service June 05, 2019 Assessment & Plan (1) Closed right hip fracture: Secondary to mechanical fall onto his driveway after slipping Likely osteoporosis with current pathological fracture, R femur and R radius - Ortho consulted-appreciate management-now status post right hybrid total hip arthroplasty for displaced femoral neck fracture on 06/02 Overall improving -Continue pain management with Tylenol [id number], oxycodone prn -Continue bowel regimen -DVT prophylaxis with Xarelto 10 mg daily x2 days starting 06/04, then orthopedics says it would be safe to increase to the full anticoagulation dose for his A. fib as below -Hemoglobin did drop somewhat since admission from 12.8-10.5 on POD1 and now stable at 10.8-acute blood loss anemia secondary to hip fracture and hip surgery -Follow CBC in the morning PT/OT evaluations-orthopedics reports he is allowed to fully weight-bear as tolerated in the right leg (2) Right radial fracture: - Imaging reviewed showing cortical irregularity of the distal radial metaphysis is suggestive of a subtle acute nondisplaced fracture with mild associated soft tissue swelling. -He is now status post casting of a right distal radius fracture on 06/02 -pain control prn as above -Orthopedics recommends he can use his right arm for weightbearing and walker assistance and would probably benefit from a platform walker given his hip fracture as above (3) Atrial fibrillation with RVR: - in rapid afib on admission, then converted to sinus bradycardia prior to surgery on 06/02 -He was then in rapid atrial fibrillation since the afternoon of 06/03 -rates initially in the 160s, then improved but remain 100-130s despite IV amiodarone and IV lopressor, po metoprolol low dose Added on digoxin-loaded on 06/04 and discontinued IV amiodarone Converted to sinus rohan on AM of 06/05 and then in and out of MANPREET alternating with SB since then -Low BPs limiting use of AV hyacinth blocking agents -He gets symptomatic with palpitations and left upper extremity pain when his rates are very fast - Recently had event monitor as an outpatient which revealed frequent rapid afib with rates into the 140s-170s at times and was seen by cardiology on the day of admission-recommendation was to start p.o. amiodarone and Xarelto Cardio consult appreciated -restart po amiodarone 200mg po bid as per Cardio -continue digoxin 250mcg daily and check digoxin level in AM and again in 1 week -continue metoprolol tartrate 25mg po bid -continue tele monitoring -cont Xarelto and can now safely increase to 20 mg daily as per orthopedic recommendation -Keep electrolytes replete- will give potassium chloride 40 mEq p.o. x1 today and Mag sulfate 1 gm IV -Follow BMP, magnesium (4) COPD (chronic obstructive pulmonary disease): With mild exacerbation on admission, requiring O2 Diminished air movement throughout but is now improving -dyspnea improved but remains on supplemental O2 -continue Duonebs as needed -continue O2 to keep POx 88-92% - Currently smoking 1 ppd x 51 years-encouraged cessation -continue nicotine patch (5) Abnormal ECG: Anterolat ST depressions with rapid Afib on admission -trop mildly elevated at 0.131, no chest pain Repeat ECG the morning after admission then with sinus rohan, no further ST depressions Echocardiogram with mild LVH, at least moderate aortic stenosis, no wall motion abnormalities and preserved LV function (6) CAD (coronary artery disease): With a h/o inferior wall CT and RANJAN to the RCA in 11/[address] depression on admission ECG in setting of Rapid Afib -trop mildly elevated 0.131 but likely demand ischemia -no chest pain now or on admission -Continue ASA 81 mg -Will continue to hold Imdur for hypotension -Continue metoprolol tartrate 25 mg twice daily -Continue simvastatin -Continue to hold lisinopril for hypotension (7) Demand ischemia of myocardium: as above, trop mildly elevated, due to rapid Afib (8) Acute respiratory failure with hypoxia: secondary to COPD exacerbation as above -wean off supplemental O2 as able to (9) Vitamin D deficiency: Vit D level only 7 -started Vit D 1000 units po qAM (10) Psoriasis: Pt with diffuse macular rash with excoriations. He tells me he has eczema [facility], NOT psoriasis No current treatment -suspect possible Staph infection -is getting Clinda for preop abx and would refer to DERM after discharge (11) Hypercholesterolemia: -Continue simvastatin 40 mg HS (12) Hypertension: With hypotension postoperatively due to acute blood loss anemia, rapid atrial fibrillation BPs now improved -continue to hold lisinopril and Imdur -Give metoprolol with hold parameters for rapid atrial fibrillation -Given gentle normal saline IV fluid boluses as needed for low blood pressures Continue to monitor blood pressure (13) Aortic stenosis: at least moderate follow as outpt (14) Acute blood loss anemia: with hgb drop as above no need for transfusion hemodynamic instability related to rapid Afib -follow CBC (15) DVT prophylaxis: -Teds, SCDs, Xarelto CODE STATUS: Full Disposition: continue tele PT/OT will continue to work with him daily Referrals have been made to rehab facility Admission and Anticipated Discharge Date Admission Date: June 01, 2019 Anticipated date of discharge: 06/05/19 Subjective Pt was sound asleep when I came to see him and I did not wake him as he seemed comfortable. RN reports he has been in and out of Afib with rapid rates all day but then also going into sinus rohan. He worked with PT today and had pain with that as per nursing. Review of Systems Review of Systems: Other (unobtainable due to pt sleeping) Physical Exam 2 Constitutional: WD/WN, vitals as above Eyes: + anicteric sclerae Neck: trachea midline, no thyromegaly Respiratory: normal respiratory effort; no labored breathing Auscultation: + diminished lung sounds (throughout); no crackles, no rhonchi and no wheezes Cardiovascular: Rate/Rhythm: regular rhythm and + bradycardic Heart Sounds: + murmur (2/6 SAIRA at RUSB) Extremities: no edema Chest (Breasts): Chest: normal inspection of chest Gastrointestinal (Abdomen): normal bowel sounds, soft, nontender, no hepatosplenomegaly Musculoskeletal: Extremities: + wrist abnormality (cast in place); + extremities abnormal to inspection (Right hip with dressing clean dry and intact), no cyanosis and no clubbing Skin: + lesion (inumerable 0.5-1.0 cm circular macular lesions and excoriations all over ) Lymphatic: no lymphedema Results & Data ([facility]) Vital Signs (Past 12 Hours) Vital Signs Temp Pulse Pulse Resp BP Pulse Ox Pulse Ox 06/05/19 23:06 37.3 C 55 L 18 138/59 L 97 06/05/19 19:03 36.9 C 59 L 20 149/58 H 97 06/05/19 16:00 97 06/05/19 15:53 36.6 C 55 L 20 159/62 H 94 06/05/19 15:05 50 L 02/14/20 12:00 97 06/05/19 11:45 36.8 C 58 L 18 139/60 98 Laboratory Results 06/05/19 06/05/19 06/05/19 Range/Units 06:04 06:04 06:04 WBC 12.65 H (4.8-10.8) K/uL RBC 4.13 L (4.7-6.1) M/uL Hgb 10.8 L (14.0-18.0) g/dL Hct 33.6 L (42-52) % MCV 81.4 (80-100) fL MCH 26.2 (25-34) pg MCHC 32.1 (32-36) g/dL RDW Std Deviation 47.5 H (36.4-46.3) fL RDW Coeff of Ike 15.9 H (11.5-14.5) % Plt Count 226 (130-400) K/uL MPV 9.6 (7.4-10.4) fL Immature Gran % (Auto) 0.2 % Neut % (Auto) 65.7 % Lymph % (Auto) 10.7 % [place] % (Auto) 12.2 % Eos % (Auto) 11.0 % Baso % (Auto) 0.2 % Immature Gran # (Auto) 0.03 H (0.00-0.02) K/uL Neut # (Auto) 8.32 H (1.4-6.5) K/uL Lymph # (Auto) 1.35 (1.2-3.4) K/uL [place] # (Auto) 1.54 H (0.11-0.59) K/uL Eos # (Auto) 1.39 H (0-0.5) K/uL Baso # (Auto) 0.02 (0-0.2) K/uL Sodium 136 (136-145) mmol/L Potassium 3.7 (3.5-5.1) mmol/L Chloride 101 (98-107) mmol/L Carbon Dioxide 32 (21-32) mmol/L Anion Gap 4.0 (3-11) BUN 11 (7-18) mg/dl Creatinine 0.73 (0.6-1.4) mg/dl Est Cr Clr Drug Dosing 113.7 ml/min Est GFR ( Amer) 108.2 Est GFR (Non-Af Amer) 93.3 BUN/Creatinine Ratio 14.7 (10-20) Glucose 96 (70-99) mg/dl Calcium 8.7 (8.5-10.1) mg/dl Magnesium 1.9 (1.8-2.4) mg/dl Digoxin 0.7 L (0.8-2.0) ng/ml PG Care Time/CCT Total # of Minutes Spent Total Time Spent with Patient: Total time spent is greater than 50% in coordination of care (as documented) at patient's floor/unit and/or counseling patient: Coding Level of Care Code 90181 Subseq Hosp Care Lvl 2 Diagnoses Closed right hip fracture S72.001A Right radial fracture S52.91XA Atrial fibrillation with RVR I48.91 COPD (chronic obstructive pulmonary disease) J44.9 COPD type: unspecified COPD Abnormal ECG R94.31 CAD (coronary artery disease) I25.10 Coronary Disease-Associated Artery/Lesion type: [place] artery [place] vs. transplanted heart: [place] heart Associated angina: without angina Demand ischemia of myocardium I24.8 Acute respiratory failure with hypoxia J96.01 Vitamin D deficiency E55.9 Psoriasis L40.9 Hypercholesterolemia E78.00 Hypertension I10 Hypertension type: essential hypertension Aortic stenosis I35.0 Acute blood loss anemia D62 DVT prophylaxis Z29.9 (1) COPD (chronic obstructive pulmonary disease) COPD type: unspecified COPD Qualified Code(s): J44.9 - Chronic obstructive pulmonary disease, unspecified (2) CAD (coronary artery disease) Coronary Disease-Associated Artery/Lesion type: [place] artery [place] vs. transplanted heart: [place] heart Associated angina: without angina Qualified Code(s): I25.10 - Atherosclerotic heart disease of [place] coronary artery without angina pectoris (3) Hypertension Hypertension type: essential hypertension Qualified Code(s): I10 - Essential (primary) hypertension
[2019-06-06] MEDS: ACETAMINOPHEN 500 MG TAB PO SCH ×3 (05:35→21:06)
[2019-06-06 07:17] LABS: Basophils # (auto) 0.02 K/uL (0-0.2); Basophils % (auto) 0.2 %; Eosinophils # (auto) 1.26 K/uL (0-0.5); Eosinophils % (auto) 11.8 %; Hematocrit (blood only) 33.8 % (42-52); Hemoglobin 10.4 g/dL (14.0-18.0); Immature Granulocytes # (auto) 0.03 K/uL (0.00-0.02); Immature Granulocytes % (auto) 0.3 %; Lymphocytes % (auto) 12.1 %; Mean Corpuscular Hemoglobin 25.8 pg (25-34); Mean Corpuscular Hgb Conc 30.8 g/dL (32-36); Mean Corpuscular Volume 83.9 fL (80-100); Mean Platelet Volume 9.9 fL (7.4-10.4); Monocytes % (auto) 12.1 %; Neutrophils % (auto) 63.5 %; Platelet Count 239 K/uL (130-400); RDW Coefficient of Variation 15.7 % (11.5-14.5); RDW Standard Deviation 48.3 fL (36.4-46.3); Red Blood Count 4.03 M/uL (4.7-6.1); White Blood Count 10.71 K/uL (4.8-10.8)
[2019-06-06 07:52] LABS: BUN Creatinine Ratio 16.9 (10-20); Calcium 8.8 mg/dl (8.5-10.1); Creatinine Clr Calc Pharmacy 138.2 ml/min; Est GFR (African American) 117.2; Est GFR (Non-African American) 101.2; Magnesium 1.8 mg/dl (1.8-2.4); Potassium 3.7 mmol/L (3.5-5.1)
[2019-06-06] MEDS: ASPIRIN 81 MG ECTAB PO SCH (08:53)
[2019-06-06] MEDS: AMIODARONE 200 MG TAB PO SCH ×2 (08:53→17:04)
[2019-06-06] MEDS: FLUTICASONE/VILANTEROL 100/25MCG 14 PUFFS/INHALER INH SCH (08:53)
[2019-06-06] MEDS: CHOLECALCIFEROL 1,000 UNITS 25 MCG TAB PO SCH (08:53)
[2019-06-06] MEDS: METOPROLOL TARTRATE 25 MG TAB PO SCH (08:54)
[2019-06-06] MEDS: NICOTINE 21 MG/24 HR TDSY TD SCH (09:24)
[2019-06-06] MEDS ORDERED: POTASSIUM CHLORIDE 20 MEQ TABCR PO ONE (09:45)
--- NOTE | 2019-06-06 10:57 | Hospitalist Progress Note ---
Date of Service June 06, 2019 Assessment & Plan (1) Closed right hip fracture: Secondary to mechanical fall onto his driveway after slipping Likely osteoporosis with current pathological fracture, R femur and R radius - Ortho consulted-appreciate management-now status post right hybrid total hip arthroplasty for displaced femoral neck fracture on 06/02 Overall improving from Orhto standpoint -Continue pain management with Tylenol [id number], oxycodone prn -Continue bowel regimen -DVT prophylaxis with Xarelto 20 mg daily (for Afib also) -Hemoglobin did drop somewhat since admission from 12.8-10.5 on POD1 and now stable at 10.4-acute blood loss anemia secondary to hip fracture and hip surgery PT/OT evaluations-orthopedics reports he is allowed to fully weight-bear as tolerated in the right leg (2) Right radial fracture: - Imaging reviewed showing cortical irregularity of the distal radial metaphysis is suggestive of a subtle acute nondisplaced fracture with mild associated soft tissue swelling. -He is now status post casting of a right distal radius fracture on 06/02 -pain control prn as above -Orthopedics recommends he can use his right arm for weightbearing and walker assistance and would probably benefit from a platform walker given his hip fracture as above (3) Atrial fibrillation with RVR: - in rapid afib on admission, then converted to sinus bradycardia prior to surgery on 06/02 -He was then in rapid atrial fibrillation since the afternoon of 06/03 -rates initially in the 160s, then improved but remain 100-130s despite IV amiodarone and IV lopressor, po metoprolol low dose Added on digoxin-loaded on 06/04 and discontinued IV amiodarone Converted to sinus rohan on AM of 06/05 and then in and out of MANPREET alternating with SB since then -Low BPs limiting use of AV hyacinth blocking agents but BPs now improving -He gets symptomatic with palpitations and left upper extremity pain when his rates are very fast - Recently had event monitor as an outpatient which revealed frequent rapid afib with rates into the 140s-170s at times and was seen by cardiology on the day of admission-recommendation was to start p.o. amiodarone and Xarelto Cardio consult appreciated -continue po amiodarone 200mg po bid as per Cardio as may give benefit eventually -continue digoxin 250mcg daily and digoxin leve now 0.8, and check level again in 1 week -continue metoprolol tartrate 25mg po bid -continue tele monitoring -cont Xarelto 20 mg daily -Keep electrolytes replete- will give potassium chloride 40 mEq p.o. x1 today -Follow BMP, magnesium Appreciate any further Cardio recommendations given frequent rapid Afib/flutter that continues today (4) COPD (chronic obstructive pulmonary disease): With mild exacerbation on admission, requiring O2 Diminished air movement throughout but is now improving -dyspnea improved but remains on supplemental O2 -continue Duonebs as needed -continue O2 to keep POx 88-92% - Currently smoking 1 ppd x 51 years-encouraged cessation -continue nicotine patch (5) Abnormal ECG: Anterolat ST depressions with rapid Afib on admission -trop mildly elevated at 0.131, no chest pain Repeat ECG the morning after admission then with sinus rohan, no further ST depressions Echocardiogram with mild LVH, at least moderate aortic stenosis, no wall motion abnormalities and preserved LV function (6) CAD (coronary artery disease): With a h/o inferior wall [place] and RANJAN to the RCA in 11/[address] depression on admission ECG in setting of Rapid Afib -trop mildly elevated 0.131 but likely demand ischemia -no chest pain now or on admission -Continue ASA 81 mg -Will continue to hold Imdur for hypotension -Continue metoprolol tartrate 25 mg twice daily -Continue simvastatin -Continue to hold lisinopril for hypotension (7) Demand ischemia of myocardium: as above, trop mildly elevated, due to rapid Afib (8) Acute respiratory failure with hypoxia: secondary to COPD exacerbation as above -wean off supplemental O2 as able to (9) Vitamin D deficiency: Vit D level only 7 -started Vit D 1000 units po qAM -needs DEXA scan within 6 months for osteoporotic fractures and Vit D deficiency (10) Psoriasis: Pt with diffuse macular rash with excoriations. He tells me he has eczema based [facility], NOT psoriasis No current treatment -suspect possible Staph infection -is getting Clinda for preop abx and would refer to DERM after discharge (11) Hypercholesterolemia: -Continue simvastatin 40 mg HS (12) Hypertension: With hypotension postoperatively due to acute blood loss anemia, rapid atrial fibrillation BPs now much improved -continue to hold lisinopril and Imdur -Give metoprolol with hold parameters for rapid atrial fibrillation -Given gentle normal saline IV fluid boluses as needed for low blood pressures Continue to monitor blood pressure (13) Aortic stenosis: at least moderate follow as outpt (14) Acute blood loss anemia: with hgb drop as above, now stable no need for transfusion hemodynamic instability related to rapid Afib -follow CBC (15) DVT prophylaxis: -Teds, SCDs, Xarelto CODE STATUS: Full Disposition: continue tele PT/OT will continue to work with him daily Referrals have been made to rehab facility Admission and Anticipated Discharge Date Admission Date: June 01, 2019 Anticipated date of discharge: 06/08/19 Subjective Pt feeling ok. Still in and out of Afib and flutter alternating with SB, rates in 100s-120s in flutter. No chest pain or SOB. No nausea or abd pain. Some hip pain and right wrist pain. Not lightheaded Review of Systems Review of Systems: All systems reviewed & are unremarkable except as noted in HPI & below (except reports having a small amount of blood in urine yesterday) Physical Exam Constitutional: WD/WN, vitals as above Eyes: + anicteric sclerae Neck: trachea midline, no thyromegaly Respiratory: normal respiratory effort; no labored breathing Auscultation: + diminished lung sounds (throughout but improved movement from before); no crackles, no rhonchi and no wheezes Cardiovascular: Rate/Rhythm: + bradycardic, + tachycardic and + irregularly irregular Heart Sounds: + murmur (2/6 SAIRA at RUSB) Extremities: no edema Chest (Breasts): Chest: normal inspection of chest Gastrointestinal (Abdomen): normal bowel sounds, soft, nontender, no hepatosplenomegaly Musculoskeletal: Extremities: + wrist abnormality (cast in place); + extremities abnormal to inspection (Right hip with dressing clean dry and intact), no cyanosis and no clubbing Skin: + lesion (inumerable 0.5-1.0 cm circular macular lesions and excoriati ons all over ) Neurologic: awake Psychiatric: A+Ox3, euthymic affect Lymphatic: no lymphedema Results & Data ([facility]) Vital Signs (Past 12 Hours) Vital Signs Temp Pulse Pulse Resp BP Pulse Ox 06/06/19 07:42 36.6 C 62 17 149/60 H 92 06/06/19 03:59 36.6 C 82 19 124/74 94 06/06/19 00:19 58 L 06/05/19 23:06 37.3 C 55 L 18 138/59 L 97 Laboratory Results 06/06/19 06/06/19 06/06/19 Range/Units 06:56 06:56 06:56 WBC 10.71 (4.8-10.8) K/uL RBC 4.03 L (4.7-6.1) M/uL Hgb 10.4 L (14.0-18.0) g/dL Hct 33.8 L (42-52) % MCV 83.9 (80-100) fL MCH 25.8 (25-34) pg MCHC 30.8 L (32-36) g/dL RDW Std Deviation 48.3 H (36.4-46.3) fL RDW Coeff of Ike 15.7 H (11.5-14.5) % Plt Count 239 (130-400) K/uL MPV 9.9 (7.4-10.4) fL Immature Gran % (Auto) 0.3 % Neut % (Auto) 63.5 % Lymph % (Auto) 12.1 % [place] % (Auto) 12.1 % Eos % (Auto) 11.8 % Baso % (Auto) 0.2 % Immature Gran # (Auto) 0.03 H (0.00-0.02) K/uL Neut # (Auto) 6.80 H (1.4-6.5) K/uL Lymph # (Auto) 1.30 (1.2-3.4) K/uL [place] # (Auto) 1.30 H (0.11-0.59) K/uL Eos # (Auto) 1.26 H (0-0.5) K/uL Baso # (Auto) 0.02 (0-0.2) K/uL Sodium 136 (136-145) mmol/L Potassium 3.7 (3.5-5.1) mmol/L Chloride 99 (98-107) mmol/L Carbon Dioxide 32 (21-32) mmol/L Anion Gap 6.0 (3-11) BUN 10 (7-18) mg/dl Creatinine 0.60 (0.6-1.4) mg/dl Est Cr Clr Drug Dosing 138.2 ml/min Est GFR ( Amer) 117.2 Est GFR (Non-Af Amer) 101.2 BUN/Creatinine Ratio 16.9 (10-20) Glucose 92 (70-99) mg/dl Calcium 8.8 (8.5-10.1) mg/dl Magnesium 1.8 (1.8-2.4) mg/dl Digoxin 0.8 (0.8-2.0) ng/ml PG Care Time/CCT Total # of Minutes Spent Total Time Spent with Patient: Total time spent is greater than 50% in coordination of care (as documented) at patient's floor/unit and/or counseling patient: Coding Level of Care Code 51058 Subseq Hosp Care Lvl 3 Diagnoses Closed right hip fracture S72.001A Right radial fracture S52.91XA Atrial fibrillation with RVR I48.91 COPD (chronic obstructive pulmonary disease) J44.9 COPD type: unspecified COPD Abnormal ECG R94.31 CAD (coronary artery disease) I25.10 Associated angina: without angina Coronary Disease-Associated Artery/Lesion type: [place] artery [place] vs. transplanted heart: [place] heart Demand ischemia of myocardium I24.8 Acute respiratory failure with hypoxia J96.01 Vitamin D deficiency E55.9 Psoriasis L40.9 Hypercholesterolemia E78.00 Hypertension I10 Hypertension type: essential hypertension Aortic stenosis I35.0 Acute blood loss anemia D62 DVT prophylaxis Z29.9 (1) CAD (coronary artery disease) Associated angina: without angina Coronary Disease-Associated Artery/Lesion type: [place] artery [place] vs. transplanted heart: [place] heart Qualified Code(s): I25.10 - Atherosclerotic heart disease of [place] coronary artery without angina pectoris (2) COPD (chronic obstructive pulmonary disease) COPD type: unspecified COPD Qualified Code(s): J44.9 - Chronic obstructive pulmonary disease, unspecified (3) Hypertension Hypertension type: essential hypertension Qualified Code(s): I10 - Essential (primary) hypertension
[2019-06-06] MEDS: RIVAROXABAN 20 MG TAB PO SCH (17:04)
[2019-06-06] MEDS: DIGOXIN 0.25 MG TAB PO SCH (17:45)
[2019-06-06] MEDS: METOPROLOL TARTRATE 50 MG TAB PO SCH (21:05)
[2019-06-06] MEDS: SIMVASTATIN 40 MG TAB PO SCH (21:05)
[2019-06-06] MEDS: DOCUSATE SODIUM/SENNA 50/8.6MG TAB PO SCH (21:14)
[2019-06-06] MEDS: OXYCODONE HCL IR 5 MG TAB (IMMEDIATE RELEASE) PO PRN (23:53)
[2019-06-07] MEDS: ACETAMINOPHEN 500 MG TAB PO SCH ×3 (05:59→21:19)
[2019-06-07 06:59] LABS: Calcium 8.7 mg/dl (8.5-10.1); Creatinine Clr Calc Pharmacy 123.7 ml/min; Est GFR (Non-African American) 96.7; Magnesium 1.7 mg/dl (1.8-2.4); Potassium 3.8 mmol/L (3.5-5.1)
[2019-06-07] MEDS: CHOLECALCIFEROL 1,000 UNITS 25 MCG TAB PO SCH (08:13)
[2019-06-07] MEDS: FLUTICASONE/VILANTEROL 100/25MCG 14 PUFFS/INHALER INH SCH (08:14)
[2019-06-07] MEDS: ASPIRIN 81 MG ECTAB PO SCH (08:14)
[2019-06-07] MEDS: AMIODARONE 200 MG TAB PO SCH (08:14)
[2019-06-07] MEDS: METOPROLOL TARTRATE 50 MG TAB PO SCH ×2 (08:15→21:19)
[2019-06-07] MEDS: NICOTINE 21 MG/24 HR TDSY TD SCH (08:15)
[2019-06-07] MEDS: MAGNESIUM SULFATE / D5W 1 GM/100 ML BAG IV SCH ×2 (09:30→10:24)
[2019-06-07] MEDS ORDERED: POTASSIUM CHLORIDE 20 MEQ TABCR PO ONE (09:30)
--- NOTE | 2019-06-07 12:00 | Hospitalist Progress Note ---
Date of Service June 07, 2019 Assessment & Plan (1) Closed right hip fracture: Secondary to mechanical fall onto his driveway after slipping Likely osteoporosis with current pathological fracture, R femur and R radius - Ortho consulted-appreciate management-now status post right hybrid total hip arthroplasty for displaced femoral neck fracture on 06/02 Overall improving from Ortho standpoint -Continue pain management with Tylenol [id number], oxycodone prn -Continue bowel regimen -DVT prophylaxis with Xarelto 20 mg daily (for Afib also) -Hemoglobin did drop somewhat since admission from 12.8-10.5 on POD1 and now stable at 10.4-acute blood loss anemia secondary to hip fracture and hip surgery PT/OT evaluations-orthopedics reports he is allowed to fully weight-bear as tolerated in the right leg (2) Right radial fracture: - Imaging reviewed showing cortical irregularity of the distal radial metaphysis is suggestive of a subtle acute nondisplaced fracture with mild associated soft tissue swelling. -He is now status post casting of a right distal radius fracture on 06/02 -pain control prn as above -Orthopedics recommends he can use his right arm for weightbearing and walker assistance and would probably benefit from a platform walker given his hip fracture as above (3) Atrial fibrillation with RVR: - in rapid afib on admission, then converted to sinus bradycardia prior to surgery on 06/02 Recently had event monitor as an outpatient which revealed frequent rapid afib with rates into the 140s-170s at times and was seen by cardiology on the day of admission-recommendation was to start p.o. amiodarone and Xarelto at that time -He was then in rapid atrial fibrillation since the afternoon of 06/03 -rates initially in the 160s, then improved but remain 100-130s despite IV amiodarone and IV lopressor, po metoprolol low dose Added on digoxin-loaded on 06/04 and discontinued IV amiodarone Converted to sinus rohan on AM of 06/05 and then in and out of MANPREET alternating with SB since then Likely driven by catecholamines As of 06/07, mostly SB with rates in the 40s-50s during the daytime -Low BPs previously limiting use of AV hyacinth blocking agents but BPs now much improved -He gets symptomatic with palpitations and left upper extremity pain when his rates are very fast Cardio consult appreciated--> now rates in sinus are too slow, concern he may develop a block while on amiodarone,digoxin, and AV hyacinth sherry -dc po amiodarone -reduce digoxin to 125mcg daily for bradycardia; digoxin level now 0.8, and check level again in 1-2 weeks -increased metoprolol tartrate to 50mg po bid -continue tele monitoring -cont Xarelto 20 mg daily -Keep electrolytes replete- will give potassium chloride 20 mEq p.o. x1 today and 1 gm IV Mag -Follow BMP, magnesium Appreciate Cardio recommendations -will need outpt Cardiology f/u closely (4) COPD (chronic obstructive pulmonary disease): With mild exacerbation on admission, requiring O2 Diminished air movement throughout but is now improving -dyspnea improved but remains on supplemental O2 at times, removed today and POx 88-90% on RA -continue Duonebs as needed -continue O2 to keep POx 88-92% - Currently smoking 1 ppd x 51 years-encouraged cessation -continue nicotine patch (5) Abnormal ECG: Anterolat ST depressions with rapid Afib on admission -trop mildly elevated at 0.131, no chest pain Repeat ECG the morning after admission then with sinus rohan, no further ST depressions Echocardiogram with mild LVH, at least moderate aortic stenosis, no wall motion abnormalities and preserved LV function (6) CAD (coronary artery disease): With a h/o inferior wall TX and RANJAN to the RCA in 11/[address] depression on admission ECG in setting of Rapid Afib -trop mildly elevated 0.131 but likely demand ischemia -no chest pain now or on admission -Continue ASA 81 mg -Will continue to hold Imdur for hypotension-unsure if should restart just yet with ongoing adjustments to meds for Afib -Continue metoprolol tartrate 50 mg twice daily (just increased on evening of 06/06) -Continue simvastatin -Continue to hold lisinopril for hypotension (7) Demand ischemia of myocardium: as above, trop mildly elevated, due to rapid Afib in setting of known CAD (8) Acute respiratory failure with hypoxia: secondary to COPD exacerbation as above -wean off supplemental O2 as able to, but likely seems he will need O2 at discharge (9) Vitamin D deficiency: Vit D level only 7 -started Vit D 1000 units po qAM -needs DEXA scan within 6 months for osteoporotic fractures and Vit D deficiency (10) Psoriasis: Pt with diffuse macular rash with excoriations. He tells me he has eczema based on biopsy by [facility], NOT psoriasis No current treatment -suspect possible Staph infection -is getting Clinda for preop abx and would refer to DERM after discharge (11) Hypercholesterolemia: -Continue simvastatin 40 mg HS (12) Hypertension: With hypotension postoperatively due to acute blood loss anemia, rapid atrial fibrillation BPs now much improved -continue to hold lisinopril and Imdur -Give metoprolol with hold parameters for atrial fibrillation -Was given gentle normal saline IV fluid boluses as needed for low blood pressures-none further needed Continue to monitor blood pressure (13) Aortic stenosis: at least moderate follow as outpt (14) Acute blood loss anemia: with hgb drop as above after fracture and surgery, now stable no need for transfusion hemodynamic instability related to rapid Afib now resolved -follow CBC periodically (15) DVT prophylaxis: -Teds, SCDs, Xarelto CODE STATUS: Full Disposition: continue tele PT/OT will continue to work with him daily Referrals have been made to rehab facility If heart rates remain stable, hopeful can apply for insurance auth for rehab on Saturday Admission and Anticipated Discharge Date Admission Date: June 01, 2019 Anticipated date of discharge: 06/08/19 Subjective Feeling tired in the AM after receiving AM meds. Had some sweating last night and scratched open his bottom. He frequently picks at his skin. He denies chest pain or SOB over his usual. Taken off O2 when I saw him and POx 88-91% on RA. Not lightheaded. Tele with SB most of the day yesterday and last night, then some rapid Afib to the 100s-110s this AM. Moving his bowels regularly. Ambulated around the room. Review of Systems Review of Systems: All systems reviewed & are unremarkable except as noted in HPI & below Physical Exam Constitutional: WD/WN, vitals as above Eyes: + anicteric sclerae Neck: trachea midline, no thyromegaly Respiratory: normal respiratory effort; no labored breathing Auscultation: + diminished lung sounds (throughout but improved movement from before); no crackles, no rhonchi and no wheezes Cardiovascular: Rate/Rhythm: regular rhythm and + bradycardic Heart Sounds: + murmur (2/6 SAIRA at RUSB) Extremities: no edema Chest (Breasts): Chest: normal inspection of chest Gastrointestinal (Abdomen): normal bowel sounds, soft, nontender, no hepatosplenomegaly Musculoskeletal: Extremities: + wrist abnormality (cast in place); + extremities abnormal to inspection (Right hip with dressing clean dry and intact), no cyanosis and no clubbing Skin: + lesion (inumerable 0.5-1.0 cm circular macular lesions and excoriations all over ) Neurologic: awake Psychiatric: A+Ox3, euthymic affect Lymphatic: no lymphedema Results & Data ([facility]) Vital Signs (Past 12 Hours) Vital Signs Temp Pulse Pulse Resp BP BP Pulse Ox 06/07/19 08:01 37.9 C H 89 16 132/64 92 06/07/19 08:00 57 L 06/07/19 04:00 36.6 C 51 L 18 145/55 H 98 06/07/19 00:00 52 L Laboratory Results 06/07/19 Range/Units 05:39 Sodium 136 (136-145) mmol/L Potassium 3.8 (3.5-5.1) mmol/L Chloride 98 (98-107) mmol/L Carbon Dioxide 33 H (21-32) mmol/L Anion Gap 5.0 (3-11) BUN 11 (7-18) mg/dl Creatinine 0.67 (0.6-1.4) mg/dl Est Cr Clr Drug Dosing 123.7 ml/min Est GFR ( Amer) 112.0 Est GFR (Non-Af Amer) 96.7 BUN/Creatinine Ratio 17.0 (10-20) Glucose 91 (70-99) mg/dl Calcium 8.7 (8.5-10.1) mg/dl Magnesium 1.7 L (1.8-2.4) mg/dl PG Care Time/CCT Total # of Minutes Spent Total Time Spent with Patient: Total time spent is greater than 50% in coordination of care (as documented) at patient's floor/unit and/or counseling patient: Coding Level of Care Code 63025 Subseq Hosp Care Lvl 3 Diagnoses Closed right hip fracture S72.001A Right radial fracture S52.91XA Atrial fibrillation with RVR I48.91 COPD (chronic obstructive pulmonary disease) J44.9 COPD type: unspecified COPD Abnormal ECG R94.31 CAD (coronary artery disease) I25.10 Associated angina: without angina Coronary Disease-Associated Artery/Lesion type: [place] artery [place] vs. transplanted heart: [place] heart Demand ischemia of myocardium I24.8 Acute respiratory failure with hypoxia J96.01 Vitamin D deficiency E55.9 Psoriasis L40.9 Hypercholesterolemia E78.00 Hypertension I10 Hypertension type: essential hypertension Aortic stenosis I35.0 Acute blood loss anemia D62 DVT prophylaxis Z29.9 (1) CAD (coronary artery disease) Associated angina: without angina Coronary Disease-Associated Artery/Lesion type: [place] artery [place] vs. transplanted heart: [place] heart Qualified Code(s): I25.10 - Atherosclerotic heart disease of [place] coronary artery without angina pectoris (2) COPD (chronic obstructive pulmonary disease) COPD type: unspecified COPD Qualified Code(s): J44.9 - Chronic obstructive pulmonary disease, unspecified (3) Hypertension Hypertension type: essential hypertension Qualified Code(s): I10 - Essential (primary) hypertension
--- NOTE | 2019-06-07 12:57 | Cardiology Progress Note ---
Date of Service June 07, 2019 Subjective Patient was seen and examined today and was resting comfortably with no complaints. Review of Systems Review of Systems: All systems reviewed & are unremarkable except as noted in HPI & below Physical Exam Physical Exam: General appearance: Awake alert and oriented no apparent distress stable pleasant HEENT: Normocephalic atraumatic Neck: Supple no JVD bruits adenopathy or thyromegaly noted Cardiovascular: Bradycardic regular rhythm with a 2/6 systolic murmur best appreciated at the right upper sternal border normal S1-S2 Lungs: Clear to auscultation bilaterally Abdomen: Soft nontender nondistended with positive bowel sounds or bruits masses noted Extremities: No clubbing cyanosis or edema Neuro: Grossly nonfocal Results & Data Vital Signs (Past 12 Hours) Vital Signs Temp Pulse Pulse Resp BP BP Pulse Ox 06/07/19 11:56 36.9 C 50 L 22 122/52 L 91 06/07/19 08:01 37.9 C H 89 16 132/64 92 06/07/19 08:00 57 L 06/07/19 04:00 36.6 C 51 L 18 145/55 H 98 Impression: 1. Paroxysmal atrial fibrillation 2. Coronary artery disease 3. Hyperlipidemia 4. HTN 5. Aortic stenosis Plan: 1. Patient continues to have transient bouts of rapid atrial fibrillation in between sinus bradycardia. He was on amiodarone digoxin and metoprolol which his heart rate dropped to as low as 39 bpm in a sinus bradycardia.I am concerned about high degree AV block, Therefore I have recommended we discontinue amiodarone and continue with metoprolol tartrate 50 mg twice daily as well as digoxin 125 mcg daily.We will continue to monitor on telemetry and reassess in am on current regimen titrating as needed and BP/ HR tolerating. We will continue with oral anticoagulation as well as telemetry monitoring. 2. We will continue guideline directed medical therapy for his coronary artery disease for which he is stable. 3. Continue simvastatin therapy 4. His BP is stable at this point. 5. In terms of his aortic valve stenosis, the patient is stable and will need outpatient follow-up echocardiogram He will follow-up with Dr. Mejia If you have any questions please feel free to contact me and thank you for allow me to participate in care of this patient
[2019-06-07] MEDS: RIVAROXABAN 20 MG TAB PO SCH (16:05)
[2019-06-07] MEDS: DIGOXIN 0.125 MG TAB PO SCH (16:15)
[2019-06-07] MEDS: SIMVASTATIN 40 MG TAB PO SCH (21:20)
[2019-06-07] MEDS: DOCUSATE SODIUM/SENNA 50/8.6MG TAB PO SCH (21:21)
[2019-06-08] MEDS: OXYCODONE HCL IR 5 MG TAB (IMMEDIATE RELEASE) PO PRN ×2 (00:12→22:14)
[2019-06-08] MEDS: ACETAMINOPHEN 500 MG TAB PO SCH ×3 (05:47→21:43)
[2019-06-08 07:27] LABS: BUN Creatinine Ratio 18.3 (10-20); Calcium 8.4 mg/dl (8.5-10.1); Est GFR (African American) 112.7; Est GFR (Non-African American) 97.3; Magnesium 1.8 mg/dl (1.8-2.4); Potassium 3.7 mmol/L (3.5-5.1)
[2019-06-08] MEDS: FLUTICASONE/VILANTEROL 100/25MCG 14 PUFFS/INHALER INH SCH (07:55)
[2019-06-08] MEDS: ASPIRIN 81 MG ECTAB PO SCH (07:55)
[2019-06-08] MEDS: METOPROLOL TARTRATE 50 MG TAB PO SCH (07:55)
[2019-06-08] MEDS: CHOLECALCIFEROL 1,000 UNITS 25 MCG TAB PO SCH (07:55)
[2019-06-08] MEDS: NICOTINE 21 MG/24 HR TDSY TD SCH (07:58)
--- NOTE | 2019-06-08 09:00 | Cardiology Progress Note ---
Date of Service June 08, 2019 Assessment & Plan (1) CAD (coronary artery disease): He has coronary disease but that does not seem to be an acute issue, he has no symptoms to suggest angina. (2) Hypertension: Adequate control on current regimen. Mild LVH on his current echocardiogram. He had been hypotensive for several days but currently he is relatively normotensive. (3) Hypercholesterolemia: Maintained on simvastatin which he should continue with his coronary artery disease. (4) Aortic stenosis: He has newly discovered aortic stenosis which is at least moderate. His had questions about the disease and prognosis, I did tell her that I could not tell her too much about the valve because it was not well visualized but it is somewhat narrowed and it probably will progress over time and ultimately he may need a valve replacement but certainly not in the near future and this will have to be followed. (5) PAF (paroxysmal atrial fibrillation): He continues to have paroxysmal atrial fibrillation. Over the weekend our approach was changed to rate control and anticoagulation from rhythm control, however we had already established that he did not want to remain in atrial fibrillation since he is quite symptomatic. The only options are antiarrhythmic therapy or ablation to maintain sinus rhythm, he has not demonstrated any significant abnormality (such as heart block or severe bradycardia) on amiodarone. I would continue our initial approach I discussed the options with the patient again today. I am going to put him back on amiodarone and decrease his digoxin which might be making him feel poorly in any case. His digoxin level is a little bit subtherapeutic, I am going to continue the current dose but check the level again as he approaches steady state, prior levels reflected loading primarily. (6) Closed fracture of right hip: The is doing well postoperatively, he is now on appropriate anticoagulation.. Admission and Anticipated Discharge Date Admission Date: June 01, 2019 Anticipated date of discharge: 06/08/19 Subjective Currently he is feeling tired, he feels that he is felt more tired over the last several days. He is also now aware of having a rapid heart rate and feeling poorly during it overnight. Physical Exam Physical Exam: Constitutional: Alert, cooperative and in no distress. HEENT: Unremarkable Neck: No jugular venous distention, carotid pulses are irregular but otherwise normal and equal bilaterally without bruits. Pulmonary: Clear to auscultation bilaterally. Cardiac: Irregular rapid rhythm with a grade 2/6 crescendo decrescendo murmur at the base, no gallop or rub. Abdomen: Soft, nontender with normal bowel sounds. Extremities: No edema. Distal pulses intact. Neurologic: No focal findings. Gait is steady. Skin: No rash, ecchymoses or petechiae. Results & Data ([facility]) Vital Signs (Past 12 Hours) Vital Signs Temp Pulse Pulse Resp BP BP Pulse Ox 06/08/19 07:54 65 06/08/19 07:23 36.6 C 56 L 17 114/58 L 96 06/08/19 03:27 36.5 C 105 H 16 129/50 L 95 06/08/19 00:00 53 L 06/07/19 23:38 36.8 C 55 L 16 141/41 H 98 Laboratory Results Comprehensive Metabolic Panel 06/08/19 Range/Units 06:38 Sodium 137 (136-145) mmol/L Potassium 3.7 (3.5-5.1) mmol/L Chloride 99 (98-107) mmol/L Carbon Dioxide 34 H (21-32) mmol/L BUN 12 (7-18) mg/dl Creatinine 0.66 (0.6-1.4) mg/dl Glucose 96 (70-99) mg/dl Calcium 8.4 L (8.5-10.1) mg/dl Intake and Output 06/07/19 06/08/19 06/08/19 22:59 06:59 14:59 Intake Total 300 / 910 200 / 910 Output Total 300 / 800 Balance 300 / 110 -100 / 110 Intake: Oral 300 / 720 200 / 720 Output: Urine 300 / 800 Other: Weight 87.5 kg Diagnostic Findings Telemetry: He continues to have episodes of atrial fibrillation with heart rates that are elevated during it. He also has periods of bradycardia in between with heart rates in the low 50s. PG Care Time/CCT Total # of Minutes Spent Total Time Spent with Patient: Total time spent is greater than 50% in coordination of care (as documented) at patient's floor/unit and/or counseling patient: Coding Level of Care Code 23153 Subseq Hosp Care Lvl 3 Diagnoses CAD (coronary artery disease) I25.10 Associated angina: without angina Coronary Disease-Associated Artery/Lesion type: [place] artery [place] vs. transplanted heart: [place] heart Hypertension I10 Hypertension type: essential hypertension Hypercholesterolemia E78.00 Aortic stenosis I35.0 PAF (paroxysmal atrial fibrillation) I48.0 Closed fracture of right hip S72.001A Encounter type: initial encounter (1) CAD (coronary artery disease) Associated angina: without angina Coronary Disease-Associated Artery/Lesion type: [place] artery [place] vs. transplanted heart: [place] heart Qualified Code(s): I25.10 - Atherosclerotic heart disease of [place] coronary artery without angina pectoris (2) Hypertension Hypertension type: essential hypertension Qualified Code(s): I10 - Essential (primary) hypertension (3) Closed fracture of right hip Encounter type: initial encounter Qualified Code(s): S72.001A - Fracture of unspecified part of neck of right femur, initial encounter for closed fracture
[2019-06-08] MEDS ORDERED: AMIODARONE 200 MG TAB PO ONE (11:00)
--- NOTE | 2019-06-08 16:00 | Hospitalist Progress Note ---
Date of Service June 08, 2019 Assessment & Plan (1) Closed right hip fracture: Secondary to mechanical fall onto his driveway after slipping Likely osteoporosis with current pathological fracture, R femur and R radius - Ortho consulted-appreciate management-now status post right hybrid total hip arthroplasty for displaced femoral neck fracture on 06/02 Overall improving from Ortho standpoint less pain, increased mobility, ambulated with walker today -Continue pain management with Tylenol [id number], oxycodone prn -Continue bowel regimen, he is moving bowels -DVT prophylaxis with Xarelto 20 mg daily (for Afib also) -Hemoglobin dropped slightly but stabilized PT/OT evaluations-orthopedics reports he is allowed to fully weight-bear as tolerated in the right leg plan for rehab, would be medically ready tomorrow continue with PT/OT (2) Right radial fracture: - Imaging reviewed showing cortical irregularity of the distal radial metaphysis is suggestive of a subtle acute nondisplaced fracture with mild associated soft tissue swelling. -He is now status post casting of a right distal radius fracture on 06/02 -pain control prn as above -Orthopedics recommends he can use his right arm for weightbearing and walker assistance and would probably benefit from a platform walker given his hip fracture as above (3) Atrial fibrillation with RVR: - in rapid afib on admission, then converted to sinus bradycardia prior to surgery on 06/02 Recently had event monitor as an outpatient which revealed frequent rapid afib with rates into the 140s-170s at times and was seen by cardiology on the day of admission-recommendation was to start p.o. amiodarone and Xarelto at that time -He was then in rapid atrial fibrillation since the afternoon of 06/03 -rates initially in the 160s, then improved but remain 100-130s despite IV amiodarone and IV lopressor, po metoprolol low dose Added on digoxin-loaded on 06/04 and discontinued IV amiodarone Converted to sinus rohan on AM of 06/05 and then in and out of MANPREET alternating with SB since then Likely driven by catecholamines today, 06/08, rates in the 50's discussed with Dr. Mejia, prefer rhythm control because he is symptomatic from atrial fibrillation continue Amiodarone 200mg BID, low dose digoxin and continue metoprolol continue Xarelto for anticoagulation discussed with Dr. Mejia, no need for further hospitalization from cardiology perspective (4) COPD (chronic obstructive pulmonary disease): With mild exacerbation on admission, requiring O2 Diminished air movement throughout but is now improving -dyspnea improved but remains on supplemental O2 at times -continue Duonebs as needed -continue O2 to keep POx 88-92% - Currently smoking 1 ppd x 51 years-encouraged cessation refusing nicotine patch says he is committed to quitting (5) Abnormal ECG: Anterolat ST depressions with rapid Afib on admission -trop mildly elevated at 0.131, no chest pain Repeat ECG the morning after admission then with sinus rohan, no further ST depressions Echocardiogram with mild LVH, at least moderate aortic stenosis, no wall motion abnormalities and preserved LV function likely demand ischemia from RVR, no further work up planned (6) CAD (coronary artery disease): With a h/o inferior wall GA and RANJAN to the RCA in 11/[address] depression on admission ECG in setting of Rapid Afib -trop mildly elevated 0.131 but likely demand ischemia -no chest pain now or on admission -Continue ASA 81 mg -Will continue to hold Imdur for hypotension -Continue metoprolol tartrate BID -Continue simvastatin -Continue to hold lisinopril for hypotension (7) Demand ischemia of myocardium: as above, trop mildly elevated, due to rapid Afib in setting of known CAD (8) Acute respiratory failure with hypoxia: secondary to COPD exacerbation as above -wean off supplemental O2 as able to, but likely seems he will need O2 at discharge can continue this at [facility] (9) Vitamin D deficiency: Vit D level only 7 -started Vit D 1000 units po qAM -needs DEXA scan within 6 months for osteoporotic fractures and Vit D deficiency (10) Psoriasis: Pt with diffuse macular rash with excoriations. He tells me he has eczema based on biopsy [facility], NOT psoriasis No current treatment -suspect possible Staph infection -is getting Clinda for preop abx and would refer to DERM after discharge (11) Hypercholesterolemia: -Continue simvastatin 40 mg HS (12) Hypertension: With hypotension postoperatively due to acute blood loss anemia, rapid atrial fibrillation BPs now much improved -continue to hold lisinopril and Imdur -Give metoprolol with hold parameters for atrial fibrillation -Was given gentle normal saline IV fluid boluses as needed for low blood pressures-none further needed Continue to monitor blood pressure (13) Aortic stenosis: at least moderate follow as outpt (14) Acute blood loss anemia: with hgb drop as above after fracture and surgery, now stable no need for transfusion hemodynamic instability related to rapid Afib now resolved -follow CBC periodically (15) DVT prophylaxis: -Teds, SCDs, Xarelto CODE STATUS: Full Disposition: continue tele PT/OT will continue to work with him daily Referrals have been made to rehab facility If heart rates remain stable, hopeful can apply for insurance auth for rehab on Saturday Admission and Anticipated Discharge Date Admission Date: June 01, 2019 Anticipated date of discharge: 06/09/19 Subjective patient feels well, says "I'm doing as well as expected with two broken bones" reviewed monitor, he is in sinus bradycardia discussed with Dr. Mejia, appreciate his input patient is eating great, says he is eating more than he eats at home discussed with cyanide case hardener, will apply for rehab auth once he does therapy today labs today show stable Cr and electrolytes reviewed chart since admission Review of Systems Review of Systems: All systems reviewed & are unremarkable except as noted in HPI & below Respiratory: no cough, no dyspnea and no wheezing Cardiovascular: no chest pain and no edema Musculoskeletal: + joint pain (right hip, right wrist); no back pain and no neck pain Physical Exam Constitutional: WD/WN, vitals as above Eyes: PERRL, conjunctivae normal, anicteric sclerae ENMT: external ear and nose normal, oropharynx normal Neck: trachea midline, no thyromegaly Respiratory: normal respiratory effort, lungs clear to auscultation Cardiovascular: Rate/Rhythm: regular rate and + bradycardic Heart Sounds: normal S1, normal S2 and + murmur (systolic) Vessels: no JVD Extremities: normal capillary refill; no edema Gastrointestinal (Abdomen): normal bowel sounds, soft, nontender, no hepatosplenomegaly Musculoskeletal: Head/Neck/Chest: normocephalic and head atraumatic Extremities: + extremities abnormal to inspection (right forearm cast), no muscle atrophy, no cyanosis and no clubbing Gait: + limp Hip: + hip abnormal to inpsection (right) Skin: no rashes, warm and dry Neurologic: patellar DTR's 2+ bilat, sensation intact and PERRL, EOMI, accommodation nl, no face palsy, no dysarthria Psychiatric: A+Ox3, euthymic affect Lymphatic: no cervical or axillary lymphadenopathy Results & Data ([facility]) Vital Signs (Past 12 Hours) Vital Signs Temp Pulse Resp BP Pulse Ox 06/08/19 15:04 36.9 C 52 L 18 132/51 L 94 06/08/19 11:02 36.6 C 50 L 16 107/47 L 96 06/08/19 07:54 65 06/08/19 07:23 36.6 C 56 L 17 114/58 L 96 Laboratory Results Laboratory Results - last 24 hr 06/08/19 06:38 Sodium 137 Potassium 3.7 Chloride 99 Carbon Dioxide 34 H Anion Gap 4.0 BUN 12 Creatinine 0.66 Est Cr Clr Drug Dosing 126.0 Est GFR ( Amer) 112.7 Est GFR (Non-Af Amer) 97.3 BUN/Creatinine Ratio 18.3 Glucose 96 Calcium 8.4 L Magnesium 1.8 Medications Administered Current Inpatient Medications Acetaminophen (Tylenol) 1,000 mg PO Q8 [facility] Stop: 07/01/19 21:59 Last Admin: 06/08/19 21:43 Dose: 1,000 mg Documented by: Albuterol (Duoneb) 3 ml NEB Q4R PRN PRN Reason: Shortness Of Breath Or Wheezing Stop: 07/03/19 14:59 Amiodarone HCl (Cordarone) 200 mg PO BIDM [facility] Stop: 07/08/19 16:59 Last Admin: 06/08/19 16:57 Dose: 200 mg Documented by: Aspirin (Ecotrin Ectab) 81 mg PO QAM [facility] Stop: 07/02/19 08:59 Last Admin: 06/08/19 07:55 Dose: 81 mg Documented by: Bisacodyl (Dulcolax) 10 mg IA DAILY PRN PRN Reason: Constipation Stop: 07/01/19 19:52 Digoxin (Lanoxin) 0.125 mg PO DAILY@1600 [facility] Stop: 07/07/19 15:59 Last Admin: 06/08/19 16:54 Dose: 0.125 mg Documented by: Fluticasone/Vilanterol (Breo Ellipta 100/25 Mcg Inh) 1 puffs INH DAILY [facility] Stop: 07/02/19 08:59 Last Admin: 06/08/19 07:55 Dose: 1 puffs Documented by: Magnesium Hydroxide (Milk Of Magnesia) 30 ml PO DAILY PRN PRN Reason: Constipation Stop: 07/01/19 19:52 Metoprolol Tartrate (Lopressor) 25 mg PO BID [facility] Stop: 07/08/19 20:59 Last Admin: 06/08/19 21:41 Dose: 25 mg Documented by: Miscellaneous (Remove Nicoderm Patch) 1 ea N/A DAILY@0859 [facility] Stop: 07/02/19 08:58 Last Admin: 06/08/19 07:58 Dose: Not Given Documented by: Naloxone HCl (Narcan) 0.1 mg IV UD PRN PRN Reason: Opioid Overdose Stop: 07/02/19 18:18 Nicotine (Nicoderm Cq) 21 mg TD [facility] Stop: 07/01/19 20:59 Last Admin: 06/08/19 07:58 Dose: Not Given Documented by: Oxycodone HCl (Roxicodone Immediate Rel) 5 mg PO Q4H PRN PRN Reason: MODERATE Pain (Scale 4,5,6) Stop: 06/15/19 19:52 Last Admin: 06/08/19 22:14 Dose: 5 mg Documented by: Rivaroxaban (Xarelto) 20 mg PO QDD [facility] Stop: 07/06/19 16:29 Last Admin: 06/08/19 16:54 Dose: 20 mg Documented by: Senna/Docusate Sodium (Senokot S) 2 tab PO [facility] Stop: 07/01/19 20:59 Last Admin: 06/08/19 21:43 Dose: 2 tab Documented by: Simvastatin (Zocor) 40 mg PO [facility] Stop: 07/01/19 20:59 Last Admin: 06/08/19 21:41 Dose: 40 mg Documented by: Vitamin D (Vitamin D3) 1,000 units PO [facility] Stop: 07/03/19 08:59 Last Admin: 06/08/19 07:55 Dose: 1,000 units Documented by: PG Care Time/CCT Total # of Minutes Spent Total Time Spent with Patient: Total time spent is greater than 50% in coordination of care (as documented) at patient's floor/unit and/or counseling patient: Coding Level of Care Code 80794 Subseq Hosp Care Lvl 3 Diagnoses Closed right hip fracture S72.001A Right radial fracture S52.91XA Atrial fibrillation with RVR I48.91 COPD (chronic obstructive pulmonary disease) J44.9 COPD type: unspecified COPD Abnormal ECG R94.31 CAD (coronary artery disease) I25.10 Associated angina: without angina Coronary Disease-Associated Artery/Lesion type: [place] artery [place] vs. transplanted heart: [place] heart Demand ischemia of myocardium I24.8 Acute respiratory failure with hypoxia J96.01 Vitamin D deficiency E55.9 Psoriasis L40.9 Hypercholesterolemia E78.00 Hypertension I10 Hypertension type: essential hypertension Aortic stenosis I35.0 Acute blood loss anemia D62 DVT prophylaxis Z29.9 (1) CAD (coronary artery disease) Associated angina: without angina Coronary Disease-Associated Artery/Lesion type: [place] artery [place] vs. transplanted heart: [place] heart Qualified Code(s): I25.10 - Atherosclerotic heart disease of [place] coronary artery without angina pectoris (2) COPD (chronic obstructive pulmonary disease) COPD type: unspecified COPD Qualified Code(s): J44.9 - Chronic obstructive pulmonary disease, unspecified (3) Hypertension Hypertension type: essential hypertension Qualified Code(s): I10 - Essential (primary) hypertension
[2019-06-08] MEDS: DIGOXIN 0.125 MG TAB PO SCH (16:54)
[2019-06-08] MEDS: RIVAROXABAN 20 MG TAB PO SCH (16:54)
[2019-06-08] MEDS: AMIODARONE 200 MG TAB PO SCH (16:57)
[2019-06-08] MEDS: METOPROLOL TARTRATE 25 MG TAB PO SCH (21:41)
[2019-06-08] MEDS: SIMVASTATIN 40 MG TAB PO SCH (21:41)
[2019-06-08] MEDS: DOCUSATE SODIUM/SENNA 50/8.6MG TAB PO SCH (21:43)
[2019-06-09] MEDS: ACETAMINOPHEN 500 MG TAB PO SCH ×2 (05:39→13:54)
[2019-06-09 06:27] LABS: Creatinine Clr Calc Pharmacy 104.2 ml/min; Est GFR (African American) 104.7; Est GFR (Non-African American) 90.3
[2019-06-09] MEDS: FLUTICASONE/VILANTEROL 100/25MCG 14 PUFFS/INHALER INH SCH (08:27)
[2019-06-09] MEDS: METOPROLOL TARTRATE 25 MG TAB PO SCH (08:28)
[2019-06-09] MEDS: ASPIRIN 81 MG ECTAB PO SCH (08:28)
[2019-06-09] MEDS: AMIODARONE 200 MG TAB PO SCH ×2 (08:28→15:43)
[2019-06-09] MEDS: CHOLECALCIFEROL 1,000 UNITS 25 MCG TAB PO SCH (08:28)
[2019-06-09] MEDS: NICOTINE 21 MG/24 HR TDSY TD SCH (08:29)
--- NOTE | 2019-06-09 08:56 | Cardiology Progress Note ---
Date of Service June 09, 2019 Assessment & Plan (1) CAD (coronary artery disease): He has coronary disease but that does not seem to be an acute issue, he has no symptoms to suggest angina. (2) Hypertension: Adequate control on current regimen. Mild LVH on his current echocardiogram. I am going to discontinue his beta-sherry due to his bradycardia now that amiodarone seems to be effective in controlling his atrial arrhythmia. I am also going to discontinue digoxin. (3) Hypercholesterolemia: Maintained on simvastatin which he should continue with his coronary artery disease. (4) Aortic stenosis: He has newly discovered aortic stenosis which is at least moderate. His had questions about the disease and prognosis, I did tell her that I could not tell her too much about the valve because it was not well visualized but it is somewhat narrowed and it probably will progress over time and ultimately he may need a valve replacement but certainly not in the near future and this will have to be followed. (5) PAF (paroxysmal atrial fibrillation): He seems to be doing much better with his atrial fibrillation, I am sure in part because of amiodarone, possibly as he recovers from his injury and his catecholamine level drops. His heart rate remains low during sinus rhythm (tachybradycardia syndrome), I am therefore going to discontinue his beta- sherry and his digoxin. We can always restart him if needed and he is on low doses of both. Hopefully amiodarone alone will be sufficient both for rate control if he has recurrent atrial fibrillation and for rhythm control. I would send him home on his current dose of amiodarone (400 mg daily), that can either be once or twice daily. He is on full dose Xarelto (20 mg daily) and should continue it. He does have an appointment with Dr. Dinero on June 24, I entered that in his discharge paperwork. (6) Closed fracture of right hip: The is doing well postoperatively, he is now on appropriate anticoagulation.. Admission and Anticipated Discharge Date Admission Date: June 01, 2019 Anticipated date of discharge: 06/09/19 Subjective He is doing well other than difficulty with his IV site. No cardiovascular complaints. Physical Exam Physical Exam: Constitutional: Alert, cooperative and in no distress. HEENT: Unremarkable Neck: No jugular venous distention, carotid pulses are normal and equal bilaterally without bruits. Pulmonary: Clear to auscultation bilaterally. Cardiac: Regular slow rhythm with a grade 2/6 crescendo decrescendo murmur at the base, no gallop or rub. Abdomen: Soft, nontender with normal bowel sounds. Extremities: No edema. Distal pulses intact. Right wrist in a cast Neurologic: No focal findings. Gait is steady. Skin: No rash, ecchymoses or petechiae. Results & Data ([facility]) Vital Signs (Past 12 Hours) Vital Signs Temp Pulse Pulse Resp BP BP Pulse Ox 06/09/19 08:24 60 132/51 L 06/09/19 07:19 36.8 C 48 L 18 107/51 L 96 06/09/19 04:00 36.8 C 52 L 22 127/55 L 95 06/08/19 23:15 36.9 C 52 L 18 108/45 L 95 Diagnostic Findings Telemetry: Sinus bradycardia since yesterday, no atrial fibrillation for the past 24 hours PG Care Time/CCT Total # of Minutes Spent Total Time Spent with Patient: Total time spent is greater than 50% in coordination of care (as documented) at patient's floor/unit and/or counseling patient: Coding Level of Care Code 01495 Subseq Hosp Care Lvl 2 Diagnoses CAD (coronary artery disease) I25.10 Coronary Disease-Associated Artery/Lesion type: [place] artery [place] vs. transplanted heart: [place] heart Associated angina: without angina Hypertension I10 Hypertension type: essential hypertension Hypercholesterolemia E78.00 Aortic stenosis I35.0 PAF (paroxysmal atrial fibrillation) I48.0 Closed fracture of right hip S72.001A Encounter type: initial encounter (1) CAD (coronary artery disease) Coronary Disease-Associated Artery/Lesion type: [place] artery [place] vs. transplanted heart: [place] heart Associated angina: without angina Qualified Code(s): I25.10 - Atherosclerotic heart disease of [place] coronary artery without angina pectoris (2) Hypertension Hypertension type: essential hypertension Qualified Code(s): I10 - Essential (primary) hypertension (3) Closed fracture of right hip Encounter type: initial encounter Qualified Code(s): S72.001A - Fracture of unspecified part of neck of right femur, initial encounter for closed fracture
[2019-06-09] MEDS: RIVAROXABAN 20 MG TAB PO SCH (15:43)
--- NOTE | 2019-06-09 16:39 | Discharge Summary ---
Date of Service June 09, 2019 Admission HPI Per Admitting Provider This is a 73-year-old male with past medical history of paroxysmal A. fib on Xarelto, HTN, HLD, CAD, COPD, current tobacco use with 50 pack year hx, hypokalemia, psoriasis who presents after fall sustained resulting in a right transcervical fracture of the right femur as well as a right distal radius fracture. The patient notes that he was outside attempting to pickler helper some soda cans in his yard earlier this afternoon, when he lost his balance and fell in the yard. He had significant difficulty getting up and so layed in his yard for about 30 minutes. He was eventually able to crawl through the yard to his p arked car, and get inside it. He called his who then notified EMS. He also notes that he was in this morning for a routine cardiology appointment, where he reviewed his holter monitor results with Dr. Dinero. He was given a Rx for Xarelto, but has not yet started taking this medication yet. He takes all other medications on the list routinely. Upon presentation to the ER the patient was found to be in A. fib with RVR with a heart rate of 130 as documented by EKG and is the same while at bedside. Principal Diagnosis Pathological fracture of right hip due to fall Discharge Exam Constitutional WD/WN, vitals as above Eyes PERRL, conjunctivae normal, anicteric sclerae ENMT external ear and nose normal, oropharynx normal Neck trachea midline, no thyromegaly Respiratory normal respiratory effort, lungs clear to auscultation Cardiovascular Rate/Rhythm: regular rate and + bradycardic Heart Sounds: normal S1, normal S2 and + murmur (systolic) Vessels: no JVD Extremities: normal capillary refill; no edema Gastrointestinal (Abdomen) normal bowel sounds, soft, nontender, no hepatosplenomegaly Musculoskeletal Head/Neck/Chest: normocephalic and head atraumatic Extremities: + extremities abnormal to inspection (right forearm cast), no muscle atrophy, no cyanosis and no clubbing Gait: + limp Hip: + hip abnormal to inpsection (right) Skin no rashes, warm and dry Neurologic patellar DTR's 2+ bilat, sensation intact and PERRL, EOMI, accommodation nl, no face palsy, no dysarthria Psychiatric A+Ox3, euthymic affect Lymphatic no cervical or axillary lymphadenopathy Discharge Data Allergies Allergy/AdvReac Type Severity Reaction Status Date / Time Penicillins Allergy Unknown ` Verified 06/01/19 18:11 Consultations 06/01/19 18:09 ED Decision to Admit Stat 06/01/19 19:53 Consult Case Management - Discharge Planning Routine Consult Case Management - Discharge Planning Routine Consult Orthopedic Surgery Routine 06/02/19 09:57 Consult Cardiology Routine 06/02/19 18:19 Consult Case Management - Discharge Planning Routine Procedures Performed Operation Date: 06/02/19 08:50 Actual Procedures p Right Total Hip Arthroplasty and Casting of Right distal radius fracture(Right) - Marcus Haines MD Hospital Course (1) Closed right hip fracture: Secondary to mechanical fall onto his driveway after slipping Likely osteoporosis with current pathological fracture, R femur and R radius - Ortho consulted-appreciate management-now status post right hybrid total hip arthroplasty for displaced femoral neck fracture on 06/02 Overall improving from Ortho standpoint less pain, increased mobility, ambulated with walker today -Continue pain management with Tylenol [id number], oxycodone prn -Continue bowel regimen, he is moving bowels -DVT prophylaxis with Xarelto 20 mg daily (for Afib also) -Hemoglobin dropped slightly but stabilized PT/OT evaluations-orthopedics reports he is allowed to fully weight-bear as tolerated in the right leg plan for rehab, would be medically ready tomorrow continue with PT/OT (2) Right radial fracture: - Imaging reviewed showing cortical irregularity of the distal radial metaphysis is suggestive of a subtle acute nondisplaced fracture with mild associated soft tissue swelling. -He is now status post casting of a right distal radius fracture on 06/02 -pain control prn as above -Orthopedics recommends he can use his right arm for weightbearing and walker assistance and would probably benefit from a platform walker given his hip fracture as above (3) Atrial fibrillation with RVR: - in rapid afib on admission, then converted to sinus bradycardia prior to surgery on 06/02 Recently had event monitor as an outpatient which revealed frequent rapid afib with rates into the 140s-170s at times and was seen by cardiology on the day of admission-recommendation was to start p.o. amiodarone and Xarelto at that time -He was then in rapid atrial fibrillation since the afternoon of 2/12 -rates initially in the 160s, then improved but remain 100-130s despite IV amiodarone and IV lopressor, po metoprolol low dose Added on digoxin-loaded on 06/04 and discontinued IV amiodarone Converted to sinus rohan on AM of 06/05 and then in and out of MANPREET alternating with SB since then Likely driven by catecholamines today, 06/08, rates in the 50's discussed with Dr. Mejia, prefer rhythm control because he is symptomatic from atrial fibrillation continue Amiodarone 200mg BID, low dose digoxin and continue metoprolol continue Xarelto for anticoagulation discussed with Dr. Mejia, no need for further hospitalization from cardiology perspective (4) COPD (chronic obstructive pulmonary disease): With mild exacerbation on admission, requiring O2 Diminished air movement throughout but is now improving -dyspnea improved but remains on supplemental O2 at times -continue Duonebs as needed -continue O2 to keep POx 88-92% - Currently smoking 1 ppd x 51 years-encouraged cessation refusing nicotine patch says he is committed to quitting (5) Abnormal ECG: Anterolat ST depressions with rapid Afib on admission -trop mildly elevated at 0.131, no chest pain Repeat ECG the morning after admission then with sinus rohan, no further ST depressions Echocardiogram with mild LVH, at least moderate aortic stenosis, no wall motion abnormalities and preserved LV function likely demand ischemia from RVR, no further work up planned (6) CAD (coronary artery disease): With a h/o inferior wall OR and RANJAN to the RCA in 11/[address] depression on admission ECG in setting of Rapid Afib -trop mildly elevated 0.131 but likely demand ischemia -no chest pain now or on admission -Continue ASA 81 mg -Will continue to hold Imdur for hypotension -Continue metoprolol tartrate BID -Continue simvastatin -Continue to hold lisinopril for hypotension (7) Demand ischemia of myocardium: as above, trop mildly elevated, due to rapid Afib in setting of known CAD (8) Acute respiratory failure with hypoxia: secondary to COPD exacerbation as above -wean off supplemental O2 as able to, but likely seems he will need O2 at discharge can continue this at [facility] (9) Vitamin D deficiency: Vit D level only 7 -started Vit D 1000 units po qAM -needs DEXA scan within 6 months for osteoporotic fractures and Vit D deficiency (10) Psoriasis: Pt with diffuse macular rash with excoriations. He tells me he has eczema based on biopsy [facility], NOT psoriasis No current treatment -suspect possible Staph infection -is getting Clinda for preop abx and would refer to DERM after discharge (11) Hypercholesterolemia: -Continue simvastatin 40 mg HS (12) Hypertension: With hypotension postoperatively due to acute blood loss anemia, rapid atrial fibrillation BPs now much improved -continue to hold lisinopril and Imdur -Give metoprolol with hold parameters for atrial fibrillation -Was given gentle normal saline IV fluid boluses as needed for low blood pressures-none further needed Continue to monitor blood pressure (13) Aortic stenosis: at least moderate follow as outpt (14) Acute blood loss anemia: with hgb drop as above after fracture and surgery, now stable no need for transfusion hemodynamic instability related to rapid Afib now resolved -follow CBC periodically (15) DVT prophylaxis: -Teds, SCDs, Xarelto CODE STATUS: Full Disposition: continue tele PT/OT will continue to work with him daily Referrals have been made to rehab facility If heart rates remain stable, hopeful can apply for insurance auth for rehab on Saturday Discharge Plan Discharge Items Patient Disposition: Transfer Inpatient Rehab Fac Reason For Visit: R HIP FRACTURE,R RADIUS FRACTURE Discharge Diagnosis: Right Hip Replacement for hip fracture Right wrist fracture Condition on Discharge: Good Goals: improve strength and mobility continue to stay well hydrated, well nourished follow up with Dr. Mejia for atrial fibrillation Activity: Per Instructions section Activity Comment: May weightbear as tolerated following hip precautions Bathing Comment: May shower, no bath, keep cast dry Exercise/Sports: Gradually increase as tolerated Weightbearing: Full weightbearing Weightbearing Comment: Weightbear as tolerated obeying hip precautions Non-emergency contact: Surgeon Call non-emergency contact if: you have any medication questions, your symptoms worsen, your pain is not controlled and you have a fever Follow-up/Referrals: Mingo Dinero MD [Primary Care Provider] - Marcus Haines MD [Physician] - (Orthopedic follow-up 2-3 weeks from surgery date.) Diet: Heart Healthy Addtl Attending Provider Instructions: Medications: please note the changes that were made - METOPROLOL: stop this medication, per cardiology - IMDUR: stop this medication as blood pressure low normal - LISINOPRIL: stop this medication as blood pressure low normal - OXYCODONE: use as needed for pain - VITAMIN D: continue daily supplementation due to low Vitamin D level Paroxysmal atrial fibrillation currently in sinus rhythm, sinus bradycardia for several days did experience some afib with RVR while here [place] [facility] [place], evaluated by Dr. Mejia plan at this time is to maintain rhythm control, use Amiodarone 200mg BID continue with Xarelto for anticoagulation no longer on Metoprolol due to sinus bradycardia has follow up appt with Dr. Dinero on June 24, keep this appt Hypertension: previously on metoprolol, Imdur, Lisinopril has been stable off of the Imdur and Lisinopril was on the metoprolol but Dr. Mejia wants to hold metoprolol going forward will continue to hold all medications, if he becomes hypertensive with rehab, resume Imdur Pathological osteoporotic fracture of hip and radius continue Vitamin D supplementation ACTIVITY RECOMMENDATIONS: Physical Therapy: * Aggressive physical therapy is not usually needed. You will learn to take care of yourself safely and walk. * Follow the "Hip Precautions Instructions." * In some cases, the certified social workers in health care at the hospital will arrange to have a therapist come to your house for the first couple of weeks to help you learn these skills. * You need to practice on your own or with the help of a family member as needed. * When you learn these skills, most of the therapy can be done on your own. Home Exercise: * You were shown a series of exercises in the hospital. Do these exercises three to four times each day including the exercises you were shown in physical the rapy. Walking: * Get up and walk several times each day. For the first four weeks, try not to stand or walk for more than one hour at a time. If you do stand or walk for more than one hour, you will not hurt anything, but your leg will likely swell. * As you feel comfortable, you may change from the walker or crutches to a cane and then to independent walking. MEDICATIONS: New Medicine: * The most common side effects of pain medicine and iron are nausea and constipation. If nausea or constipation is too much of a problem or if you have any questions about your new medicines or doses, call [facility] at . We will try to help you manage these issues. "VERY IMPORTANT TO READ AND REVIEW" Pain: * The immediate post-operative period after hip replacement surgery is often quite painful. * You are given a prescription for pain medicine. You should take it, as directed, when you need it, especially before physical therapy and before going to bed. Pain that interferes with sleep is very common and can last several months. * You will likely need pain medicine for the first two to four weeks. It will not stop all of the pain. The pain will lessen and as you feel better, you may change to milder pain medicine such as Tylenol. * The most common side effects of pain medicine are nausea and constipation, so don't take more than you need. SPECIAL CARE INSTRUCTIONS: TEDs/Elastic Stockings: * The white elastic stockings help limit swelling and prevent blood clots from forming in your legs. The more you wear them, the more they work. * Wear them for six weeks. Prevention of Infection: * Take antibiotics one hour before any dental cleaning, dental work, urological procedure, gastrointestinal procedure or any invasive surgery in order to prevent your new joint from getting infected. * You may get the antibiotics from the doctor performing the procedure or you may call our office at before and we will call in a prescription to the pharmacy of your choice. Things to Watch For: * Drainage from the incision site that occurs more than one week after your surgery. * Severely increased leg pain or swelling. * Increased redness at the incision site. * Fever above 102 degrees Fahrenheit. * Unusual chest pain or shortness of breath. * Unusual pain or burning with urination. Call [facility] at with any of the above problems or if you have any questions about your medicines or recovery. FOLLOW UP VISIT: Make an appointment to see your doctor for approximately two weeks after surgery for a progress check and staple removal by calling the office at . Pending Studies at Discharge: No Stand-Alone Forms: My [facility] Skilled Items Patient informed of condition?: Yes DNR: No Discharge Level of Care: Acute rehab Communicable Disease: No Discharge Prognosis: Improving Lines: None Urinary Catheter: No Medications and DC Order Prescriptions: New oxycodone 5 mg Tablet 5 mg PO Q4H PRN (Reason: pain) 20 Days Qty: 30 RF: 0 cholecalciferol (vitamin D3) 25 mcg (1,000 unit) Capsule 1,000 unit PO QAM 30 Days Qty: 30 RF: 3 Continued amiodarone 200 mg tablet 200 mg PO BID Qty: 60 RF: 3 Xarelto 20 mg tablet 20 mg PO DAILY Qty: 90 RF: 3 aspirin [Aspir-81] 81 mg Tablet,Delayed Release (Dr/Ec) 81 mg PO QAM RF: 0 simvastatin 40 mg Tablet 40 mg PO HS RF: 0 Symbicort 160-4.5 mcg/actuation Hfa Aerosol Inhaler 2 puff INHALATION BID PRN (Reason: Shortness Of Breath Or Wheezing) RF: 0 Discontinued metoprolol succinate 50 mg tablet extended release 24 hr 25 mg PO BID RF: 0 lisinopril 20 mg tablet 20 mg PO QAM RF: 0 isosorbide mononitrate 30 mg tablet extended release 24 hr 30 mg PO QAM RF: 0 Discharge Orders: Discharge Order (Routine); Ordered 06/09/19 Ordered By: August Aguilar Admission Data Admit Date/Time: 06/01/19 18:29 Attending Provider: August Aguilar Admit Provider: Amanda Noriega Primary Care Provider: Mingo Dinero Other Providers: [facility] ; Annamarie Jules at [facility] ; Hakan Noriega ; Alexander Cole ; Brett Mejia Other Interventions: Discharge Summary Assessment (RN) Last Done: 06/09/19 16:00 Coding Diagnoses Closed right hip fracture S72.001A Right radial fracture S52.91XA Atrial fibrillation with RVR I48.91 COPD (chronic obstructive pulmonary disease) J44.9 COPD type: unspecified COPD Abnormal ECG R94.31 CAD (coronary artery disease) I25.10 Coronary Disease-Associated Artery/Lesion type: [place] artery [place] vs. transplanted heart: [place] heart Associated angina: without angina Demand ischemia of myocardium I24.8 Acute respiratory failure with hypoxia J96.01 Vitamin D deficiency E55.9 Psoriasis L40.9 Hypercholesterolemia E78.00 Hypertension I10 Hypertension type: essential hypertension Aortic stenosis I35.0 Acute blood loss anemia D62 DVT prophylaxis Z29.9
== END 2019-06-09 17:10 | DRG 469 ==
LOC: ED 16:17 → SUATTDRO 18:29 → 2N 18:29 → 2E 06-03 16:59

== ENCOUNTER 2024-05-29 10:24 | Inpatient (IN) ==
[2024-05-29 10:42] VITALS: TEMP 97.5
[2024-05-29 10:57] LABS: Basophils # (auto) 0.03 K/uL (0.00-0.20); Basophils % (auto) 0.2 %; Eosinophils # (auto) 0.03 K/uL (0.00-0.50); Eosinophils % (auto) 0.2 %; Hematocrit (blood only) 38.5 % (42.0-52.0); Hemoglobin 11.2 g/dl (14.0-18.0); Immature Granulocytes # (auto) 0.06 K/uL (0.01-0.20); Immature Granulocytes % (auto) 0.4 %; Lymphocytes # (auto) 1.31 K/uL (1.20-3.40); Lymphocytes % (auto) 9.4 %; Mean Corpuscular Hemoglobin 23.9 pg (25.0-34.0); Mean Corpuscular Hgb Conc 29.1 g/dL (32.0-36.0); Mean Corpuscular Volume 82.3 fL (80.0-100.0); Mean Platelet Volume 10.3 fL (9.4-12.4); Monocytes # (auto) 1.54 K/uL (0.11-0.59); Monocytes % (auto) 11.1 %; Neutrophils # (auto) 10.93 K/uL (1.40-6.50); Neutrophils % (auto) 78.7 %; Platelet Count 272 K/uL (130-400); RDW Coefficient of Variation 15.9 % (11.5-14.5); RDW Standard Deviation 47.3 fL (36.4-46.3); Red Blood Count 4.68 M/uL (4.70-6.10)
[2024-05-29] MEDS: methylPREDNISolone 125 MG/2 ML VIAL IV STA (10:57)
--- NOTE | 2024-05-29 11:00 | XRay Report ---
XR chest 1V portable CLINICAL HISTORY: Chest pain, nonspecific COMPARISON STUDY: 06/01/2019 FINDINGS: Stable mild cardiomegaly without pulmonary vascular congestion. Stable hyperexpanded lungs. No effusion, consolidation, or pneumothorax. IMPRESSION: No acute findings ACT 112: Negative or not required by law. Electronically signed by: Renny Sullivan M.D. 05/29/2024 10:59 AM
[2024-05-29 11:05] LABS: iSTAT Creatinine 1.2 mg/dl (0.6-1.3); iSTAT Hemoglobin 12.9 g/dl (14.0-18.0); iSTAT Ionized Calcium 1.1 mmol/l (1.12-1.32); iSTAT Potassium 4.1 mmol/L (3.3-5.0)
[2024-05-29 11:08] LABS: Base Excess VBG 4.2 mEq/L; HCO3 VBG 34 mmol/L; Oxygen Saturation VBG < 60.0 %; PCO2 VBG 80 mmHg (38-50); PO2 VBG 36 mmHg; pH VBG 7.24 (7.36-7.41)
--- NOTE | 2024-05-29 11:12 | Emergency Department Note ---
Impression & Plan Atrial fibrillation with rapid ventricular response, Demand ischemia of myocardium, Acute respiratory failure with hypoxia, Acute hypercapnic respiratory failure, Acute exacerbation of chronic obstructive pulmonary disease (COPD) ED Provider Note NAME: PADDY FRYE AGE: 78 SEX: M : 1945 ARRIVES VIA: Ambulance INFORMANT: Patient, ED PROVIDER(S): Aleksey Fish MD CHIEF COMPLAINT: Chest tightness, chest pain, shortness of breath HPI: This is a 78-year-old male with history of CAD, A-fib presenting for shortness of breath and chest pain. Patient notes chest pain on the left side rating to his left arm/neck. He no shortness of breath that started last night, exertional. He notes history of COPD and does smoke. Otherwise he does take a blood thinner but cannot member the name. He reports no fevers, chills, nausea or vomiting recently. He reports 8/10 chest pain. ROS: See above HPI for pertinent positives & negatives. A total of 10 systems reviewed and were otherwise negative. PAST MEDICAL HISTORY: See Below PAST SURGICAL HISTORY: See Below FAMILY HISTORY: See Below SOCIAL HISTORY: See Below HOME MEDICATIONS: See Below ALLERGIES: See Below VITALS: See Below PHYSICAL EXAMINATION: General: uncomfortable appearing Head: Normocephalic and atraumatic Eyes: Normal inspection, extraocular muscles intact Ear, nose, throat: Normal external exam Neck: Normal range of motion Respiratory: Diminished in all lung nicolas Cardiovascular: Regular rate/rhythm, no murmur GI: soft, nontender, no guarding or rebound Extremities: nontender, moves all extremities Neuro: The patient awake and alert, appropriately conversive, no focal deficits, symmetric faces Skin: Warm, dry, and intact MEDICAL DECISION MAKING: This is a 78-year-old male history of CAD and A-fib presented for shortness of breath/chest pain. Patient is A-fib RVR with rates between 120 and 160. He was given aspirin, nitro and DuoNeb en route by EMS. He is hypoxic to 88% on room air. Requiring 2 L. Blood pressure is 110/80 at this time. Patient does mention takes a blood thinner but does not quantify when he he last took this at this time of the name of it.. He appears to be a poor historian overall -Blood work does reveal slight leukocytosis with stable anemia. Patient's VBG is ordered and showing slight acidosis, 7.24 with CO2 of 80 -Patient currently A-fib with RVR as well as chest pain. His EKG is fairly ischemic appearing. Concern for demand ischemia clinically. Will try lev albuterol to minimize tachycardia. He does have significantly poor air movement at this time. -ECG independently interpreted by me with atrial fibrillation with RVR at a rate of 152, normal QRS, normal QTc, no ST segment elevations consistent with STEMI criteria, significant ST depressions in the inferior lateral leads concerning for ischemia -Patient's heart rate is downtrending here now in the 100s to 120s. Repeat EKG is somewhat improved but still showing ST depressions -He second ECG independently interpreted by me with atrial fibrillation with RVR rate of 113normal QRS], normal QTc, no ST segment elevations consistent with STEMI criteria, improved ST depressions in the inferior/lateral leads -Due to hypoxia, tachycardia, CTA was ordered to rule out PE as patient is unclear when his last blood thinner use was. -No PE is noted, emphysema is noted, there is cardiomegaly with mild pulmonary edema -Patient will be started on BiPAP due to his COPD, hypercarbia. -Patient's troponin is elevated at over 1100. -Concern for NSTEMI versus demand ischemia. Will start on heparin. -Discussed care with hospitalist, Dr. Mcfadden who recommends discussion with cardiology -Discussed care with Dr. Fernando, cardiology, who recommends amiodarone for rate/rhythm control. He states heparin can be administered. -Patient admitted to hospital service, Dr. Mcfadden at this time Differential diagnosis: STEMI, NSTEMI, demand ischemia, COPD, PE Independent History obtained from: Son and Diagnostics interpreted by me: ECG: See above Cardiac Monitoring: An order was placed for continuous cardiac monitoring. The monitor shows a rate of 122 with atrial fibrillation rhythm. Critical Care Note: I have personally spent 35 minutes of critical care time in the direct management of this patient. This includes bedside care, interpretation of diagnostic studies, and testing, discussion with consultants, patient, and family members, and other required patient management activities. This 35 minutes is in excess of all separately billable procedures. Past Med/Surg History Problem List (Updated 05/29/24 @ 17:04 by Aleksey Fish MD) Atrial fibrillation with rapid ventricular response (Acute) Demand ischemia of myocardium (Acute) Severe aortic stenosis Acute exacerbation of chronic obstructive pulmonary disease (COPD) (Acute) Paroxysmal atrial fibrillation with RVR Acute hypercapnic respiratory failure (Acute) Stented coronary artery Peripheral eosinophilia Carotid artery stenosis Tibial plateau fracture, right Cerebrovascular disease Multiple pulmonary nodules Right wrist fracture Nocturnal hypoxia Current smoker Allergic rhinitis History of right hip replacement PAF (paroxysmal atrial fibrillation) Aortic stenosis Acute respiratory failure with hypoxia (Acute) Vitamin D deficiency Palpitations Diverticulitis (Acute) Abscess (Acute) Hypokalemia (Acute) COPD (chronic obstructive pulmonary disease) (Chronic) Hypertension (Chronic) CAD (coronary artery disease) (Chronic) Medical History (Updated 05/29/24 @ 17:04 by Aleksey Fish MD) Right radial fracture Closed right hip fracture Psoriasis Past myocardial infarction Male erectile disorder of organic origin Aneurysm of abdominal aorta Closed fracture of right hip Psoriasis Dyslipidemia Hypertension History of left heart catheterization CAD (coronary artery disease) COPD (chronic obstructive pulmonary disease) Abscess Diverticulitis Surgical History History of cataract surgery Family History Father Myocardial infarction Social History Smoking Status: Current every day smoker Tobacco Type: Cigarettes packs per day: 1; Cigarettes Per Day: 3; Second Hand Exposure: No; Do You Dip or Chew Tobacco: No; Hx Alcohol Use: No Hx Substance Use: No Preferred Language: Vietnamese Communication Ability: Effective Beliefs That Will Affect Care: None marital status: Current Living Situation: Spouse Feels Safe at Home: Yes Assistive Devices: Oxygen - Continuous Allergies Allergies Allergy/AdvReac Type Severity Reaction Status Date / Time Penicillins Allergy Unknown ` Verified 05/29/24 13:33 Home Meds Home Medications Medication Instructions Recorded Confirmed aspirin 81 mg tablet,delayed 81 mg PO DAILY 05/29/24 05/29/24 release cetirizine 10 mg tablet 10 mg PO DAILY PRN Itchy skin 05/29/24 05/29/24 cholecalciferol (vitamin D3) 25 25 mcg PO DAILY 05/29/24 05/29/24 mcg (1,000 unit) tablet (Vitamin D3) diltiazem HCl 30 mg tablet 30 mg PO TID 05/29/24 05/29/24 fluticasone 500 mcg-salmeterol 50 0 inh inhalation BID 05/29/24 05/29/24 mcg/dose blistr powdr for inhalation nitroglycerin 0.4 mg sublingual 0.4 mg sublingual DAILY PRN Chest 05/29/24 05/29/24 tablet Pain omeprazole 20 mg capsule,delayed 20 mg PO DAILY 05/29/24 05/29/24 release rivaroxaban 20 mg tablet (Xarelto) 0 mg PO DAILY 05/29/24 05/29/24 Previous Rx's Medication Instructions Recorded Miscellaneous Pulmonary Supply #1 ea 08/16/20 albuterol sulfate 90 mcg/actuation 2 inh inhalation Q6H PRN Shortness 02/18/24 aerosol inhaler Of Breath Or Wheezing #18 grams Results & Data (ED) Vital Signs Vital Signs - 24 hr 05/29/24 10:32 05/29/24 10:32 05/29/24 10:45 Temperature 36.4 C L Temperature Source Oral Pulse Rate 119 H 115 H Pulse Rate [Apical] Pulse Rate from SpO2 Sensor 123 H Respiratory Rate 22 22 Respiratory Effort / Characteristics Short of Breath SOB on Exertion Short of Breath SOB on Exertion Respiratory Depth Shallow Respiratory Pattern Blood Pressure 123/79 Blood Pressure [Left Arm] Blood Pressure Mean 93 Blood Pressure Mean [Left Arm] Pulse Oximetry 88 L 93 Oxygen Delivery Method Room Air Nasal Cannula Oxygen Flow Rate 2 Fraction of Inspired Oxygen Sepsis Recent Fever Within 48 Hours No Sepsis New/Unexplained Change in Mental Status No Sepsis Action Taken by Nursing Physician Notified Oxygen Flow Rate - Titration Pulse Oximetry Post Tiitration 05/29/24 10:46 05/29/24 10:52 05/29/24 10:52 Temperature Temperature Source Pulse Rate Pulse Rate [Apical] 120 H Pulse Rate from SpO2 Sensor Respiratory Rate 28 H Respiratory Effort / Characteristics Respiratory Depth Respiratory Pattern Blood Pressure 101/75 Blood Pressure [Left Arm] 101/75 Blood Pressure Mean 78 Blood Pressure Mean [Left Arm] 83 Pulse Oximetry 88 L 92 Oxygen Delivery Method Nasal Cannula Nasal Cannula Oxygen Flow Rate 0 2 Fraction of Inspired Oxygen Sepsis Recent Fever Within 48 Hours Sepsis New/Unexplained Change in Mental Status Sepsis Action Taken by Nursing Oxygen Flow Rate - Titration 2 Pulse Oximetry Post Tiitration 92 05/29/24 10:53 05/29/24 11:00 05/29/24 11:00 Temperature Temperature Source Pulse Rate 143 H 114 H Pulse Rate [Apical] Pulse Rate from SpO2 Sensor 127 H Respiratory Rate 22 Respiratory Effort / Characteristics Respiratory Depth Respiratory Pattern Blood Pressure 110/80 Blood Pressure [Left Arm] Blood Pressure Mean 93 Blood Pressure Mean [Left Arm] Pulse Oximetry 92 92 Oxygen Delivery Method Nasal Cannula Oxygen Flow Rate 2 Fraction of Inspired Oxygen Sepsis Recent Fever Within 48 Hours Sepsis New/Unexplained Change in Mental Status Sepsis Action Taken by Nursing Oxygen Flow Rate - Titration Pulse Oximetry Post Tiitration 05/29/24 11:15 05/29/24 11:15 05/29/24 11:15 Temperature Temperature Source Pulse Rate 114 H Pulse Rate [Apical] Pulse Rate from SpO2 Sensor 104 H Respiratory Rate 21 Respiratory Effort / Characteristics Respiratory Depth Respiratory Pattern Blood Pressure 112/82 112/82 Blood Pressure [Left Arm] Blood Pressure Mean 91 91 Blood Pressure Mean [Left Arm] Pulse Oximetry 94 Oxygen Delivery Method Oxygen Flow Rate Fraction of Inspired Oxygen Sepsis Recent Fever Within 48 Hours Sepsis New/Unexplained Change in Mental Status Sepsis Action Taken by Nursing Oxygen Flow Rate - Titration Pulse Oximetry Post Tiitration 05/29/24 11:32 05/29/24 11:33 05/29/24 11:39 Temperature Temperature Source Pulse Rate 153 H 130 H Pulse Rate [Apical] 132 H Pulse Rate from SpO2 Sensor 143 H 129 H Respiratory Rate 25 H 16 15 Respiratory Effort / Characteristics Non-Labored Spontaneous Respiratory Depth Normal Respiratory Pattern Regular Blood Pressure Blood Pressure [Left Arm] 112/82 Blood Pressure Mean Blood Pressure Mean [Left Arm] 92 Pulse Oximetry 97 91 100 Oxygen Delivery Method Nasal Cannula Oxygen Flow Rate 2 Fraction of Inspired Oxygen Sepsis Recent Fever Within 48 Hours Sepsis New/Unexplained Change in Mental Status Sepsis Action Taken by Nursing Oxygen Flow Rate - Titration Pulse Oximetry Post Tiitration 05/29/24 11:45 05/29/24 12:00 05/29/24 12:03 Temperature Temperature Source Pulse Rate 137 H 143 H Pulse Rate [Apical] Pulse Rate from SpO2 Sensor 126 H Respiratory Rate 18 Respiratory Effort / Characteristics Respiratory Depth Respiratory Pattern Blood Pressure 104/87 Blood Pressure [Left Arm] Blood Pressure Mean 92 Blood Pressure Mean [Left Arm] Pulse Oximetry 98 Oxygen Delivery Method Oxygen Flow Rate Fraction of Inspired Oxygen Sepsis Recent Fever Within 48 Hours Sepsis New/Unexplained Change in Mental Status Sepsis Action Taken by Nursing Oxygen Flow Rate - Titration Pulse Oximetry Post Tiitration 05/29/24 12:07 05/29/24 12:15 05/29/24 12:15 Temperature Temperature Source Pulse Rate 122 H Pulse Rate [Apical] Pulse Rate from SpO2 Sensor Respiratory Rate 19 Respiratory Effort / Characteristics Non-Labored Spontaneous Respiratory Depth Normal Respiratory Pattern Regular Blood Pressure 99/81 L 99/81 L Blood Pressure [Left Arm] Blood Pressure Mean 84 84 Blood Pressure Mean [Left Arm] Pulse Oximetry 99 Oxygen Delivery Method Oxygen Flow Rate Fraction of Inspired Oxygen 30 Sepsis Recent Fever Within 48 Hours Sepsis New/Unexplained Change in Mental Status Sepsis Action Taken by Nursing Oxygen Flow Rate - Titration Pulse Oximetry Post Tiitration 05/29/24 12:21 05/29/24 12:30 05/29/24 12:39 Temperature Temperature Source Pulse Rate 113 H 132 H 139 H Pulse Rate [Apical] Pulse Rate from SpO2 Sensor 121 H 106 H 127 H Respiratory Rate 13 21 16 Respiratory Effort / Characteristics Respiratory Depth Respiratory Pattern Blood Pressure Blood Pressure [Left Arm] Blood Pressure Mean Blood Pressure Mean [Left Arm] Pulse Oximetry 100 97 99 Oxygen Delivery Method Oxygen Flow Rate Fraction of Inspired Oxygen Sepsis Recent Fever Within 48 Hours Sepsis New/Unexplained Change in Mental Status Sepsis Action Taken by Nursing Oxygen Flow Rate - Titration Pulse Oximetry Post Tiitration 05/29/24 12:46 05/29/24 12:46 05/29/24 12:54 Temperature Temperature Source Pulse Rate 127 H Pulse Rate [Apical] Pulse Rate from SpO2 Sensor 132 H Respiratory Rate 22 Respiratory Effort / Characteristics Respiratory Depth Respiratory Pattern Blood Pressure 103/89 103/89 Blood Pressure [Left Arm] Blood Pressure Mean 95 95 Blood Pressure Mean [Left Arm] Pulse Oximetry 99 Oxygen Delivery Method Oxygen Flow Rate Fraction of Inspired Oxygen Sepsis Recent Fever Within 48 Hours Sepsis New/Unexplained Change in Mental Status Sepsis Action Taken by Nursing Oxygen Flow Rate - Titration Pulse Oximetry Post Tiitration 05/29/24 13:00 05/29/24 13:00 05/29/24 13:01 Temperature Temperature Source Pulse Rate 123 H Pulse Rate [Apical] 112 H Pulse Rate from SpO2 Sensor 123 H Respiratory Rate 23 Respiratory Effort / Characteristics Respiratory Depth Respiratory Pattern Blood Pressure 100/80 Blood Pressure [Left Arm] Blood Pressure Mean 82 Blood Pressure Mean [Left Arm] Pulse Oximetry 98 Oxygen Delivery Method Oxygen Flow Rate Fraction of Inspired Oxygen Sepsis Recent Fever Within 48 Hours Sepsis New/Unexplained Change in Mental Status Sepsis Action Taken by Nursing Oxygen Flow Rate - Titration Pulse Oximetry Post Tiitration 05/29/24 13:06 05/29/24 13:15 Temperature Temperature Source Pulse Rate 115 H Pulse Rate [Apical] Pulse Rate from SpO2 Sensor 112 H Respiratory Rate 18 Respiratory Effort / Characteristics Respiratory Depth Respiratory Pattern Blood Pressure 92/73 L Blood Pressure [Left Arm] Blood Pressure Mean 84 Blood Pressure Mean [Left Arm] Pulse Oximetry 98 Oxygen Delivery Method Oxygen Flow Rate Fraction of Inspired Oxygen Sepsis Recent Fever Within 48 Hours Sepsis New/Unexplained Change in Mental Status Sepsis Action Taken by Nursing Oxygen Flow Rate - Titration Pulse Oximetry Post Tiitration Laboratory Data 05/29/24 10:37 05/29/24 10:37 Lab Results 05/29/24 05/29/24 05/29/24 Range/Units 10:35 10:37 10:46 WBC 13.90 H (4.8-10.8) K/ul RBC 4.68 L (4.70-6.10) M/uL Hgb 11.2 L (14.0-18.0) g/dl POC Hgb (14.0-18.0) g/dl Hct 38.5 L (42.0-52.0) % POC Hct (42-52) % MCV 82.3 (80.0-100.0) fL MCH 23.9 L (25.0-34.0) pg MCHC 29.1 L (32.0-36.0) g/dL RDW Std Deviation 47.3 H (36.4-46.3) fL RDW Coeff of Ike 15.9 H (11.5-14.5) % Plt Count 272 (130-400) K/uL MPV 10.3 (9.4-12.4) fL Immature Gran % (Auto) 0.4 % Neut % (Auto) 78.7 % Lymph % (Auto) 9.4 % Meade % (Auto) 11.1 % Eos % (Auto) 0.2 % Baso % (Auto) 0.2 % Neut # (Auto) 10.93 H (1.40-6.50) K/uL Lymph # (Auto) 1.31 (1.20-3.40) K/uL Meade # (Auto) 1.54 H (0.11-0.59) K/uL Eos # (Auto) 0.03 (0.00-0.50) K/uL Baso # (Auto) 0.03 (0.00-0.20) K/uL Immature Gran # (Auto) 0.06 (0.01-0.20) K/uL PT (9.0-12.0) Seconds INR (0.9-1.1) APTT (21-31) Seconds PTT Ratio VBG pH 7.24 L (7.36-7.41) VBG pCO2 80 H (38-50) mmHg VBG pO2 36 mmHg VBG HCO3 34 mmol/L VBG O2 Saturation < 60.0 % VBG Base Excess 4.2 mEq/L POC Sodium (135-144) mmol/L Sodium 139 (136-145) mmol/L POC Potassium (3.3-5.0) mmol/L Potassium 4.2 (3.5-5.1) mmol/L POC Chloride (101-112) mmol/L Chloride 98 (98-107) mmol/L Carbon Dioxide 34 H (21-32) mmol/L POC Total CO2 (24-31) mmol/L Anion Gap 7 (3-11) POC Anion Gap (16-25) mmol/L POC BUN (7-18) mg/dl BUN 22 (6-23) mg/dl Creatinine 1.03 (0.6-1.4) mg/dl POC Creatinine (0.6-1.3) mg/dl Est Cr Clr Drug Dosing 72.3 ml/min eGFR 75.28 BUN/Creatinine Ratio 21.4 H (10-20) Glucose 131 H (70-99(Fasting)) mg/dl POC Glucose (other) (70-99) mg/dl Calcium 9.9 (8.6-10.3) mg/dl POC Ioniz Calcium Gloria (1.12-1.32) mmol/l Magnesium (1.7-2.4) mg/dl Total Bilirubin 0.8 (0.2-1.0) mg/dl AST 25 (13-39) U/L ALT 15 (7-52) U/L Alkaline Phosphatase 81 (34-104) U/L Troponin I High Sens 1129.2 H* (0-20) pg/ml Total Protein 7.1 (6.0-8.3) gm/dl Albumin 3.8 (3.4-5.0) gm/dl Globulin 3.3 (2.5-4.0) gm/dl Albumin/Globulin Ratio 1.2 (0.9-2) Lipase 5 L (11-82) U/L Procalcitonin 0.05 (0-0.5) ng/ml Adenovirus (PCR) Not Detected (NotDetected) B. pertussis DNA (PCR) Not Detected (NotDetected) B.parapertussis DNA PCR Not Detected (NotDetected) C. pneumoniae DNA (PCR) Not Detected (NotDetected) Coronavirus OC43 (PCR) Not Detected (NotDetected) Coronavirus HKU1 (PCR) Not Detected (NotDetected) Coronavirus 229E (PCR) Not Detected (NotDetected) SARS-CoV-2 (PCR) Not Detected (NotDetected) Coronavirus NL63 (PCR) Not Detected (NotDetected) Human Metapneumovir PCR Not Detected (NotDetected) Influenza Type A (PCR) Not Detected (NotDetected) Influenza Type B (PCR) Not Detected (NotDetected) M. pneumoniae (PCR) Not Detected (NotDetected) Parainfluenza 1 (PCR) Not Detected (NotDetected) Parainfluenza 2 (PCR) Not Detected (NotDetected) Parainfluenza 3 (PCR) Not Detected (NotDetected) Parainfluenza 4 (PCR) Not Detected (NotDetected) RSV (PCR) Not Detected (NotDetected) Entero/Rhino (PCR) Not Detected (NotDetected) 05/29/24 05/29/24 05/29/24 Range/Units 10:51 12:20 12:25 WBC (4.8-10.8) K/ul RBC (4.70-6.10) M/uL Hgb (14.0-18.0) g/dl POC Hgb 12.9 L (14.0-18.0) g/dl Hct (42.0-52.0) % POC Hct 38 L (42-52) % MCV (80.0-100.0) fL MCH (25.0-34.0) pg MCHC (32.0-36.0) g/dL RDW Std Deviation (36.4-46.3) fL RDW Coeff of Ike (11.5-14.5) % Plt Count (130-400) K/uL MPV (9.4-12.4) fL Immature Gran % (Auto) % Neut % (Auto) % Lymph % (Auto) % Meade % (Auto) % Eos % (Auto) % Baso % (Auto) % Neut # (Auto) (1.40-6.50) K/uL Lymph # (Auto) (1.20-3.40) K/uL Meade # (Auto) (0.11-0.59) K/uL Eos # (Auto) (0.00-0.50) K/uL Baso # (Auto) (0.00-0.20) K/uL Immature Gran # (Auto) (0.01-0.20) K/uL PT 13.3 H (9.0-12.0) Seconds INR 1.2 H (0.9-1.1) APTT 29 (21-31) Seconds PTT Ratio 1.1 VBG pH (7.36-7.41) VBG pCO2 (38-50) mmHg VBG pO2 mmHg VBG HCO3 mmol/L VBG O2 Saturation % VBG Base Excess mEq/L POC Sodium 138 (135-144) mmol/L Sodium (136-145) mmol/L POC Potassium 4.1 (3.3-5.0) mmol/L Potassium (3.5-5.1) mmol/L POC Chloride 97 L (101-112) mmol/L Chloride (98-107) mmol/L Carbon Dioxide (21-32) mmol/L POC Total CO2 33 H (24-31) mmol/L Anion Gap (3-11) POC Anion Gap 13.0 L (16-25) mmol/L POC BUN 24 H (7-18) mg/dl BUN (6-23) mg/dl Creatinine (0.6-1.4) mg/dl POC Creatinine 1.2 (0.6-1.3) mg/dl Est Cr Clr Drug Dosing ml/min eGFR BUN/Creatinine Ratio (10-20) Glucose (70-99(Fasting)) mg/dl POC Glucose (other) 137 H (70-99) mg/dl Calcium (8.6-10.3) mg/dl POC Ioniz Calcium Gloria 1.10 L (1.12-1.32) mmol/l Magnesium 1.9 (1.7-2.4) mg/dl Total Bilirubin (0.2-1.0) mg/dl AST (13-39) U/L ALT (7-52) U/L Alkaline Phosphatase (34-104) U/L Troponin I High Sens 1069.7 H* (0-20) pg/ml Total Protein (6.0-8.3) gm/dl Albumin (3.4-5.0) gm/dl Globulin (2.5-4.0) gm/dl Albumin/Globulin Ratio (0.9-2) Lipase (11-82) U/L Procalcitonin (0-0.5) ng/ml Adenovirus (PCR) (NotDetected) B. pertussis DNA (PCR) (NotDetected) B.parapertussis DNA PCR (NotDetected) C. pneumoniae DNA (PCR) (NotDetected) Coronavirus OC43 (PCR) (NotDetected) Coronavirus HKU1 (PCR) (NotDetected) Coronavirus 229E (PCR) (NotDetected) SARS-CoV-2 (PCR) (NotDetected) Coronavirus NL63 (PCR) (NotDetected) Human Metapneumovir PCR (NotDetected) Influenza Type A (PCR) (NotDetected) Influenza Type B (PCR) (NotDetected) M. pneumoniae (PCR) (NotDetected) Parainfluenza 1 (PCR) (NotDetected) Parainfluenza 2 (PCR) (NotDetected) Parainfluenza 3 (PCR) (NotDetected) Parainfluenza 4 (PCR) (NotDetected) RSV (PCR) (NotDetected) Entero/Rhino (PCR) (NotDetected) Administered Medications Heparin Sodium/Dextrose (Heparin 66312 Unit/500 Ml) 25,000 units in 500 mls @ 30 mls/hr IV .[id number] [facility]; Protocol Stop: 06/28/24 12:14 Last Admin: 05/29/24 13:07 Dose: 1,500 units/hr, 30 mls/hr Documented By: ESPERANZA Co-signed By: CATERINA Amiodarone HCl/Dextrose (Nexterone / D5w) 360 mg in 200 mls @ 33.333 mls/hr IV ONE ONE Stop: 05/29/24 18:44 Last Admin: 05/29/24 13:10 Dose: 1 mg/min, 33.3 mls/hr Documented By: ESPERANZA Co-signed By: CATERINA Discontinued Medications Amiodarone HCl (Amiodarone Iv Bolus & Drip) 1 each IV NOW STA; Protocol Stop: 05/29/24 12:36 Last Admin: 05/29/24 13:01 Dose: Not Given Documented By: ESPERANZA Heparin Sodium (Porcine) (Heparin Sod (Porcine) 1000 Unit/Ml) 1 units IV NOW ONE Stop: 05/29/24 12:15 Last Admin: 05/29/24 13:11 Dose: Not Given Documented By: ESPERANZA Heparin Sodium/Dextrose (Heparin Iv Adult Wt-Based Low-Dose W/ Initial Bolus Protocol) 1 each IV NOW STA; Protocol Stop: 05/29/24 12:00 Last Admin: 05/29/24 13:12 Dose: Not Given Documented By: ESPERANZA Amiodarone HCl/Dextrose (Nexterone / D5w) 150 mg in 100 mls @ 600 mls/hr IV NOW STA Stop: 05/29/24 12:44 Last Infusion: 05/29/24 13:15 Dose: Infused Documented By: ESPERANZA Co-signed By: CATERINA Admin: 05/29/24 12:55 Dose: 600 mls/hr Documented By: ESPERANZA Co-signed By: CATERINA Magnesium Sulfate/Dextrose (Magnesium Sulfate / D5w) 1 gm in 100 mls @ 600 mls/hr IV Q10M [facility] Stop: 05/29/24 13:28 Last Infusion: 05/29/24 14:03 Dose: Infused Documented By: Admin: 05/29/24 13:51 Dose: 600 mls/hr Documented By: Infusion: 05/29/24 13:45 Dose: Infused Documented By: Admin: 05/29/24 13:34 Dose: 600 mls/hr Documented By: ESPERANZA Ioversol (Optiray 320 125ml) 77 ml IV ONCE ONE Stop: 05/29/24 11:32 Last Admin: 05/29/24 11:31 Dose: 77 ml Documented By: LE Levalbuterol HCl (Levalbuterol 1.25 Mg/3 Ml Neb) 1.25 mg NEB NOW STA Stop: 05/29/24 11:04 Last Admin: 05/29/24 11:31 Dose: 1.25 mg Documented By: ESPERANZA Methylprednisolone (Methylprednisolone 125 Mg/2 Ml Vial) 125 mg IV NOW STA Stop: 05/29/24 10:48 Last Admin: 05/29/24 10:57 Dose: 125 mg Documented By: ESPERANZA Miscellaneous (Stat Iv Infusion Titration Per Protocol) 1 each N/A NOW STA Stop: 05/29/24 12:36 Last Admin: 05/29/24 13:11 Dose: Not Given Documented By: RAMONA Imaging Data Radiologist's Impression: Chest X-Ray 05/29/24 10:38 XR chest 1V portable CLINICAL HISTORY: Chest pain, nonspecific COMPARISON STUDY: 06/01/2019 FINDINGS: Stable mild cardiomegaly without pulmonary vascular congestion. Stable hyperexpanded lungs. No effusion, consolidation, or pneumothorax. IMPRESSION: No acute findings ACT 112: Negative or not required by law. Electronically signed by: Renny Sullivan M.D. 05/29/2024 10:59 AM Chest CTA 05/29/24 10:49 CT angio chest PE protocol CT DOSE: 741.4 mGy.cm HISTORY: 78 years-old Male with PE. Acute shortness of breath TECHNIQUE: Multiple CTA images of the chest were obtained after the intravenous administration of 77 ml Optiray. Coronal and sagittal MIPS were obtained from the axial data set and were submitted for review. All measurements were obtained according to NASCET criteria. A dose lowering technique was utilized adhering to the principles of ALARA. COMPARISON: Chest CT 01/28/2024 FINDINGS: CTA: Heart is upper limits of normal in size. Extensive coronary artery calcifications. No pericardial effusion. Aorta and left heart structures are not well evaluated secondary to contrast bolus timing. No central pulmonary emboli identified. The segmental and subsegmental branches are not well evaluated secondary to contrast bolus timing. CT CHEST: No thyroid nodule. Mildly enlarged mediastinal and hilar lymph nodes including right hilar lymph nodes measuring up to 1.3 cm and paratracheal lymph nodes measuring up to 1.1 cm. These have mildly increased in size from prior. Small layering pleural effusions. Emphysema with bronchial wall thickening and mucous plugging. Mild dependent subsegmental bibasilar atelectasis. Patchy multilobar distribution reticulonodular opacities most pronounced in the upper lung zones. Intralobular septal thickening. Previously noted 10 mm thick-walled cystic focus within the right upper lobe now measures 8 mm, favored to be benign. Small hiatal hernia with mild esophageal wall thickening distally. No acute fracture. IMPRESSION: 1. No pulmonary emboli identified. 2. Emphysema with bronchial wall thickening and patchy reticular nodular opacities which are likely infectious or inflammatory. 3. Cardiomegaly with suggestion of mild pulmonary edema and small pleural effusions. 4. Thick-walled cystic focus of the right upper lobe previously measured 10 mm now measures 8 mm. This is favored to be benign. ACT 112: Negative or not required by law. The above report was generated using voice recognition software. It may contain grammatical, syntax or spelling errors. Electronically signed by: Alonso Briseno M.D. 05/29/2024 12:44 PM Discharge Plan Visit Data Chief Complaint: Chest Pain Stated Complaint: CHEST PAIN ED Provider: Aleksey Fish Discharge Problem: Atrial fibrillation with rapid ventricular response, Demand ischemia of myocardium, Acute respiratory failure with hypoxia, Acute hypercapnic respiratory failure, Acute exacerbation of chronic obstructive pulmonary disease (COPD) Patient Disposition: Admitted As Inpatient Discharge Instructions Interventions: ED Discharge Assessment Last Done: 05/29/24 13:54
[2024-05-29 11:26] LABS: Albumin Globulin Ratio 1.2 (0.9-2); Albumin Level 3.8 gm/dl (3.4-5.0); BUN Creatinine Ratio 21.4 (10-20); Bilirubin,Total 0.8 mg/dl (0.2-1.0); Calcium 9.9 mg/dl (8.6-10.3); Creatinine Clr Calc Pharmacy 72.3 ml/min; Globulin 3.3 gm/dl (2.5-4.0); Potassium 4.2 mmol/L (3.5-5.1); Total Protein 7.1 gm/dl (6.0-8.3)
[2024-05-29] MEDS: LEVALBUTEROL 1.25 MG/3 ML NEB NEB STA (11:31)
[2024-05-29] MEDS: OPTIRAY 320 125ml IV ONE (11:31)
[2024-05-29 11:38] LABS: Troponin I High Sensitivity 1129.2 pg/ml (0-20)
[2024-05-29 11:49] LABS: Adenovirus PCR Not Detected (NotDetected); Bordetella parapertussis PCR Not Detected (NotDetected); Bordetella pertussis PCR Not Detected (NotDetected); Chlamydia pneumoniae PCR Not Detected (NotDetected); Coronavirus 229E PCR Not Detected (NotDetected); Coronavirus CoV-2 (COVID19)PCR Not Detected (NotDetected); Coronavirus HKU1 PCR Not Detected (NotDetected); Coronavirus NL63 PCR Not Detected (NotDetected); Coronavirus OC43PCR Not Detected (NotDetected); Human Metapneumovirus PCR Not Detected (NotDetected); Influenza A PCR Not Detected (NotDetected); Influenza B PCR Not Detected (NotDetected); Mycoplasma pneumoniae PCR Not Detected (NotDetected); Parainfluenza Virus 1 PCR Not Detected (NotDetected); Parainfluenza Virus 2 PCR Not Detected (NotDetected); Parainfluenza Virus 3 PCR Not Detected (NotDetected); Parainfluenza Virus 4 PCR Not Detected (NotDetected); Respiratory Syncytial VirusPCR Not Detected (NotDetected); Rhinovirus/Enterovirus PCR Not Detected (NotDetected)
[2024-05-29] MEDS ORDERED: 0.2 MICRON FILTER SET 1 EACH IV STA (12:35)
--- NOTE | 2024-05-29 12:45 | CT Scan Report ---
CT angio chest PE protocol CT DOSE: 741.4 mGy.cm HISTORY: 78 years-old Male with PE. Acute shortness of breath TECHNIQUE: Multiple CTA images of the chest were obtained after the intravenous administration of 77 ml Optiray. Coronal and sagittal MIPS were obtained from the axial data set and were submitted for r eview. All measurements were obtained according to NASCET criteria. A dose lowering technique was ut ilized adhering to the principles of ALARA. COMPARISON: Chest CT 01/28/2024 FINDINGS: CTA: Heart is upper limits of normal in size. Extensive coronary artery calcifications. No pericardial eff usion. Aorta and left heart structures are not well evaluated secondary to contrast bolus timing. No central pulmonary emboli identified. The segmental and subsegmental branches are not well evaluated s econdary to contrast bolus timing. CT CHEST: No thyroid nodule. Mildly enlarged mediastinal and hilar lymph nodes including right hilar lymph node s measuring up to 1.3 cm and paratracheal lymph nodes measuring up to 1.1 cm. These have mildly incre ased in size from prior. Small layering pleural effusions. Emphysema with bronchial wall thickening a nd mucous plugging. Mild dependent subsegmental bibasilar atelectasis. Patchy multilobar distribution reticulonodular opacities most pronounced in the upper lung zones. Intralobular septal thickening. P reviously noted 10 mm thick-walled cystic focus within the right upper lobe now measures 8 mm, favore d to be benign. Small hiatal hernia with mild esophageal wall thickening distally. No acute fracture. IMPRESSION: 1. No pulmonary emboli identified. 2. Emphysema with bronchial wall thickening and patchy reticular nodular opacities which are likely i nfectious or inflammatory. 3. Cardiomegaly with suggestion of mild pulmonary edema and small pleural effusions. 4. Thick-walled cystic focus of the right upper lobe previously measured 10 mm now measures 8 mm. Thi s is favored to be benign. ACT 112: Negative or not required by law. The above report was generated using voice recognition software. It may contain grammatical, syntax o r spelling errors. Electronically signed by: Alonso Briseno M.D. 05/29/2024 12:44 PM
[2024-05-29] MEDS: AMIODARONE / D5W 150 MG/100 ML BAG IV STA (12:55)
[2024-05-29] MEDS: AMIODARONE IV BOLUS & DRIP IV STA (13:01)
[2024-05-29] MEDS: HEPARIN 25000 UNIT/500 ML 25,000 UNITS/500 ML BAG IV SCH (13:07)
[2024-05-29] MEDS: AMIODARONE / D5W 360 MG/200 ML BAG IV ONE (13:10)
[2024-05-29] MEDS: HEPARIN SOD (PORCINE) 1000 UNIT/ML IV ONE (13:11)
[2024-05-29] MEDS: STAT IV Infusion **Titration per Protocol STA (13:11)
[2024-05-29 13:12] LABS: INR 1.2 (0.9-1.1); Partial Thromboplastin Ratio 1.1; Partial Thromboplastin Time 29 Seconds (21-31); Prothrombin Time 13.3 Seconds (9.0-12.0)
[2024-05-29] MEDS: Heparin IV Adult Wt-Based Low-Dose w/ INITIAL Bolus Protocol IV STA (13:12)
[2024-05-29 13:30] LABS: Magnesium 1.9 mg/dl (1.7-2.4)
[2024-05-29] MEDS: MAGNESIUM SULFATE / D5W 1 GM/100 ML BAG IV SCH (13:34)
[2024-05-29 13:36] LABS: Troponin I High Sensitivity 1069.7 pg/ml (0-20)
--- NOTE | 2024-05-29 13:38 | History & Physical Report ---
Date of Service May 29, 2024 Assessment & Plan (1) Acute hypercapnic respiratory failure: Plan: Admit to PCU - Heart healthy diet - VS per unit protocol - Continue BiPAP at settings of 10/5 - Repeat ABG ~60 minutes after placing bipap to reassess hypercapnia - Suspect due to AECOPD (2) Paroxysmal atrial fibrillation with RVR: Plan: Acute but stable - Current rates in the 110-130s - Avoid BB so as to not potentially induce bronchospasm - D/w cards, plan is to give Amiodarone bolus followed by gtt - Hold home diltiazem so as to not drop his BP and home xarelto in favor of heparin gtt - Suspect driven by AECOPD, electrolytes WNL - Cardiology consult placed, appreciate assistance - Update echo (3) Acute exacerbation of chronic obstructive pulmonary disease (COPD): Plan: Underlying severe/advanced obstructive lung disease - Pt continues to smoke, counseling provided - BiPAP as noted above - Received a dose of Xopenex 1.25mg nebulized x1 in ED along with dose of Methylpred 125mg IV x1 - Will place on nebulized budesonide/formoterol BID - Trial Mag Sulfate 2g IV - Goal sat 88-92% - Cautious to implement use of azithromycin or doxycycline in the setting of prolonged qtc - most recent ekg demonstrates qtc of 491 (4) CAD (coronary artery disease): Plan: Chronic with acutely elevated HS troponin - HS trop elevated at 1129 --> repeat 1069 - Suspect based on duration of sx that this does not represent true ACS and likely significant demand ischemia in setting of hypercapnic respiratory failure and afib w/ rvr - Defer BB therapy due to AECOPD as noted above - Heparin gtt initiated d/t acute elevation in troponin - Continue aspirin - Uncertain why pt is not already on a statin given h/o CAD/NV/RANJAN- last lipid panel in August reflected LDL 57, total cholesterol 125 and TG 133 - Update echo - Consult cardiology, appreciate assistance Plan Chronic medical problems: GERD = continue omeprazole CBC, CMP, and mag level ordered for tomorrow AM. Above plan of care has been d/w Dr. Mcfadden who has also seen and evaluated this patient. Further orders will be implemented as clinically warranted. History of Present Illness Chief Complaint: Chest tightness/SOB Primary Care Provider: MD Mingo Archer is a 78 yo M with a pmhx of advanced COPD, chronic respiratory failure wears 2L NC continuously, CAD h/o NV/PCI with RANJAN, afib, and moderate to severe who presented to the ER c/o increased dyspnea and chest pain. His notes that his dyspnea has been going on for months and he endorses cough that is productive of sputum. notes that he has been wheezing at home. He is also notes that the chest pain that he has been experiencing is not new. He reports pain on the left side of his chest, some numbness in his left arm and pain into his jaw. He feels mostly that he experiences pain when his heart rate is high, which he reports has been happening quite frequently. This is consistent with Dr. Dinero's last cardiology note from March 2024 where he notes that he experiences angina pectoris when in afib w/ rvr. His w/u in the ER today reveals an elevated wbc count of 13.90 with neutrophilic predominance. A VBG performed showed a pH of 7.24 and a pCO2 of 80. His HS trop was elevated at 1129. EKG demonstrated afib w/ rvr at a rate of 152 bpm. He was ordered hepatin gtt and placed on NIPPV with bipap with settings of 10/5. He is currently awake, alert and accompanied by his and son. He has been medicated also for his AECOPD with xopenex via neb and methylprednisolone 125mg IV x1. Cardiology has been contacted and he is being started on Amiodarone with a bolus and then gtt. He has been referred to hospital medicine team for further care. Allergies Allergy/AdvReac Type Severity Reaction Status Date / Time Penicillins Allergy Unknown ` Verified 05/29/24 13:33 Home Medications Medication Instructions Recorded Confirmed Type Miscellaneous Pulmonary Supply #1 ea 08/16/20 04/13/24 Rx albuterol sulfate 90 mcg/actuation 2 inh inhalation Q6H PRN Shortness 02/18/24 05/29/24 Rx aerosol inhaler Of Breath Or Wheezing #18 grams aspirin 81 mg tablet,delayed 81 mg PO DAILY 05/29/24 05/29/24 History release cetirizine 10 mg tablet 10 mg PO DAILY PRN Itchy skin 05/29/24 05/29/24 History cholecalciferol (vitamin D3) 25 25 mcg PO DAILY 05/29/24 05/29/24 History mcg (1,000 unit) tablet (Vitamin D3) diltiazem HCl 30 mg tablet 30 mg PO TID 05/29/24 05/29/24 History fluticasone 500 mcg-salmeterol 50 0 inh inhalation BID 05/29/24 05/29/24 History mcg/dose blistr powdr for inhalation nitroglycerin 0.4 mg sublingual 0.4 mg sublingual DAILY PRN Chest 05/29/24 05/29/24 History tablet Pain omeprazole 20 mg capsule,delayed 20 mg PO DAILY 05/29/24 05/29/24 History release rivaroxaban 20 mg tablet (Xarelto) 0 mg PO DAILY 05/29/24 05/29/24 History Past Med/Surg History Problem List (Updated 05/29/24 @ 17:04 by Aleksey Fish MD) Atrial fibrillation with rapid ventricular response (Acute) Demand ischemia of myocardium (Acute) Severe aortic stenosis Acute exacerbation of chronic obstructive pulmonary disease (COPD) (Acute) Paroxysmal atrial fibrillation with RVR Acute hypercapnic respiratory failure (Acute) Stented coronary artery Peripheral eosinophilia Carotid artery stenosis Tibial plateau fracture, right Cerebrovascular disease Multiple pulmonary nodules Right wrist fracture Nocturnal hypoxia Current smoker Allergic rhinitis History of right hip replacement PAF (paroxysmal atrial fibrillation) Aortic stenosis Acute respiratory failure with hypoxia (Acute) Vitamin D deficiency Palpitations Diverticulitis (Acute) Abscess (Acute) Hypokalemia (Acute) COPD (chronic obstructive pulmonary disease) (Chronic) Hypertension (Chronic) CAD (coronary artery disease) (Chronic) Medical History (Updated 05/29/24 @ 17:04 by Aleksey Fish MD) Right radial fracture Closed right hip fracture Psoriasis Past myocardial infarction Male erectile disorder of organic origin Aneurysm of abdominal aorta Closed fracture of right hip Psoriasis Dyslipidemia Hypertension History of left heart catheterization CAD (coronary artery disease) COPD (chronic obstructive pulmonary disease) Abscess Diverticulitis Surgical History History of cataract surgery Family History Father Myocardial infarction Social History Smoking Status: Current every day smoker Tobacco Type: Cigarettes packs per day: 1; Cigarettes Per Day: 3; Second Hand Exposure: No; Do You Dip or Chew Tobacco: No; Hx Alcohol Use: No Hx Substance Use: No Preferred Language: Swiss Communication Ability: Effective Beliefs That Will Affect Care: None marital status: Current Living Situation: Spouse Feels Safe at Home: Yes Assistive Devices: Oxygen - Continuous Review of Systems 2 Review of Systems: All systems reviewed and are unremarkable except as noted in HPI and below. Denies fever, chills, fatigue, headache, nasal congestion, sore throat, palpitations, orthopnea, PND, abdominal pain, n/v/d, constipation, dysuria, hematuria, frequency, back pain, joint pain or swelling, easy bruising or bleeding, skin lesions or rashes. Physical Exam 2 Physical Exam: GENERAL: 78 yo well nourished appearing WM. A&O x3. No distress. EYES: EOMI. PERRLA. Anicteric. HENT: Moist mucous membranes. No scleral icterus. No cervical lymphadenopathy. LUNGS: Currently on BiPAP. No accessory muscle use. Poor air exchange throughout. No wheezes/rhonchi/rales present. CARDIOVASCULAR: Irregular rate and rhythm ABDOMEN: Soft, non-tender and non-distended. Bowel sounds normoactive x 4 quad. EXTREMITIES: No edema. Non-tender. Peripheral pulses +2/4. NEUROLOGIC: No focal neurological deficits. CN II-XII grossly intact. PSYCHIATRIC: Cooperative. Appropriate mood and affect. SKIN: Warm, dry, intact. No rashes or lesions. Results & Data Results & Data Vital Signs (Past 12 Hours) Vital Signs Temp Pulse Pulse Resp BP BP Pulse Ox 05/29/24 12:07 122 H 19 99 05/29/24 12:03 143 H 18 98 05/29/24 12:00 104/87 05/29/24 11:45 137 H 05/29/24 11:39 130 H 15 100 05/29/24 11:33 153 H 16 91 05/29/24 11:32 132 H 25 H 112/82 97 05/29/24 11:15 112/82 05/29/24 11:15 112/82 05/29/24 11:15 114 H 21 94 05/29/24 11:00 114 H 22 92 05/29/24 11:00 110/80 05/29/24 10:53 143 H 92 05/29/24 10:52 120 H 28 H 101/75 92 05/29/24 10:52 88 L 05/29/24 10:46 101/75 05/29/24 10:45 115 H 22 93 05/29/24 10:32 05/29/24 10:32 36.4 C L 119 H 22 123/79 88 L O2 Del Method O2 Flow Rate FiO2 05/29/24 12:07 30 05/29/24 12:03 05/29/24 12:00 05/29/24 11:45 05/29/24 11:39 05/29/24 11:33 05/29/24 11:32 Nasal Cannula 2 05/29/24 11:15 05/29/24 11:15 05/29/24 11:15 05/29/24 11:00 05/29/24 11:00 05/29/24 10:53 Nasal Cannula 2 05/29/24 10:52 Nasal Cannula 2 05/29/24 10:52 Nasal Cannula 0 05/29/24 10:46 05/29/24 10:45 05/29/24 10:32 Nasal Cannula 2 05/29/24 10:32 Room Air Laboratory Results 05/29/24 10:37 05/29/24 10:37 Diagnostic Findings Chest X-Ray 05/29/24 10:38 XR chest 1V portable CLINICAL HISTORY: Chest pain, nonspecific COMPARISON STUDY: 06/01/2019 FINDINGS: Stable mild cardiomegaly without pulmonary vascular congestion. Stable hyperexpanded lungs. No effusion, consolidation, or pneumothorax. IMPRESSION: No acute findings ACT 112: Negative or not required by law. Electronically signed by: Renny Sullivan M.D. 05/29/2024 10:59 AM Chest CTA 05/29/24 10:49 CT angio chest PE protocol CT DOSE: 741.4 mGy.cm HISTORY: 78 years-old Male with PE. Acute shortness of breath TECHNIQUE: Multiple CTA images of the chest were obtained after the intravenous administration of 77 ml Optiray. Coronal and sagittal MIPS were obtained from the axial data set and were submitted for review. All measurements were obtained according to NASCET criteria. A dose lowering technique was utilized adhering to the principles of ALARA. COMPARISON: Chest CT 01/28/2024 FINDINGS: CTA: Heart is upper limits of normal in size. Extensive coronary artery calcifications. No pericardial effusion. Aorta and left heart structures are not well evaluated secondary to contrast bolus timing. No central pulmonary emboli identified. The segmental and subsegmental branches are not well evaluated secondary to contrast bolus timing. CT CHEST: No thyroid nodule. Mildly enlarged mediastinal and hilar lymph nodes including right hilar lymph nodes measuring up to 1.3 cm and paratracheal lymph nodes measuring up to 1.1 cm. These have mildly increased in size from prior. Small layering pleural effusions. Emphysema with bronchial wall thickening and mucous plugging. Mild dependent subsegmental bibasilar atelectasis. Patchy multilobar distribution reticulonodular opacities most pronounced in the upper lung zones. Intralobular septal thickening. Previously noted 10 mm thick-walled cystic focus within the right upper lobe now measures 8 mm, favored to be benign. Small hiatal hernia with mild esophageal wall thickening distally. No acute fracture. IMPRESSION: 1. No pulmonary emboli identified. 2. Emphysema with bronchial wall thickening and patchy reticular nodular opacities which are likely infectious or inflammatory. 3. Cardiomegaly with suggestion of mild pulmonary edema and small pleural effusions. 4. Thick-walled cystic focus of the right upper lobe previously measured 10 mm now measures 8 mm. This is favored to be benign. ACT 112: Negative or not required by law. The above report was generated using voice recognition software. It may contain grammatical, syntax or spelling errors. Electronically signed by: Alonso Briseno M.D. 05/29/2024 12:44 PM ECG Additional Comments: EKG = afib w/ rvr at rate in the 150s Code Status & VTE Plan Code Status DNR/DNI in event of cardiac arrest, confirmed with pt and family at bedside Supervising Physician Co-Signing Physician Notes I personally saw and examined the patient. I independently reviewed the labs, EKG, imaging, problem list, medication list, past medical history and family history. I verified all goodman points and agree with Tara Harris PA-C with the following exceptions and/or additions: 78-year-old male with moderate to severe aortic stenosis and severe COPD with ongoing tobacco use presents to the ER with shortness of breath. Noted to be in atrial fibrillation with rapid ventricular rates on arrival. Known to have paroxysmal atrial fibrillation with angina during episodes. O/E HS increased rate, irregular rhythm, no bilateral, poor air entry bilaterally on chest auscultation, abdomen distended, significant respiratory distress and unable to complete full sentences with accessory muscle use A/P Acute hypoxic hypercapnic respiratory failure - continue BiPAP, suspect secondary to A-fib RVR with severe COPD exacerbation Severe COPD with exacerbation -poor air movement on exam, mag sulfate 2 g IV, Solu-Medrol 125 mg IV given in ER continue this, DuoNeb, formoterol, budesonide Atrial fibrillation with rapid ventricular rate - cardiology contacted by ER provider and recommended IV amiodarone which given historically he has angina during episodes suspect this is what he is feeling and goal be to get him out of atrial fibrillation. He is currently hemodynamically stable therefore no need for electrical cardioversion at this time and he is not keen on this idea either. Cardiology consulted Elevated troponin - suspect he has underlying coronary artery disease with known aortic stenosis and this is demand ischemia however unable to rule out ACS at this time and will get echocardiogram to assess for regional wall abnormality PG Care Time/CCT Total # of Minutes Spent Total Time Spent with Patient: Total time spent is greater than 50% in coordination of care (as documented) at patient's floor/unit and/or counseling patient: 77 minutes Coding Level of Care Code 95447 INT INP/OBS CARE 3/75MIN Diagnoses Acute hypercapnic respiratory failure J96.02 Paroxysmal atrial fibrillation with RVR I48.0 Acute exacerbation of chronic obstructive pulmonary disease (COPD) J44.1 Coronary artery disease involving [place] coronary artery of [place] heart without angina pectoris I25.10 Associated angina: without angina Coronary Disease-Associated Artery/Lesion type: [place] artery [place] vs. transplanted heart: big [place] heart (4) CAD (coronary artery disease) Associated angina: without angina Coronary Disease-Associated Artery/Lesion type: [place] artery [place] vs. transplanted heart: [place] heart Qualified Code(s): I25.10 - Atherosclerotic heart disease of [place] coronary artery without angina pectoris
--- NOTE | 2024-05-29 13:38 | Electrocardiogram Report ---
Test Reason : Blood Pressure : */* mmHG Vent. Rate : 152 BPM Atrial Rate : * BPM P-R Int : * ms QRS Dur : 110 ms QT Int : 322 ms P-R-T Axes : * 79 234 degrees QTcB Int : 511 ms Atrial fibrillation with rapid ventricular response Marked ST abnormality, possible anterior subendocardial injury Abnormal ECG When compared with ECG of 02-Jun-2019 10:05, Sinus rhythm no longer present HR has increased by [address] depression in Anterior leads now present Confirmed by Oscar Fernando ([id number]) on 05/29/2024 1:37:43 PM Referred By: Confirmed By: Oscar Fernando
[2024-05-29 14:24] VITALS: PULSE 98; RESP 16; O2SAT 97
--- NOTE | 2024-05-29 14:25 | Electrocardiogram Report ---
Test Reason : Blood Pressure : */* mmHG Vent. Rate : 113 BPM Atrial Rate : * BPM P-R Int : * ms QRS Dur : 104 ms QT Int : 358 ms P-R-T Axes : * 76 262 degrees QTcB Int : 491 ms Atrial fibrillation with rapid ventricular response ST depression in Anterior leads , consider ischemia Abnormal ECG When compared with ECG of 29-May-2024 10:29, ST less depressed in Anterior leads HR has decreased by 39 bpm Confirmed by Oscar Fernando ([id number]) on 05/29/2024 2:24:46 PM Referred By: REFERRED SELF Confirmed By: Oscar Fernando
--- NOTE | 2024-05-29 14:52 | Cardiology Consultation ---
Date of Consultation May 29, 2024 Assessment & Plan (1) Paroxysmal atrial fibrillation with RVR: (2) Acute exacerbation of chronic obstructive pulmonary disease (COPD): (3) Severe aortic stenosis: (4) COPD (chronic obstructive pulmonary disease): (5) CAD (coronary artery disease): (6) Past myocardial infarction: (7) Demand ischemia of myocardium: Plan 78-year-old man with clinically severe aortic stenosis, significant COPD, CAD which had been quiescent recently, and paroxysmal atrial fibrillation with current recurrence with rapid ventricular rate. Given the low likelihood that he would tolerate any sustained tachycardia or frequent recurrences of atrial fibrillation given his comorbidities of severe /COPD, favor rhythm control strategy if possible. Currently on IV amiodarone for rate control, would continue this overnight as an IV amiodarone load, could shift to oral loading tomorrow by initiating amiodarone 200 mg every 8 hours until discharge, then amiodarone 200 mg twice daily. If heart rate remains above 110 bpm, could give metoprolol tartrate 5 mg IV every 6 hours PRN for additional rate control. He was placed on IV heparin for possible acute coronary syndrome, although troponin is elevated the curve is flat and he is having no ongoing chest pain. Far more likely that he has demand ischemia given his known CAD, severe , and marked tachycardia. Reasonable to continue the heparin as anticoagulation for his atrial fibrillation, tomorrow could switch to apixaban 5 mg twice daily. His bronchospasm is being treated with IV steroids and beta agonist nebulizers. At the time of my evaluation he was clinically stable with improving hemodynamics and no symptoms at rest. Once he has stabilized clinically, likely could be considered for transcatheter aortic valve replacement (TAVR) in the future. As noted, he follows with Dr. Dinero routinely. Dr. Hernandez will be rounding for the weekend, will ask him to check in on Mr. Willson. 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 Dinero routinely, admitted today after noting progressive dyspnea over the past few days culminating in chest discomfort today, found to have atrial fibrillation with rapid ventricular response. He does not note any recent weight change, leg edema, orthopnea, or PND. He did note increased wheezing and tachypalpitations followed ultimately by left-sided chest discomfort that sometimes radiates to his left arm and jaw. No fever chills or rigors, but he has had a cough which is mildly productive. Cardiac data: Initial ECG showed atrial fibrillation with ventricular rate 152 bpm, marked anterior ST depression. Compared with 2019 study, sinus rhythm no longer present and heart rate is increased by 96 bpm. A second ECG showed atrial fibrillation with ventricular rate 113 bpm, anterior ST depression was less pronounced and the heart rate had decreased by 39 bpm. Initial troponins 1129 and 1069. Chest x-ray unremarkable. Chest CT with emphysema and reticular nodular opacities which may be infectious/inflammatory, no pulmonary embolism. Mild pulmonary edema with small pleural effusions. Echocardiogram August 2023 showed EF 60-65% with moderate to severe aortic stenosis, no change compared with 2022. Valve area not described but aortic outflow velocity was 3.8 m/s. After initiation of IV amiodarone for rate control, patient felt significantly better. He was on BiPAP initially, but was not tolerating it well and insisted it be removed. After the BiPAP was off, he denied any dyspnea or chest pain. He had no somatic complaints at rest at the time of my evaluation this afternoon. Allergies Allergy/AdvReac Type Severity Reaction Status Date / Time Penicillins Allergy Unknown ` Verified 05/29/24 13:33 Home Medications Medication Instructions Recorded Confirmed Type Miscellaneous Pulmonary Supply #1 ea 08/16/20 04/13/24 Rx albuterol sulfate 90 mcg/actuation 2 inh inhalation Q6H PRN Shortness 02/18/24 05/29/24 Rx aerosol inhaler Of Breath Or Wheezing #18 grams aspirin 81 mg tablet,delayed 81 mg PO DAILY 05/29/24 05/29/24 History release cetirizine 10 mg tablet 10 mg PO DAILY PRN Itchy skin 05/29/24 05/29/24 History cholecalciferol (vitamin D3) 25 25 mcg PO DAILY 05/29/24 05/29/24 History mcg (1,000 unit) tablet (Vitamin D3) diltiazem HCl 30 mg tablet 30 mg PO TID 05/29/24 05/29/24 History fluticasone 500 mcg-salmeterol 50 0 inh inhalation BID 05/29/24 05/29/24 History mcg/dose blistr powdr for inhalation nitroglycerin 0.4 mg sublingual 0.4 mg sublingual DAILY PRN Chest 05/29/24 05/29/24 History tablet Pain omeprazole 20 mg capsule,delayed 20 mg PO DAILY 05/29/24 05/29/24 History release rivaroxaban 20 mg tablet (Xarelto) 0 mg PO DAILY 05/29/24 05/29/24 History Patient History Medical History (Updated 05/29/24 @ 15:04 by Oscar Fernando MD) Right radial fracture Closed right hip fracture Psoriasis Past myocardial infarction Male erectile disorder of organic origin Aneurysm of abdominal aorta Closed fracture of right hip Psoriasis Dyslipidemia Hypertension History of left heart catheterization CAD (coronary artery disease) COPD (chronic obstructive pulmonary disease) Abscess Diverticulitis Surgical History History of cataract surgery Family History Father Myocardial infarction Social History Smoking Status: Current every day smoker Tobacco Type: Cigarettes packs per day: 1; Cigarettes Per Day: 3; Second Hand Exposure: No; Do You Dip or Chew Tobacco: No; Hx Alcohol Use: No Hx Substance Use: No Preferred Language: Sammarinese Communication Ability: Effective Beliefs That Will Affect Care: None marital status: Current Living Situation: Spouse Feels Safe at Home: Yes Assistive Devices: Oxygen - Continuous Physical Exam Physical Exam: Elderly white male who does not appear acutely distressed. Afebrile. BP 90/69 mmHg. Pulse 110 bpm and irregular. Respirations 16 and unlabored. Skin: no ecchymoses or generalized lesions. HEENT: unremarkable. Neck: JVP showed increased respiratory variation but the meniscus was not substantially elevated, no obvious carotid sounds on difficult exam. Lungs: Moderately decreased breath sounds with occasional expiratory wheezes. No accessory muscle use or crackles. Cardiac: Irregular/tachycardic rhythm, and audible aortic closure sound, harsh 2/6 crescendo/decrescendo murmur heard best in the suprasternal notch, no obvious diastolic murmur. Abdomen: benign. Extremities: no edema, pulses intact. Neurologic: normal affect and conversation, nonfocal. Results & Data Laboratory Results WBC 13.9, normal hemoglobin, normal platelet count. Venous blood gas with pCO2 of 80. Normal electrolytes, potassium 4.1, magnesium 1.9. BUN 22, creatinine 1.03. Troponins as per HPI. Diagnostic Findings ECGs, chest x-ray, CT as per HPI. PG Care Time/CCT Total # of Minutes Spent Total Time Spent with Patient: Total time spent is greater than 50% in coordination of care (as documented) at patient's floor/unit and/or counseling patient: Coding Level of Care Code 09386 IN/OBS CONSULT LVL 4,60M Diagnoses Paroxysmal atrial fibrillation with RVR I48.0 Acute exacerbation of chronic obstructive pulmonary disease (COPD) J44.1 Severe aortic stenosis I35.0 Chronic obstructive pulmonary disease, unspecified COPD type J44.9 COPD type: unspecified COPD CAD (coronary artery disease) I25.10 Past myocardial infarction I25.2 Demand ischemia of myocardium I24.8 (4) COPD (chronic obstructive pulmonary disease) COPD type: unspecified COPD Qualified Code(s): J44.9 - Chronic obstructive pulmonary disease, unspecified
[2024-05-29 15:09] VITALS: BP 97/66
[2024-05-29] MEDS ORDERED: ONDANSETRON INJ 2 MG/ML 2 ML VIAL IV PRN (15:37)
[2024-05-29] MEDS ORDERED: ALUMINUM/MAGNESIUM SUSP 30 ML UDC PO PRN (15:37)
[2024-05-29] MEDS ORDERED: MAGNESIUM HYDROXIDE SUSP 30 ML UDC PO PRN (15:37)
[2024-05-29] MEDS ORDERED: ACETAMINOPHEN 325 MG TAB PO PRN (15:37)
--- NOTE | 2024-05-29 16:18 | Death Pronouncement Note ---
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
--- NOTE | 2024-05-29 16:37 | XCELERA ---
[id number]
[2024-05-29] MEDS ORDERED: AMIODARONE / D5W 360 MG/200 ML BAG IV SCH (18:45)
[2024-05-29] MEDS ORDERED: FORMOTEROL 20 MCG/2 ML VIAL NEB SCH (19:00)
[2024-05-29] MEDS ORDERED: BUDESONIDE 0.5 MG/2 ML VIAL (PULMICORT) NEB SCH (19:00)
[2024-05-29] MEDS ORDERED: guaiFENesin 600 MG TABCR PO SCH (21:00)
[2024-05-30] MEDS ORDERED: ASPIRIN 81 MG ECTAB PO SCH (09:00)
--- NOTE | 2024-05-30 16:34 | Discharge Summary ---
Discharge Summary Date of Service May 29, 2024 Principal Dx & Hospital Course #1 = Principal Diagnosis (1) Ischemic cardiomyopathy: Mingo Johnson presented to [facility] on April 28, 2024 with severe shortness of breath. He was treated for severe COPD exacerbation with poor air movement on exam. He was also in atrial fibrillation with rapid ventricular rates which he has a history of and was taking anticoagulation therefore started on IV amiodarone to attempt chemical cardioversion. He required BiPAP for acute respiratory failure with hypoxia and hypercapnia. Unbeknownst prior to his his echocardiogram (taken shortly before his but not reported until after) showed severe (presumably ischemic) cardiomyopathy with a left ventricular ejection fraction of less than 15% in the setting of severe aortic stenosis. On transferring from the emergency room bed to hospital bed he became acutely cyanotic with cessation of breathing. Given the subsequent echocardiogram findings I suspect the minimal exertion on transfer was even too much for his heart and he developed a cardiac arrest arrhythmia despite amiodarone use. No attempt at resuscitation was made due to his DO NOT RESUSCITATE status as per his wishes. (2) Acute hypercapnic respiratory failure: (3) Paroxysmal atrial fibrillation with RVR: (4) Acute exacerbation of chronic obstructive pulmonary disease (COPD): (5) CAD (coronary artery disease): Admission HPI Per Admitting Provider Mingo is a 78 yo M with a pmhx of advanced COPD, chronic respiratory failure wears 2L NC continuously, CAD h/o NE/PCI with RANJAN, afib, and moderate to severe who presented to the ER c/o increased dyspnea and chest pain. His notes that his dyspnea has been going on for months and he endorses cough that is productive of sputum. notes that he has been wheezing at home. He is also notes that the chest pain that he has been experiencing is not new. He reports pain on the left side of his chest, some numbness in his left arm and pain into his jaw. He feels mostly that he experiences pain when his heart rate is high, which he reports has been happening quite frequently. This is consistent with Dr. Dinero's last cardiology note from March 2024 where he notes that he experiences angina pectoris when in afib w/ rvr. His w/u in the ER today reveals an elevated wbc count of 13.90 with neutrophilic predominance. A VBG performed showed a pH of 7.24 and a pCO2 of 80. His HS trop was elevated at 1129. EKG demonstrated afib w/ rvr at a rate of 152 bpm. He was ordered hepatin gtt and placed on NIPPV with bipap with settings of 10/5. He is currently awake, alert and accompanied by his and son. He has been medicated also for his AECOPD with xopenex via neb and methylprednisolone 125mg IV x1. Cardiology has been contacted and he is being started on Amiodarone with a bolus and then gtt. He has been referred to hospital medicine team for further care. Discharge Plan Discharge Items Patient Disposition: Other Date/Time: 05/29/24 15:08 Hospital Stay Data Consultations 05/29/24 12:20 ED Decision to Admit Stat Diagnostic Imagining Performed 05/29/24 10:49 CT for pulmonary embolism PE [CT angio chest PE protocol] Stat IMPRESSION: 1. No pulmonary emboli identified. 2. Emphysema with bronchial wall thickening and patchy reticular nodular opacities which are likely infectious or inflammatory. 3. Cardiomegaly with suggestion of mild pulmonary edema and small pleural effusions. 4. Thick-walled cystic focus of the right upper lobe previously measured 10 mm now measures 8 mm. This is favored to be benign. Total Time Total Time Spent Total Time Spent (In Minutes): 25 Coding Level of Care Code None Diagnoses Ischemic cardiomyopathy I25.5 Acute hypercapnic respiratory failure J96.02 Paroxysmal atrial fibrillation with RVR I48.0 Acute exacerbation of chronic obstructive pulmonary disease (COPD) J44.1 Coronary artery disease involving [place] coronary artery of [place] heart without angina pectoris I25.10 Associated angina: without angina Coronary Disease-Associated Artery/Lesion type: [place] artery [place] vs. transplanted heart: [place] heart
== END 2024-05-29 16:59 | disposition expired | DRG 308 ==
LOC: ED 10:24 → 4W 13:18